=== PATIENT | female | born 1930 | race Caucasian/White ===

== ENCOUNTER 2016-11-04 17:10 | Emergency (ER) | payer MEDICARE, BC ==
[2016-11-04] MEDS ORDERED: Sodium Chloride 0.9% 10 ML Syringe FLUSH PRN ×2 (17:23→18:54)
[2016-11-04] MEDS ORDERED: Aspirin 81 MG Tab.Chew PO ONE (17:23)
[2016-11-04] MEDS ORDERED: Nitroglycerin/D5W 25 MG/250 ML BOTTLE IV SCH (17:30)
[2016-11-04] MEDS ORDERED: Sodium Chloride 0.9% 1,000 ML ONE (17:38)
[2016-11-04] MEDS ORDERED: HYDROmorphone 0.5 MG/0.5 ML Syringe IVPUSH ONE (18:17)
[2016-11-04] MEDS ORDERED: Ondansetron 4 MG/2 ML SDV IVPUSH ONE (18:26)
[2016-11-04] MEDS ORDERED: Iopamidol 755 Mg/ML 100 ML Bottle IVPUSH ONE (18:54)
[2016-11-04] MEDS ORDERED: Sodium Chloride 0.9% 100 ML IV SCH (19:00)
--- NOTE | 2016-11-04 19:29 | EDM.PDOC ---
ED HPI GENERAL MEDICAL PROBLEM - General Chief Complaint: Chest Pain Stated Complaint: CHEST PAIN Time Seen by Provider: 11/04/16 17:28 Source of Information: Reports: Patient History Limitations: Reports: No Limitations - History of Present Illness INITIAL COMMENTS - FREE TEXT/NARRATIVE: 86-year-old female presents for evaluation and treatment of epigastric chest pain. Patient reports that the pain is present in the epigastric area and radiates into her chest and back. She states that it started at noon today. Patient reports that she was eating prior to the pain starting. She reports that she had similar symptoms 1 week ago but they resolved on their own and did not last this long. Patient describes the pain as a pressure. She states that its worse it is a 10 out of 10. She reports associated nausea. She denies any shortness of breath, dizziness, lightheadedness, diaphoresis or vomiting. She also reports headaches. Patient is not a diabetic. She is not a cigarette smoker and never has been. Patient reports past cardiac history of a stent placed. No history of valvular disease or arrhythmias. Onset: Today, Sudden Location: Reports: Chest, Abdomen (epigastric), Back Severity: Severe Lower Chest Pain Score (Numeric/FACES): 5 - Related Data Allergies Allergy/AdvReac Type Severity Reaction Status Date / Time fluticasone Allergy Airway Verified 11/05/16 16:14 Tightness Home Meds: Home Meds Acetaminophen/Caffeine [Excedrin Tension Headache] 500 mg PO DAILY 11/11/14 [ History] Calcium Carbonate [Calcium] 600 mg PO DAILY 11/11/14 [History] Levothyroxine [Synthroid] 88 mcg PO DAILY 11/11/14 [History] Lutein/Minerals/Vit A,C & E [Ocuvite] 1 tab PO DAILY 11/11/14 [History] Metoprolol Succinate [Toprol XL 50mg] 50 mg PO DAILY 11/11/14 [History] Tetrahydrz/Dext 70/Peg 400/Pvp [Visine Advanced Eye Drop] 1 drop TOP ASDIRECTED 11/11/14 [History] Bimatoprost [Lumigan 0.03% Ophth Soln] 1 drop TOP BEDTIME 07/19/15 [History] Timolol Maleate [Timoptic 0.5% Ophth Soln] 1 drop TOP BID 07/19/15 [History] Losartan Potassium [Cozaar] 50 mg PO DAILY 07/21/15 [History] Furosemide [Lasix] 20 mg PO DAILY #30 tablet 09/15/15 [Rx] Acetaminophen [Tylenol Extra Strength] 500 mg PO Q6H PRN 11/04/16 [History] Past Medical History HEENT History: Reports: Glaucoma, Impaired Vision, Macular Degeneration Cardiovascular History: Reports: High Cholesterol, Hypertension Respiratory History: Reports: SOB Genitourinary History: Reports: None BOTTOM CAGER History: Reports: Musculoskeletal History: Reports: Osteoporosis, Other (See Below) Other Musculoskeletal History: finger fracture, fractured shoulder blade Neurological History: Reports: Headaches, Chronic Psychiatric History: Reports: None Endocrine/Metabolic History: Reports: Hypothyroidism Oncologic (Cancer) History: Reports: Lymphoma Other Oncologic History: had radiation on throat-2008 - Past Surgical History HEENT Surgical History: Reports: Cataract Surgery, Tonsillectomy Cardiovascular Surgical History: Reports: Coronary Artery Stent GI Surgical History: Reports: Appendectomy Female Surgical History: Reports: Hysterectomy Social & Family History - Family History Family Medical History: Noncontributory Cardiac: Reports: Pacemaker - Tobacco Use Smoking Status *Q: Never Smoker Second Hand Smoke Exposure: No - Caffeine Use Caffeine Use: Reports: Coffee - Recreational Drug Use Recreational Drug Use: No - Living Situation & Occupation Living situation: Reports: , Alone Occupation: Retired ED ROS GENERAL - Review of Systems Review Of Systems: See Below Constitutional: Denies: Diaphoresis Respiratory: Denies: Shortness of Breath Cardiovascular: Reports: Chest Pain, Blood Pressure Problem. Denies: Edema, Lightheadedness GI/Abdominal: Reports: Abdominal Pain (epigastric), Nausea. Denies: Vomiting Musculoskeletal: Reports: Back Pain (chest pain radiates to the back). Denies: Neck Pain Neurological: Reports: Headache. Denies: Dizziness ED EXAM, GENERAL - Physical Exam Exam: See Below Exam Limited By: No Limitations General Appearance: Alert, WD/WN, No Apparent Distress, Thin Throat/Mouth: Normal Inspection, Normal Voice, No Airway Compromise Respiratory/Chest: No Respiratory Distress, Lungs Clear, Normal Breath Sounds Cardiovascular: Normal Peripheral Pulses, Regular Rate, Rhythm, No Murmur Peripheral Pulses: 2+: Radial (L), Radial (R), Posterior Tibial (L), Posterior Tibial (R), Dorsalis Pedis (L), Dorsalis Pedis (R) GI/Abdominal: Normal Bowel Sounds, Tender (epigastric) Neurological: Alert, Oriented, Normal Cognition Psychiatric: Normal Affect, Normal Mood Skin Exam: Warm, Dry, Normal Color EKG INTERPRETATION EKG Date: 11/04/16 Time: 17:15 Rhythm: NSR Rate (Beats/Min): 68 [place]: Normal P-Wave: Present QRS: Normal ST-T: Normal QT: Normal Comparison: No Change EKG Interpretation Comments: NSR at 68 bpm. Early "R" wave transition - consider septal hypertrophy. LVH with strain pattern. ST depression V4-V6, II, III and AVF - consider inferior wall ischemia. Reviewed by myself and Dr. Sidhu. Course - Vital Signs Last Recorded V/S: Last Vital Signs Temp 36.7 C 11/04/16 17:17 Pulse 64 11/04/16 20:38 Resp 18 11/04/16 20:38 BP 146/86 H 11/04/16 20:38 Pulse Ox 98 11/04/16 20:38 - Orders/Labs/Meds Labs: Laboratory Tests 11/04/16 11/04/16 11/04/16 Range/Units 17:30 17:30 17:30 WBC 6.95 (3.98-10.04) K/mm3 RBC 3.99 (3.98-5.22) M/mm3 Hgb 11.7 (11.2-15.7) gm/L Hct 37.4 (34.1-44.9) % MCV 93.7 (79.4-94.8) fl MCH 29.3 (25.6-32.2) pg MCHC 31.3 L (32.2-35.5) g/dl RDW Std Deviation 44.4 (36.4-46.3) fL Plt Count 211 (182-369) K/mm3 MPV 9.1 L (9.4-12.3) fl Neut % (Auto) 81.4 H (34.0-71.1) % Lymph % (Auto) 7.9 L (19.3-51.7) % [place] % (Auto) 9.4 (4.7-12.5) % Eos % (Auto) 0.9 (0.7-5.8) Baso % (Auto) 0.3 (0.1-1.2) % Neut # (Auto) 5.66 (1.56-6.13) K/mm3 Lymph # (Auto) 0.55 L (1.18-3.74) K/mm3 [place] # (Auto) 0.65 H (0.24-0.36) K/mm3 Eos # (Auto) 0.06 (0.04-0.36) K/mm3 Baso # (Auto) 0.02 (0.01-0.08) K/mm3 Manual Slide Review Abnormal smear D-Dimer, Quantitative (0.19-0.59) mg/L Sodium 137 (136-145) mEq/L Potassium 4.0 (3.5-5.1) mEq/L Chloride 100 (98-107) mEq/L Carbon Dioxide 28 (21-32) mEq/L Anion Gap 13.0 (5-15) BUN 24 H (7-18) mg/dL Creatinine 1.0 (0.55-1.02) mg/dL Est Cr Clr Drug Dosing 32.53 mL/min Estimated GFR (MDRD) 53 (>60) mL/min BUN/Creatinine Ratio 24.0 H (14-18) Glucose 110 (83-115) mg/dL Calcium 9.0 (8.5-10.1) mg/dL Magnesium 1.6 L (1.8-2.4) mg/dl Total Bilirubin 0.3 (0.2-1.0) mg/dL AST 29 (15-37) U/L ALT 20 (14-59) U/L Alkaline Phosphatase 67 (46-116) U/L Troponin I < 0.017 (0.00-0.056) ng/mL B-Natriuretic Peptide 721 H (0-100) pg/mL Total Protein 7.3 (6.4-8.2) g/dl Albumin 3.7 (3.4-5.0) g/dl Globulin 3.6 gm/dL Albumin/Globulin Ratio 1.0 (1-2) Lipase 160 (73-393) U/L 11/04/ Range/Units 17:30 WBC (3.98-10.04) K/mm3 RBC (3.98-5.22) M/mm3 Hgb (11.2-15.7) gm/L Hct (34.1-44.9) % MCV (79.4-94.8) fl MCH (25.6-32.2) pg MCHC (32.2-35.5) g/dl RDW Std Deviation (36.4-46.3) fL Plt Count (182-369) K/mm3 MPV (9.4-12.3) fl Neut % (Auto) (34.0-71.1) % Lymph % (Auto) (19.3-51.7) % [place] % (Auto) (4.7-12.5) % Eos % (Auto) (0.7-5.8) Baso % (Auto) (0.1-1.2) % Neut # (Auto) (1.56-6.13) K/mm3 Lymph # (Auto) (1.18-3.74) K/mm3 [place] # (Auto) (0.24-0.36) K/mm3 Eos # (Auto) (0.04-0.36) K/mm3 Baso # (Auto) (0.01-0.08) K/mm3 Manual Slide Review D-Dimer, Quantitative 3.68 H (0.19-0.59) mg/L Sodium (136-145) mEq/L Potassium (3.5-5.1) mEq/L Chloride (98-107) mEq/L Carbon Dioxide (21-32) mEq/L Anion Gap (5-15) BUN (7-18) mg/dL Creatinine (0.55-1.02) mg/dL Est Cr Clr Drug Dosing mL/min Estimated GFR (MDRD) (>60) mL/min BUN/Creatinine Ratio (14-18) Glucose (83-115) mg/dL Calcium (8.5-10.1) mg/dL Magnesium (1.8-2.4) mg/dl Total Bilirubin (0.2-1.0) mg/dL AST (15-37) U/L ALT (14-59) U/L Alkaline Phosphatase (46-116) U/L Troponin I (0.00-0.056) ng/mL B-Natriuretic Peptide (0-100) pg/mL Total Protein (6.4-8.2) g/dl Albumin (3.4-5.0) g/dl Globulin gm/dL Albumin/Globulin Ratio (1-2) Lipase (73-393) U/L Meds: Medications Discontinued Medications Generic Name Dose Route Start Last Admin Trade Name Freq PRN Reason Stop Dose Admin Aspirin 324 mg 11/04/16 17:23 11/04/16 17:40 Aspirin PO 11/04/16 17:24 324 mg ONETIME ONE Administration Al Hydroxide/Mg Hydroxide 30 0 ml 11/04/16 21:03 11/04/16 21:12 ml/ Lidocaine HCl 15 ml PO 11/04/16 21:04 45 ml ONETIME ONE Administration Hydromorphone HCl 0.5 mg 11/04/16 18:17 11/04/16 18:30 Dilaudid IVPUSH 11/04/16 18:18 0.5 mg ONETIME ONE Administration Nitroglycerin/Dextrose 25 mg in 250 mls @ 6 mls/hr 11/04/16 17:30 11/04/16 17 :42 Nitroglycerin 25 Mg/D5w 250 Ml IV 10 mcg/min TITRATE SOLANGE 6 mls/hr Protocol Administration 10 MCG/MIN Sodium Chloride Confirm 11/04/16 17:38 Normal Saline Administered 11/04/16 17:39 Dose 1,000 mls @ as directed .ROUTE .STK-MED ONE Sodium Chloride 100 mls @ 65 mls/hr 11/04/16 19:00 11/04/16 19:26 Normal Saline IV 65 mls/hr ASDIRECTED SOLANGE Administration Iopamidol 100 ml 11/04/16 18:54 11/04/16 19:26 Isovue-370 (76%) IVPUSH 11/04/16 18:55 100 ml ONETIME ONE Administration Ondansetron HCl 4 mg 11/04/16 18:26 11/04/16 18:28 Zofran IVPUSH 11/04/16 18:27 4 mg ONETIME ONE Administration Sodium Chloride 10 ml 11/04/16 17:23 11/04/16 17:42 Saline Flush FLUSH 10 ml ASDIRECTED PRN Administration Keep Vein Open Sodium Chloride 10 ml 11/04/16 18:54 11/04/16 19:26 Saline Flush FLUSH 10 ml ONETIME PRN Administration IV FLUSH - Radiology Interpretation Free Text/Narrative:: CT of the chest with contrast impression per Dr. Robbnis: Impression: 1. 2 slightly irregular nodules within the right upper chest. These appear fairly similar to prior study and felt to represent focal areas of scarring. 2. Emphysematous changes are seen within the lungs. 3. No findings of aortic dissection. Other incidental findings as described above. CT of the abdomen and pelvis with contrast impression per Dr. Robbins: Impression: 1. Questionable gallbladder wall thickening with slight intrahepatic and extrahepatic biliary duct dilatation. This may be incidental but please correlate if patient has any gallbladder symptoms to indicate abdominal ultrasound. 2. Other incidental findings. Nothing acute is otherwise appreciated. Chest 1 view shows no acute intrathoracic process. - Re-Assessments/Exams Free Text/Narrative Re-Assessment/Exam: 11/04/16 17:[address] Sidhu. Recommended starting a nitro drip at 10mcg. Patient has received aspirin. EKG reviewed and shows no change from previous ekg. 11/04/16 18:50 Labs returned. WBC normal at 6.95, hgb is 11.7 and plts are 211 sodium is 137, potassium is 4.0 and chloride is 100. anion gap is 13.0 . BUN 24 and creatinine is 1.0 trop is within normal limits at <0.017 BNP elevated at 721. lipase is normal at 160 d-dimer elevated at 3.68 mag is 1.6 AST is 29, ALT is 20 and alk phos is 67. Total bili is 0.3 Pain worsening. With a normal trop and ekg I had nursing staff stop the nitro drip. Will give dilaudid 0.5 mg IV. Patient also reports increasing nausea. Zofran 4mg IV ordered. Ct of the chest ordered to rule out PE. CT of the abdomen and pelvis added to rule out dissection. 11/04/16 21:07 Reports pain has mostly resolved. Will try a GI cocktail to see if we can alleviate pain. 11/04/16 21:15 Patient is anxious to go at this point. I reviewed the CT results with them. I feel this is likely her gallbladder causing problems. It is also possible that it is reflux. I offered her an outpatient ultrasound to further evaluate her gallbladder. She states she would like to follow-up with her primary care provider and discuss further imaging. We will discharge home at this time. Discharge instructions as documented. Departure - Departure Time of Disposition: 21:15 Disposition: Home, Self-Care 01 Condition: Fair Clinical Impression: Gallbladder attack Instructions: Cholecystitis Referrals: Wilbert Bloom MD [Primary Care Provider] - Forms: ED Department Discharge Additional Instructions: Follow up with your primary care provider this week. I recommend you discuss further imaging to evaluate for gallstones. You may an ultrasound or further testing to evaluate the etiology of your pain. Avoid fatty foods and spicy foods. Please return to the ER if your symptoms change or worsen.
--- NOTE | 2016-11-04 20:09 | CT ---
CT chest Technique: Multiple axial sections through the chest were obtained. Intravenous contrast was utilized. Study was performed as an aortogram exam. Comparison: Previous CT right shoulder study showing the right upper lung parenchyma dated 09/20/[address] of 12/30/14. Findings: Thoracic aorta shows some ectasia. Mild diffuse plaque is seen within the thoracic aorta. No focal aneurysm or dissection is identified within the thoracic aorta. Mediastinum and hilar regions show no adenopathy or mass. There is fairly prominent coronary artery calcification is seen. Pulmonary arteries are enlarged suggesting some pulmonary arterial hypertension likely from emphysematous change. Small nodule is noted within the right upper lung which shows minimal spiculation measuring about 1.3 cm. Second nodule is seen within the right upper lung with slight spiculation measuring 1.2 cm. Mild emphysematous changes are present. Mild scarring is noted within the lingula. Heart is enlarged. Pulmonary arteries are fairly well-opacified which show no filling defects to indicate pulmonary embolism. Bone window settings were reviewed which show kyphosis within the spine. Several compression deformities are seen within the thoracic spine which are felt to be old. Deformity of the right scapula is seen compatible with old fracture. Impression: 1. 2 slightly irregular nodules within the right upper chest. These appear fairly similar to prior study and felt to represent focal areas of scarring. 2. Emphysematous changes are seen within the lungs. 3. No findings of aortic dissection. Other incidental findings as described above. Diagnostic code #3 CT abdomen and pelvis Technique: Multiple axial sections through the abdomen and pelvis were obtained. Intravenous contrast was utilized. No oral contrast has been given. Comparison: Previous CT abdomen and pelvis exam of 12/28/12. Findings: Liver shows no focal abnormality. Gallbladder shows no calcified gallstones with equivocal gallbladder wall thickening. Mild intrahepatic biliary duct dilatation is appreciated. Common bile duct measures slightly prominent 1 cm. Spleen appears within normal limits. Adrenal glands are not well seen but felt to be without definite nodule. Kidneys show symmetric contrast enhancement without hydronephrosis or mass. Aorta shows diffuse atherosclerotic calcification without dissection or aneurysm. No retroperitoneal adenopathy or mesenteric abnormalities are seen. No pelvic mass or adenopathy is seen. Numerous diverticuli are seen within sigmoid colon and descending colon with no inflammatory change. No free fluid is seen. No bowel dilatation is identified. Disc space narrowing noted at L4-L5. Vacuum phenomena is seen within the L5-S1. Impression: 1. Questionable gallbladder wall thickening with slight intrahepatic and extrahepatic biliary duct dilatation. This may be incidental but please correlate if patient has any gallbladder symptoms to indicate abdominal ultrasound. 2. Other incidental findings. Nothing acute is otherwise appreciated. Diagnostic code #3
[2016-11-04 20:40] VITALS: BP 146/86
[2016-11-04] MEDS ORDERED: Alum Hydrox/Mag Hydrox/Simeth 30 ML, Lidocaine 2% 15 ML PO ONE ×2 (21:03)
--- NOTE | 2016-11-05 09:10 | CR ---
Chest: Portable view of the chest was obtained. Comparison: Previous chest x-ray of 09/14/15. Heart is mildly enlarged. Tortuous thoracic aorta is seen. Apical pleural thickening is seen. Lungs are clear with no acute infiltrates. Deformity of the right scapula compatible with old fracture is seen. Mild scoliosis is noted within the spine. Bony structures are osteopenic. Vascular calcification is seen. Impression: 1. Findings as noted above. Nothing acute is appreciated. Diagnostic code #2
== END 2016-11-04 21:34 | disposition home or self-care (01) ==
LOC: JD.ED 17:10
DX: K82.9 Disease of gallbladder, unspecified (principal); E78.00 Pure hypercholesterolemia, unspecified; I10 Essential (primary) hypertension; E03.9 Hypothyroidism, unspecified; Z90.49 Acquired absence of other specified parts of digestive tract; Z88.8 Allergy status to other drugs, medicaments and biological substances; Z79.899 Other long term (current) drug therapy; Z90.710 Acquired absence of both cervix and uterus
CPT/HCPCS: 36415; 71010; 71260; 74177; 80053; 83690; 83735; 83880; 84484; 85025; 85379; 93005; 96365; 96375; 99285; A9270; J1170; J2405; J7030; J7050; Q9967; 99284

== ENCOUNTER 2016-11-05 16:00 | Emergency (ER) | payer MEDICARE, BC ==
[2016-11-05] MEDS ORDERED: Sodium Chloride 0.9% 10 ML Syringe FLUSH PRN (16:28)
[2016-11-05] MEDS ORDERED: Sodium Chloride 0.9% 500 ML IV ONE (16:41)
[2016-11-05] MEDS ORDERED: Ondansetron 4 MG/2 ML SDV IVPUSH ONE (16:41)
[2016-11-05] MEDS ORDERED: HYDROmorphone 0.5 MG/0.5 ML Syringe IVPUSH ONE ×3 (16:41→22:39)
--- NOTE | 2016-11-05 17:03 | EDM.PDOC ---
<Toño Velazco Ban - Last Filed: 11/05/16 19:54> ED HPI GENERAL MEDICAL PROBLEM - General Chief Complaint: Abdominal Pain Stated Complaint: RIGHT SIDE ABDOMINAL PAIN Time Seen by Provider: 11/05/16 16:11 Source of Information: Reports: Patient, RN Notes Reviewed - History of Present Illness INITIAL COMMENTS - FREE TEXT/NARRATIVE: 86-year-old lady has been brought in by family with abdominal pain. She had upper midepigastric chest discomfort yesterday afternoon and evening evaluated and treated here in the ED. Workup did include labs, chest abdominal and pelvic CT. See that record for details and see radiology report for details. The CT did show some questionable wall thickening of the gallbladder and possible mild hepatic duct dilatation during about 1 cm. She did get good complete relief of pain while here in the ED so allowed to go home with instructions for clinic follow-up. However she started having pain again this morning worse after eating breakfast and worse again after eating some milk and cereal for an early lunch. Today her pain is primarily right upper abdomen without radiation. He states yesterday the discomfort did radiate into her back. Some nausea but no vomiting. She denies diarrhea or constipation. She did have a BM yesterday but has not had one today. right lower abdomen Pain Score (Numeric/FACES): 10 - Related Data Allergies Allergy/AdvReac Type Severity Reaction Status Date / Time fluticasone Allergy Airway Verified 11/05/16 16:14 Tightness Home Meds: Home Meds Acetaminophen/Caffeine [Excedrin Tension Headache] 500 mg PO DAILY 11/11/14 [ History] Calcium Carbonate [Calcium] 600 mg PO DAILY 11/11/14 [History] Levothyroxine [Synthroid] 88 mcg PO DAILY 11/11/14 [History] Lutein/Minerals/Vit A,C & E [Ocuvite] 1 tab PO DAILY 11/11/14 [History] Metoprolol Succinate [Toprol XL 50mg] 50 mg PO DAILY 11/11/14 [History] Tetrahydrz/Dext 70/Peg 400/Pvp [Visine Advanced Eye Drop] 1 drop TOP ASDIRECTED 11/11/14 [History] Bimatoprost [Lumigan 0.03% Ophth Soln] 1 drop TOP BEDTIME 07/19/15 [History] Timolol Maleate [Timoptic 0.5% Ophth Soln] 1 drop TOP BID 07/19/15 [History] Losartan Potassium [Cozaar] 50 mg PO DAILY 07/21/15 [History] Furosemide [Lasix] 20 mg PO DAILY #30 tablet 09/15/15 [Rx] Acetaminophen [Tylenol Extra Strength] 500 mg PO Q6H PRN 11/04/16 [History] Past Medical History HEENT History: Reports: Glaucoma, Impaired Vision, Macular Degeneration Cardiovascular History: Reports: High Cholesterol, Hypertension Respiratory History: Reports: SOB Gastrointestinal History: Reports: Cholelithiasis Genitourinary History: Reports: None [employer] History: Reports: Musculoskeletal History: Reports: Osteoporosis, Other (See Below) Other Musculoskeletal History: finger fracture, fractured shoulder blade Neurological History: Reports: Headaches, Chronic Psychiatric History: Reports: None Endocrine/Metabolic History: Reports: Hypothyroidism Oncologic (Cancer) History: Reports: Lymphoma Other Oncologic History: had radiation on throat-2008 - Past Surgical History HEENT Surgical History: Reports: Cataract Surgery, Tonsillectomy Cardiovascular Surgical History: Reports: Coronary Artery Stent GI Surgical History: Reports: Appendectomy Female Surgical History: Reports: Hysterectomy Dermatological Surgical History: Reports: None Social & Family History - Family History Family Medical History: Noncontributory Cardiac: Reports: Pacemaker - Tobacco Use Smoking Status *Q: Never Smoker Second Hand Smoke Exposure: No - Caffeine Use Caffeine Use: Reports: Coffee, Soda - Recreational Drug Use Recreational Drug Use: No - Living Situation & Occupation Living situation: Reports: , Alone Occupation: Retired ED ROS GENERAL - Review of Systems Review Of Systems: See Below Constitutional: Denies: Fever, Chills HEENT: Reports: No Symptoms Respiratory: Denies: Shortness of Breath, Wheezing, Pleuritic Chest Pain Cardiovascular: Denies: Chest Pain GI/Abdominal: Reports: Abdominal Pain (Right upper quadrant), Nausea. Denies: Constipation, Diarrhea, Vomiting Musculoskeletal: Reports: Back Pain (Yesterday, gone). Denies: Leg Pain Skin: Reports: No Symptoms Neurological: Reports: No Symptoms ED EXAM, GI/ABD - Physical Exam Exam: See Below General Appearance: Alert, Moderate Distress Throat/Mouth: Normal Inspection, Normal Oropharynx Head: Atraumatic. No: Facial Swelling Neck: Normal Inspection, Supple, Full Range of Motion Respiratory/Chest: No Respiratory Distress, Lungs Clear, Normal Breath Sounds Cardiovascular: Regular Rate, Rhythm GI/Abdominal: Soft, Tenderness (Moderate tenderness right upper quadrant, remainder of abdomen is nontender). No: Guarding, Rebound Back Exam: CVA Tenderness (R) (Mild) Extremities: No: Pedal Edema, Leg Pain Neurological: Alert, Oriented, No Motor/Sensory Deficits Skin Exam: Warm, Dry, Normal Color Course - Vital Signs Last Recorded V/S: Last Vital Signs Temp 37.2 C 11/05/16 16:07 Pulse 71 11/05/16 16:07 Resp 18 11/05/16 16:07 BP 176/83 H 11/05/16 16:07 Pulse Ox 94 L 11/05/16 16:07 - Orders/Labs/Meds Orders: Active Orders 24 hr Category Date Time Status Peripheral IV Care [RC] . DIRECTED Care 11/05/16 16:29 Active Sodium Chloride 0.9% [Saline Flush] Med 11/05/16 16:28 Active 10 ml FLUSH ASDIRECTED PRN Peripheral IV Insertion Adult [OM.PC] Stat Oth 11/05/16 16:29 Ordered Medication Orders Sodium Chloride (Saline Flush) 10 ml FLUSH ASDIRECTED PRN PRN Reason: Keep Vein Open Last Admin: 11/05/16 20:29 Dose: 10 ml Labs: Laboratory Tests 11/05/16 11/05/16 11/05/16 Range/Units 16:54 16:54 16:54 WBC 9.40 (3.98-10.04) K/mm3 RBC 3.99 (3.98-5.22) M/mm3 Hgb 11.6 (11.2-15.7) gm/L Hct 37.0 (34.1-44.9) % MCV 92.7 (79.4-94.8) fl MCH 29.1 (25.6-32.2) pg MCHC 31.4 L (32.2-35.5) g/dl RDW Std Deviation 44.9 (36.4-46.3) fL Plt Count 195 (182-369) K/mm3 MPV 8.9 L (9.4-12.3) fl Neut % (Auto) 80.1 H (34.0-71.1) % Lymph % (Auto) 6.0 L (19.3-51.7) % [place] % (Auto) 13.3 H (4.7-12.5) % Eos % (Auto) 0.4 L (0.7-5.8) Baso % (Auto) 0.1 (0.1-1.2) % Neut # (Auto) 7.53 H (1.56-6.13) K/mm3 Lymph # (Auto) 0.56 L (1.18-3.74) K/mm3 [place] # (Auto) 1.25 H (0.24-0.36) K/mm3 Eos # (Auto) 0.04 (0.04-0.36) K/mm3 Baso # (Auto) 0.01 (0.01-0.08) K/mm3 Manual Slide Review Normal smear Sodium 133 L (136-145) mEq/L Potassium 3.9 (3.5-5.1) mEq/L Chloride 97 L (98-107) mEq/L Carbon Dioxide 29 (21-32) mEq/L Anion Gap 10.9 (5-15) BUN 17 (7-18) mg/dL Creatinine 0.9 (0.55-1.02) mg/dL Est Cr Clr Drug Dosing TNP Estimated GFR (MDRD) 60 (>60) mL/min BUN/Creatinine Ratio 18.9 H (14-18) Glucose 99 (83-115) mg/dL Calcium 9.3 (8.5-10.1) mg/dL Total Bilirubin 0.7 (0.2-1.0) mg/dL GGT (5-55) U/L AST 32 (15-37) U/L ALT 24 (14-59) U/L Alkaline Phosphatase 66 (46-116) U/L C-Reactive Protein 3.7 H* (<1.0) mg/dL B-Natriuretic Peptide (0-100) pg/mL Total Protein 7.3 (6.4-8.2) g/dl Albumin 3.5 (3.4-5.0) g/dl Globulin 3.8 gm/dL Albumin/Globulin Ratio 0.9 L (1-2) 11/05/16 11/05/16 Range/Units 16:54 16:54 WBC (3.98-10.04) K/mm3 RBC (3.98-5.22) M/mm3 Hgb (11.2-15.7) gm/L Hct (34.1-44.9) % MCV (79.4-94.8) fl MCH (25.6-32.2) pg MCHC (32.2-35.5) g/dl RDW Std Deviation (36.4-46.3) fL Plt Count (182-369) K/mm3 MPV (9.4-12.3) fl Neut % (Auto) (34.0-71.1) % Lymph % (Auto) (19.3-51.7) % [place] % (Auto) (4.7-12.5) % Eos % (Auto) (0.7-5.8) Baso % (Auto) (0.1-1.2) % Neut # (Auto) (1.56-6.13) K/mm3 Lymph # (Auto) (1.18-3.74) K/mm3 [place] # (Auto) (0.24-0.36) K/mm3 Eos # (Auto) (0.04-0.36) K/mm3 Baso # (Auto) (0.01-0.08) K/mm3 Manual Slide Review Sodium (136-145) mEq/L Potassium (3.5-5.1) mEq/L Chloride (98-107) mEq/L Carbon Dioxide (21-32) mEq/L Anion Gap (5-15) BUN (7-18) mg/dL Creatinine (0.55-1.02) mg/dL Est Cr Clr Drug Dosing Estimated GFR (MDRD) (>60) mL/min BUN/Creatinine Ratio (14-18) Glucose (83-115) mg/dL Calcium (8.5-10.1) mg/dL Total Bilirubin (0.2-1.0) mg/dL GGT 24 (5-55) U/L AST (15-37) U/L ALT (14-59) U/L Alkaline Phosphatase (46-116) U/L C-Reactive Protein (<1.0) mg/dL B-Natriuretic Peptide 802 H (0-100) pg/mL Total Protein (6.4-8.2) g/dl Albumin (3.4-5.0) g/dl Globulin gm/dL Albumin/Globulin Ratio (1-2) Meds: Medications Generic Name Dose Route Start Last Admin Trade Name Freq PRN Reason Stop Dose Admin Sodium Chloride 10 ml 11/05/16 16:28 11/05/16 20:29 Saline Flush FLUSH 10 ml ASDIRECTED PRN Administration Keep Vein Open Discontinued Medications Generic Name Dose Route Start Last Admin Trade Name Ceferinoq PRN Reason Stop Dose Admin Hydromorphone HCl 0.25 mg 11/05/16 16:41 11/05/16 17:05 Dilaudid IVPUSH 11/05/16 16:42 0.25 mg ONETIME ONE Administration Hydromorphone HCl 0.25 mg 11/05/16 20:17 11/05/16 20:27 Dilaudid IVPUSH 11/05/16 20:18 0.25 mg ONETIME ONE Administration Hydromorphone HCl 0.25 mg 11/05/16 22:39 Dilaudid IVPUSH 11/05/16 22:40 ONETIME ONE Sodium Chloride 500 mls @ 999 mls/hr 11/05/16 16:41 11/05/16 17:02 Normal Saline IV 11/05/16 17:11 999 mls/hr .BOLUS ONE Administration Ceftriaxone Sodium 1 gm/ 100 mls @ 200 mls/hr 11/05/16 20:58 11/05/16 21:18 Sodium Chloride IV 11/05/16 21:27 200 mls/hr ONETIME ONE Administration Ondansetron HCl 4 mg 11/05/16 16:41 11/05/16 17:03 Zofran IVPUSH 11/05/16 16:42 4 mg ONETIME ONE Administration - Re-Assessments/Exams Free Text/Narrative Re-Assessment/Exam: 11/05/16 19:40. Labs are relatively OK, US just completed a few minutes ago. awaiting Radiologist report. Well past change of shift, will transfer care to Dr Castillo at this time. Departure - Departure Disposition: DC/[facility]fer to Acute Hospital 02 Clinical Impression: Acute cholecystitis due to biliary calculus - Discharge Information <Sathish Castillo - Last Filed: 11/05/16 22:47> Course - Radiology Interpretation Free Text/Narrative:: Limited abdominal ultrasound is read by Dr. Robbins as: 1. Gallstones as well as sludge within the gallbladder. Gallbladder wall is thickened with mild gallbladder wall edema and mild pericholecystic fluid. Common bile duct slightly prominent at 7.4 mm. Findings highly suspicious for acute cholecystitis. 2. Small cyst within the right kidney. 3. No additional abnormality is identified on right upper quadrant abdominal ultrasound. - Re-Assessments/Exams Free Text/Narrative Re-Assessment/Exam: 11/05/16 20:[address] Mima Be at 20:20. She will review the patient's chart and call me back. 11/05/16 21:[address] Be at 20:53. She feels that the patient would benefit from cholecystectomy in the morning, however, she found from the patient 's office medical records that the patient has numerous comorbidities we were not aware of, including diastolic congestive heart failure. She is also concerned about the patient's known coronary artery disease, status post a single coronary stent. Additionally, no beds are available at this facility, therefore the patient will need to be transferred. She is recommending that I add a BNP to the patient's labs, and order IV Rocephin. The above was then discussed with the patient and her daughter, at the bedside. They are agreeable to transfer, and I do not object to transferring by private vehicle. Case then discussed with Dr. Faye, Hospitalist at [facility] at 21: 30. He accepts the patient for direct admission. 11/05/16 22:11 Notified that the patient and her daughter have changed their mind, and would now prefer transfer by ambulance. They are aware that it may be several hours before an ambulance is available. 11/05/16 22:45 The patient will be transported by [facility]. Departure - Departure Time of Disposition: 22:45 Condition: Fair
--- NOTE | 2016-11-05 19:59 | US ---
Limited abdominal ultrasound: Multiple real-time images of the upper right abdomen were obtained. Comparison: Previous CT abdomen and pelvis exam of 11/04/16 is available. Findings: Liver shows no focal parenchymal abnormality. Gallstones are identified. Gallbladder wall appears somewhat thickened. Pericholecystic fluid is seen as well as probable gallbladder wall edema. Common bile duct measures 7.4 mm which is slightly prominent in size. Sludge is also seen within the gallbladder. Small cyst is noted within the right kidney measuring about 1.1 cm. Right kidney shows no hydronephrosis. No abnormality is appreciated within the pancreas. Impression: 1. Gallstones as well as sludge within the gallbladder. Gallbladder wall is thickened with mild gallbladder wall edema and mild pericholecystic fluid. Common bile duct slightly prominent at 7.4 mm. Findings highly suspicious for acute cholecystitis. 2. Small cyst within the right kidney. 3. No additional abnormality is identified on right upper quadrant abdominal ultrasound. Diagnostic code #3
[2016-11-05] MEDS ORDERED: cefTRIAXone 1 GM in Sodium Chloride 0.9% 100 ML IV ONE (20:58)
[2016-11-05 23:37] VITALS: BP 178/71
== END 2016-11-05 23:25 ==
LOC: JD.ED 16:00
DX: K80.00 Calculus of gallbladder with acute cholecystitis without obstruction (principal); I10 Essential (primary) hypertension; E78.00 Pure hypercholesterolemia, unspecified; E03.9 Hypothyroidism, unspecified; Z88.8 Allergy status to other drugs, medicaments and biological substances; Z79.899 Other long term (current) drug therapy; Z98.890 Other specified postprocedural states; Z98.49 Cataract extraction status, unspecified eye; Z90.49 Acquired absence of other specified parts of digestive tract; Z90.710 Acquired absence of both cervix and uterus
CPT/HCPCS: 36415; 76705; 80053; 82977; 83880; 85025; 86140; 96361; 96365; 96375; 96376; 99285; J0696; J1170; J2405; J7030; J7040; J7050; 99284

== ENCOUNTER 2016-11-25 16:32 | Emergency (ER) | payer MEDICARE, BC ==
[2016-11-25] MEDS ORDERED: Sodium Chloride 0.9% 10 ML Syringe FLUSH PRN (16:48)
--- NOTE | 2016-11-25 16:48 | EDM.PDOC ---
ED HPI GENERAL MEDICAL PROBLEM - General Chief Complaint: Cardiovascular Problem Stated Complaint: HIGH BLOOD PRESSURE Time Seen by Provider: 11/25/16 16:43 Source of Information: Reports: Patient, Family (daughter) History Limitations: Reports: No Limitations - History of Present Illness INITIAL COMMENTS - FREE TEXT/NARRATIVE: 86-year-old female sent across to the hospital from Dr. Valdez's office where she was identified to have significant systolic hypertension. BP was over 220 on 3 different recordings. Current weight is 221/97 with a mean arterial pressure of 127. Her blood pressure has been going up since she had gallbladder surgery 2 weeks ago. Her losartan was increased from 50-100 mg daily last week. Blood pressure check today revealed it to be even higher than it was last week. Dr. Baez going to start her on Norvasc 5 mg a day but she has tried this in the past and developed severe headaches from this medication. Currently she is on metoprolol 100 mg once daily. She is also on furosemide 10 mg daily for blood pressure relief and edema. At present she has a dull frontal headache. She feels a little bit worse in terms of balance and being offkilter. She walks with aid of a quad cane. No recent falls or closed head injuries. Should will be worked up for renal vascular hypertension. She gives no history of past CVA or TIA. Onset: Unknown/Unsure (Blood pressure is been noted to be markedly elevated since having cholecystectomy 2 weeks ago.), Other Duration: Week(s): Location: Reports: Other (Elevated blood pressure.) Quality: Reports: Other (Mild frontal headache.) Severity: Severe Improves with: Reports: None Worsens with: Reports: None Context: Denies: Activity, Exercise, Lifting, Sick Contact, Trauma, Other Associated Symptoms: Reports: Headaches (Feels a little off balance. Diffuse frontal headache behind her eyes. Not unusual for her she gets a lot of tension headaches.), Malaise, Other. 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.) Headache Pain Score (Numeric/FACES): 3 - Related Data Allergies Allergy/AdvReac Type Severity Reaction Status Date / Time amlodipine Allergy Headache Verified 11/25/16 16:48 fluticasone Allergy Airway Verified 11/25/16 16:48 Tightness Home Meds: Home Meds Acetaminophen/Caffeine [Excedrin Tension Headache] 500 mg PO DAILY PRN 11/11/14 [History] Levothyroxine [Synthroid] 88 mcg PO DAILY 11/11/14 [History] Lutein/Minerals/Vit A,C & E [Ocuvite] 1 tab PO DAILY 11/11/14 [History] Metoprolol Succinate [Toprol XL 50mg] 100 mg PO DAILY 11/11/14 [History] Tetrahydrz/Dext 70/Peg 400/Pvp [Visine Advanced Eye Drop] 1 drop TOP ASDIRECTED 11/11/14 [History] Bimatoprost [Lumigan 0.03% Ophth Soln] 1 drop TOP BEDTIME 07/19/15 [History] Timolol Maleate [Timoptic 0.5% Ophth Soln] 1 drop TOP BID 07/19/15 [History] Losartan Potassium [Cozaar] 100 mg PO BEDTIME 07/21/15 [History] Acetaminophen [Tylenol Extra Strength] 500 mg PO Q6H PRN 11/04/16 [History] Ca Carbonate/Vitamin D3/Vit K [Calcium + D Soft Chewable Tab] 1 tab PO DAILY 03/04 [History] Furosemide [Lasix] 10 mg PO DAILY 11/25/16 [History] Furosemide [Lasix] 40 mg PO DAILY #30 tablet 11/25/16 [Rx] Prazosin [Minpress] 1 mg PO BID #60 cap 11/25/16 [Rx] Past Medical History HEENT History: Reports: Glaucoma, Impaired Vision, Macular Degeneration Cardiovascular History: Reports: High Cholesterol, Hypertension Respiratory History: Reports: SOB Gastrointestinal History: Reports: Cholelithiasis Genitourinary History: Reports: 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: Musculoskeletal History: Reports: Osteoporosis, Other (See Below) Other Musculoskeletal History: finger fracture, fractured shoulder blade Neurological History: Reports: Headaches, Chronic Psychiatric History: Reports: None Endocrine/Metabolic History: Reports: Hypothyroidism Oncologic (Cancer) History: Reports: Lymphoma Other Oncologic History: had radiation on throat-2008 - Past Surgical History HEENT Surgical History: Reports: Cataract Surgery, Tonsillectomy Cardiovascular Surgical History: Reports: Coronary Artery Stent GI Surgical History: Reports: Appendectomy Female Surgical History: Reports: Hysterectomy Dermatological Surgical History: Reports: None Social & Family History - Family History Family Medical History: Noncontributory Cardiac: Reports: Pacemaker - Tobacco Use Smoking Status *Q: Never Smoker Second Hand Smoke Exposure: No - Caffeine Use Caffeine Use: Reports: Coffee, Soda - Recreational Drug Use Recreational Drug Use: No - Living Situation & Occupation Living situation: Reports: , Alone Occupation: Retired ED ROS GENERAL - Review of Systems Review Of Systems: See Below Constitutional: Reports: Malaise, Weakness, Fatigue, Decreased Appetite, Weight Loss. Denies: Fever, Chills HEENT: Reports: Glasses, Vertigo Respiratory: Reports: Shortness of Breath (Off and on.). Denies: Wheezing, Pleuritic Chest Pain ( On exertion), Cough, Sputum, Hemoptysis, Other Cardiovascular: Reports: Blood Pressure Problem, Dyspnea on Exertion. Denies: Chest Pain, Claudication, Edema, Lightheadedness, Orthopnea (Very labile hypertension.), Palpitations (Chronically), PND, Syncope, Other Endocrine: Reports: Fatigue GI/Abdominal: Reports: Constipation (Occasional problems with constipation). Denies: Abdominal Pain, Stool Incontinence : Reports: Frequency, Incontinence Musculoskeletal: Reports: Neck Pain, Shoulder Pain ( Has marked kyphosis thoracic spine chronic low back pain and some shoulder pain and neck pain), Back Pain (Stress and urge component.), Other Skin: Reports: Bruising Neurological: Reports: Dizziness, Headache, Difficulty Walking, Gait Disturbance (Chronically.). Denies: Confusion, Syncope, Trouble Speaking, Weakness, Change in Speech Psychiatric: Reports: No Symptoms ( Feels off balance a good portion of the time ) Hematologic/Lymphatic: Reports: No Symptoms Immunologic: Reports: No Symptoms ED EXAM, GENERAL - Physical Exam Exam: See Below Exam Limited By: No Limitations General Appearance: Alert, WD/WN, No Apparent Distress Eye Exam: Bilateral Eye: Normal Inspection Throat/Mouth: Normal Inspection, Normal Oropharynx, Other Head: Atraumatic, Normocephalic (Tongue is mildly drive) Neck: Normal Inspection, Supple, Non-Tender, Full Range of Motion. No: Lymphadenopathy (L), Lymphadenopathy (R) Respiratory/Chest: No Respiratory Distress, No Accessory Muscle Use, Rales ( Identified in both lower lobes worse on the right as compared to the left.) Cardiovascular: Regular Rate, Rhythm (60/m sinus on the monitor.), No Edema, No Gallop, No Murmur, No Rub. No: Normal Peripheral Pulses (Few rales appreciated at the right lung base.) Peripheral Pulses: 1+: Posterior Tibial (L), Posterior Tibial (R), Dorsalis Pedis (L), Dorsalis Pedis (R) GI/Abdominal: Normal Bowel Sounds, Soft, Non-Tender, No Organomegaly, No Distention, Other (Bruising of the mid abdominal wall from recent cholecystectomy done laparoscopically. Tenderness right upper quadrant of the abdomen.) Back Exam: Other (Moderate kyphosis thoracic spine which would contribute to a restrictive lung component.) Extremities: Other (Atrophy of the muscles of her arms and legs appreciated.) Neurological: Alert, Oriented, CN II-XII Intact, Normal Cognition. No: Normal Gait, Normal Reflexes Psychiatric: Normal Affect, Normal Mood Skin Exam: Warm, Dry, Intact, Normal Color, No Rash, Other (Bruises on her forearms from IV sticks over the last few weeks.) Course - Vital Signs Last Recorded V/S: Last Vital Signs Temp 36.8 C 11/25/16 16:45 Pulse 62 11/25/16 18:32 Resp 16 11/25/16 16:45 BP 150/62 H 11/25/16 18:32 Pulse Ox 97 11/25/16 16:45 - Orders/Labs/Meds Orders: Active Orders 24 hr Category Date Time Status Peripheral IV Care [RC] . DIRECTED Care 11/25/16 16:48 Active Sodium Chloride 0.9% [Saline Flush] Med 11/25/16 16:48 Active 10 ml FLUSH ASDIRECTED PRN Peripheral IV Insertion Adult [OM.PC] Stat Oth 11/25/16 16:48 Ordered Medication Orders Sodium Chloride (Saline Flush) 10 ml FLUSH ASDIRECTED PRN PRN Reason: Keep Vein Open Last Admin: 11/25/16 17:10 Dose: 10 ml Labs: Laboratory Tests 11/25/16 11/25/16 11/25/16 Range/Units 16:50 16:50 16:50 WBC 5.10 (3.98-10.04) K/mm3 RBC 4.02 (3.98-5.22) M/mm3 Hgb 11.7 (11.2-15.7) gm/L Hct 38.3 (34.1-44.9) % MCV 95.3 H (79.4-94.8) fl MCH 29.1 (25.6-32.2) pg MCHC 30.5 L (32.2-35.5) g/dl RDW Std Deviation 47.2 H (36.4-46.3) fL Plt Count 319 (182-369) K/mm3 MPV 8.9 L (9.4-12.3) fl Neutrophils % (Manual) 63 H (40-60) % Band Neutrophils % 0 (0-10) % Lymphocytes % (Manual) 31 (20-40) % Atypical Lymphs % 0 % Monocytes % (Manual) 4 (2-10) % Eosinophils % (Manual) 1 (0.7-5.8) % Basophils % (Manual) 1 (0.1-1.2) Platelet Estimate Adequate Plt Morphology Comment Normal Poikilocytosis 1+ slight Anisocytosis 1+ slight RBC Morph Comment Not Reportable Sodium 135 L (136-145) mEq/L Potassium 4.7 (3.5-5.1) mEq/L Chloride 97 L (98-107) mEq/L Carbon Dioxide 31 (21-32) mEq/L Anion Gap 11.7 (5-15) BUN 20 H (7-18) mg/dL Creatinine 1.0 (0.55-1.02) mg/dL Est Cr Clr Drug Dosing TNP Estimated GFR (MDRD) 53 (>60) mL/min BUN/Creatinine Ratio 20.0 H (14-18) Glucose 97 (83-115) mg/dL Calcium 9.6 (8.5-10.1) mg/dL Total Bilirubin 0.3 (0.2-1.0) mg/dL AST 35 (15-37) U/L ALT 21 (14-59) U/L Alkaline Phosphatase 66 (46-116) U/L B-Natriuretic Peptide 868 H (0-100) pg/mL Total Protein 7.9 (6.4-8.2) g/dl Albumin 3.8 (3.4-5.0) g/dl Globulin 4.1 gm/dL Albumin/Globulin Ratio 0.9 L (1-2) Meds: Medications Generic Name Dose Route Start Last Admin Trade Name Freq PRN Reason Stop Dose Admin Sodium Chloride 10 ml 11/25/16 16:48 11/25/16 17:10 Saline Flush FLUSH 10 ml ASDIRECTED PRN Administration Keep Vein Open Discontinued Medications Generic Name Dose Route Start Last Admin Trade Name Denis PRN Reason Stop Dose Admin Furosemide 40 mg 11/25/16 18:14 11/25/16 18:20 Lasix IVPUSH 11/25/16 18:15 40 mg NOW ONE Administration Labetalol HCl 20 mg 11/25/16 16:57 Normodyne IVPUSH 11/25/16 16:58 ONETIME ONE Protocol Labetalol HCl 10 mg 11/25/16 18:16 11/25/16 18:21 Normodyne IVPUSH 11/25/16 18:17 10 mg ONETIME ONE Administration Protocol Prazosin HCl 1 mg 11/25/16 16:56 11/25/16 17:10 Minpress PO 11/25/16 16:57 1 mg ONETIME ONE Administration - Radiology Interpretation Free Text/Narrative:: 86-year-old female presents the clinic at the request of her personal physician Dr. morales. Blood pressure on clinic today was well over 220 on 3 different occasions. Daughter reports that this is what's been happening she's exhibited very labile blood pressures over the last 2 weeks since she had her gallbladder out. had increased her Losartan from 50-100 mg per day last week. She continues to have spikes in the systolic pressure primarily. Diastolics have ranged from 80-90. Heart rate is already 56 from metoprolol 100 mg a day. Plan I was about to give her labetalol 20 mg IV because blood pressure here was 224 systolic but her blood pressure dropped to 156/75 for a period of time therefore going to adopt a wait and see approach and only give her prazosin 1 mg per ora I did some lab work as well although apparently was done at the clinic this morning was not forwarded to us. She will be monitored closely for the next hour or so. - Re-Assessments/Exams Free Text/Narrative Re-Assessment/Exam: 11/25/16 18:10 labs are back revealing a total white count of 5.10 with 63% neutrophils and no bands hemoglobin is mildly low 11.7. MCV is 95.3. Hematocrit is 38.3. Platelets 319,000. Chemistry shows a sodium of 134 potassium 4.7 creatinine is 1.0. e GFR is 53. BNP is 868. This may be due to the workload placed on her hard from her elevated blood pressure. I will increase her Lasix from 10mg daily to 40 mg daily. I will give her an initial dose of 40 mg IV now. Her heart rate stays 54-56 on average and therefore she would not tolerate any further beta blockade. Will stick with alpha susan Prazosin 1 mg twice daily to bring her blood pressure under better control. It appears to be very labile but its lower than it was at the clinic with average of about 176 systolic. 11/25/16 18:16 patient is up to the bathroom and off the blood pressure cuff for a period of time. On recheck now it's 189/72. I'm therefore going to go ahead and give her Labetalol 10 mg IV and see what it does to her heart rate. Departure - Departure Time of Disposition: 19:19 Disposition: Home, Self-Care 01 Condition: Fair Clinical Impression: Uncontrolled hypertension Congestive heart failure (CHF) Qualifiers: Congestive heart failure type: unspecified congestive heart failure type Congestive heart failure chronicity: acute on chronic Qualified Code(s): I50.9 - Heart failure, unspecified - Discharge Information Prescriptions: Furosemide [Lasix] 40 mg PO DAILY #30 tablet Prazosin [Minpress] 1 mg PO BID #60 cap Referrals: Wilbert Bloom MD [Primary Care Provider] - Forms: ED Department Discharge Additional Instructions: Evaluation in the emergency department today in regards to uncontrolled blood pressure primarily the top number or systolic blood pressure area it appears that the blood pressures become very labile which means he goes up and down quite frequently and often it was as high as 224 and the lowest was 145. You were given medication labetalol 10 mg in the ED to help lower the blood pressure and prazosin 1 mg orally and Lasix 40 mg intravenously due to lab work identifying extra fluid within your lungs. Spencer fluid air lungs may be due to the very high systolic blood pressure causing the heart to be overloaded with work. Therefore the Lasix dosage may well need to be cut back over the next week or so. Please arrange a follow-up appoint with Dr. Tanner in one week's time for repeat pressure check up and review of labs. Stop the Lasix 10 mg once daily and replace it with the Lasix 40 mg once daily tablet. Continue all other medications as before. - My Orders Last 24 Hours: My Active Orders 11/25/16 16:48 Peripheral IV Care [RC] . DIRECTED Sodium Chloride 0.9% [Saline Flush] 10 ml FLUSH ASDIRECTED PRN Peripheral IV Insertion Adult [OM.PC] Stat - Assessment/Plan Last 24 Hours: My Active Orders 11/25/16 16:48 Peripheral IV Care [RC] . DIRECTED Sodium Chloride 0.9% [Saline Flush] 10 ml FLUSH ASDIRECTED PRN Peripheral IV Insertion Adult [OM.PC] Stat
[2016-11-25] MEDS ORDERED: Prazosin 1 MG Cap PO ONE (16:56)
[2016-11-25] MEDS ORDERED: Labetalol 100 MG/20 ML MDV IVPUSH ONE ×2 (16:57→18:16)
[2016-11-25] MEDS ORDERED: Furosemide 40 MG/4 ML VIAL IVPUSH ONE (18:14)
[2016-11-25 20:07] VITALS: BP 151/74
== END 2016-11-25 19:40 | disposition home or self-care (01) ==
LOC: JD.ED 16:32
DX: I11.0 Hypertensive heart disease with heart failure (principal); I50.9 Heart failure, unspecified; E78.00 Pure hypercholesterolemia, unspecified; E03.9 Hypothyroidism, unspecified; Z98.49 Cataract extraction status, unspecified eye; Z98.890 Other specified postprocedural states; Z79.899 Other long term (current) drug therapy; Z88.8 Allergy status to other drugs, medicaments and biological substances; Z90.49 Acquired absence of other specified parts of digestive tract
CPT/HCPCS: 36415; 80053; 83880; 85025; 96374; 96375; 99284; A9270; J1940; J7050

== ENCOUNTER 2016-11-25 22:07 | Emergency (ER) | payer MEDICARE, BC ==
[2016-11-25 22:21] VITALS: BP 111/47
[2016-11-25] MEDS ORDERED: Ondansetron 4 MG/2 ML SDV IVPUSH ONE (23:01)
[2016-11-25] MEDS ORDERED: Sodium Chloride 0.9% 500 ML IV ONE (23:01)
--- NOTE | 2016-11-25 23:25 | EDM.PDOC ---
ED HPI GENERAL MEDICAL PROBLEM - General Chief Complaint: Gastrointestinal Problem Stated Complaint: VOMITING HEADACHE Time Seen by Provider: 11/25/16 22:24 Source of Information: Reports: Patient, Family (Daughter), Old Records, RN Notes Reviewed History Limitations: Reports: No Limitations - History of Present Illness INITIAL COMMENTS - FREE TEXT/NARRATIVE: The patient underwent a laparoscopic cholecystectomy at [facility] on 11/06/2016, and, according to the patient, her blood pressure has been labile since. Her PCP, Dr. Bloom, increased her losartan last week from 50 mg daily to 100 mg daily, in addition to metoprolol 100 mg daily and furosemide 10 mg daily. The patient was seen in this ED earlier this afternoon after being sent over by Dr. Bloom. Apparently her blood pressure was in the 220s at his office, and she had a dull headache. Here in the ED, her initial blood pressure was found to be 150/62. She was given prazosin 1 mg po, furosemide 40 mg IV, and labetalol 10 mg IV. A CBC and CMP were unremarkable. A BNP was modestly elevated at 868. The patient was discharged home with a prescription to increase her Lasix from 10 mg daily to 40 mg daily, and prazosin 1 mg po BID. The patient states that she developed nausea while here in the ED, then dry heaves and emesis at home. She states that she also developed dizziness at home , that she describes as a lightheadedness that is worse if she is upright. She reports that she has been urinating frequently since she was given the IV Lasix here in the ED. The headache that she had been feeling in Dr. Bloom's office has continued. She now presents because of the emesis and lightheadedness. Her blood pressure here in the ED is 106/46 with a heart rate of 60. Headache Pain Score (Numeric/FACES): 10 - Related Data Allergies Allergy/AdvReac Type Severity Reaction Status Date / Time amlodipine Allergy Headache Verified 11/25/16 22:21 fluticasone Allergy Airway Verified 11/25/16 22:21 Tightness Home Meds: Home Meds Acetaminophen/Caffeine [Excedrin Tension Headache] 500 mg PO DAILY PRN 11/11/14 [History] Levothyroxine [Synthroid] 88 mcg PO DAILY 11/11/14 [History] Lutein/Minerals/Vit A,C & E [Ocuvite] 1 tab PO DAILY 11/11/14 [History] Metoprolol Succinate [Toprol XL 50mg] 100 mg PO DAILY 11/11/14 [History] Tetrahydrz/Dext 70/Peg 400/Pvp [Visine Advanced Eye Drop] 1 drop TOP ASDIRECTED 11/11/14 [History] Bimatoprost [Lumigan 0.03% Ophth Soln] 1 drop TOP BEDTIME 07/19/15 [History] Timolol Maleate [Timoptic 0.5% Ophth Soln] 1 drop TOP BID 07/19/15 [History] Losartan Potassium [Cozaar] 100 mg PO BEDTIME 07/21/15 [History] Acetaminophen [Tylenol Extra Strength] 500 mg PO Q6H PRN 11/04/16 [History] Ca Carbonate/Vitamin D3/Vit K [Calcium + D Soft Chewable Tab] 1 tab PO DAILY 03/04 [History] Furosemide [Lasix] 40 mg PO DAILY #30 tablet 11/25/16 [Rx] Prazosin [Minpress] 1 mg PO BID #60 cap 11/25/16 [Rx] Past Medical History HEENT History: Reports: Glaucoma, Macular Degeneration Cardiovascular History: Reports: CAD, High Cholesterol, Hypertension Gastrointestinal History: Reports: GERD 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: Musculoskeletal History: Reports: Arthritis, Fracture (finger fracture, fractured shoulder blade), Osteoporosis Neurological History: Reports: Headaches, Chronic Endocrine/Metabolic History: Reports: Hypothyroidism Oncologic (Cancer) History: Reports: Lymphoma - Past Surgical History HEENT Surgical History: Reports: Cataract Surgery, Eye Surgery (Left eye shunt) , Tonsillectomy Cardiovascular Surgical History: Reports: Coronary Artery Stent (x 1) GI Surgical History: Reports: Appendectomy, Cholecystectomy (11/06/16) Female Surgical History: Reports: Hysterectomy, Salpingo-Oophorectomy Musculoskeletal Surgical History: Reports: ORIF (bilateral femurs) Social & Family History - Family History Family Medical History: Noncontributory Cardiac: Reports: Pacemaker - Tobacco Use Smoking Status *Q: Never Smoker Second Hand Smoke Exposure: No - Caffeine Use Caffeine Use: Reports: Coffee, Soda - Alcohol Use Alcohol Use History: No - Recreational Drug Use Recreational Drug Use: No - Living Situation & Occupation Living situation: Reports: , Alone Occupation: Retired ED ROS GENERAL - Review of Systems Review Of Systems: See Below Constitutional: Reports: No Symptoms HEENT: Reports: No Symptoms Respiratory: Reports: No Symptoms Cardiovascular: Reports: No Symptoms Endocrine: Reports: No Symptoms GI/Abdominal: Reports: No Symptoms : Reports: No Symptoms Musculoskeletal: Reports: No Symptoms Skin: Reports: No Symptoms Neurological: Reports: No Symptoms Psychiatric: Reports: No Symptoms Hematologic/Lymphatic: Reports: No Symptoms Immunologic: Reports: No Symptoms ED EXAM, GENERAL - Physical Exam Exam: See Below Exam Limited By: No Limitations General Appearance: Alert, WD/WN, No Apparent Distress Eye Exam: Bilateral Eye: EOMI Ears: Normal External Exam, Hearing Grossly Normal Nose: Normal Inspection, No Blood Throat/Mouth: Normal Inspection, Normal Lips, Normal Voice, No Airway Compromise Head: Atraumatic, Normocephalic Neck: Normal Inspection, Full Range of Motion Respiratory/Chest: No Respiratory Distress, Lungs Clear, Normal Breath Sounds, No Accessory Muscle Use Cardiovascular: Normal Peripheral Pulses, Regular Rate, Rhythm, No Edema, No Gallop, No JVD, No Murmur, No Rub Peripheral Pulses: 4+: Radial (L), Radial (R) GI/Abdominal: Normal Bowel Sounds, Soft, No Organomegaly, No Distention, No Abnormal Bruit, No Mass, Other (Appropriate aurora-incisional tenderness to the 4 laparoscopic surgical wounds, which appear to be healing well.) (Female) Exam: Deferred Rectal (Female) Exam: Deferred Back Exam: Normal Inspection, Full Range of Motion, NT Extremities: Normal Inspection, Normal Range of Motion, No Pedal Edema, Normal Capillary Refill Neurological: Alert, Oriented, CN II-XII Intact, Normal Cognition, No Motor/ Sensory Deficits, Other (Generalized, non-focal weakness) Psychiatric: Normal Affect Skin Exam: Warm, Dry, Intact, Normal Color, No Rash Lymphatic: No Adenopathy Course - Vital Signs Last Recorded V/S: Last Vital Signs Temp 36.4 C 11/25/16 22:17 Pulse 62 11/25/16 22:17 Resp 16 11/25/16 22:17 BP 111/47 L 11/25/16 22:17 Pulse Ox 96 11/25/16 22:17 - Orders/Labs/Meds Meds: Medications Discontinued Medications Generic Name Dose Route Start Last Admin Trade Name Freq PRN Reason Stop Dose Admin Sodium Chloride 500 mls @ 1,000 mls/hr 11/25/16 23:01 11/25/16 23:08 Normal Saline IV 11/25/16 23:30 1,000 mls/hr .BOLUS ONE Administration Ondansetron HCl 4 mg 11/25/16 23:01 11/25/16 23:09 Zofran IVPUSH 11/25/16 23:02 4 mg ONETIME ONE Administration - Re-Assessments/Exams Free Text/Narrative Re-Assessment/Exam: 11/25/16 23:30 The patient has a documented history of chronic headaches. While the patient's blood pressure was elevated at Dr. Bloom's office, it did not meet the criterion of hypertensive urgency (>220/>120), and dropped to being only mildly elevated ( 150/62) by the time the patient was seen in this ED earlier today, yet the patient's headache persisted. Her headache, therefore, does not appear to be due to hypertensive urgency. Her nausea and lightheadedness, which developed after treatment in the ED, are most likely related to an excessive blood pressure drop (106/46). I have ordered a 500 mL bolus of normal saline and 4 mg of IV Zofran in an attempt to improve the patient's symptoms. 11/26/16 00:54 Following IV fluid and Zofran, the patient states that she is feeling much better and believes that she go home. Her current blood pressure is 119/43. I am recommending that she resume her usual blood pressure regimen, and that, if she is feeling well, that her daughter check her blood pressure 2-3 times a week , for 2-3 weeks, liang the numbers down, and present those to Dr. Bloom in follow-up. Departure - Departure Time of Disposition: 00:55 Disposition: Home, Self-Care 01 Condition: Good Clinical Impression: Hypotension due to medication, Nausea and vomiting, Lightheadedness Headache Qualifiers: Headache type: unspecified Headache chronicity pattern: acute headache Intractability: not intractable Qualified Code(s): R51 - Headache - Discharge Information Referrals: Wilbert Bloom MD [Primary Care Provider] - Forms: ED Department Discharge Additional Instructions: You were seen in the emergency room for a headache, nausea, and lightheadedness. On examination, your blood pressure was found to be low at 106/46. You were given IV fluid and anti-nausea medicine in the ER. Going forward, we recommend that you resume your usual blood pressure medication regimen. To check your blood pressure, you need to be resting quietly for at least 5, and preferably 15 minutes. You need to be feeling well, without any pain, anxiety, or illness. Under these conditions, check your blood pressure 2-3 times a week, at different times of the day, for 2-3 weeks. Write the numbers down, and present those to Dr. Bloom when you follow-up. He will then determine if any modification to your blood pressure medicines is needed. If any other problems, please do not hesitate to return to the ER.
== END 2016-11-26 01:05 | disposition home or self-care (01) ==
LOC: JD.ED 22:07
DX: I95.2 Hypotension due to drugs (principal); R51 Headache; R11.2 Nausea with vomiting, unspecified; R42 Dizziness and giddiness; I25.10 Atherosclerotic heart disease of native coronary artery without angina pectoris; I10 Essential (primary) hypertension; I11.0 Hypertensive heart disease with heart failure; I50.9 Heart failure, unspecified; E78.00 Pure hypercholesterolemia, unspecified; E03.9 Hypothyroidism, unspecified; Z98.49 Cataract extraction status, unspecified eye; Z98.890 Other specified postprocedural states; Z79.899 Other long term (current) drug therapy; Z88.8 Allergy status to other drugs, medicaments and biological substances; Z90.49 Acquired absence of other specified parts of digestive tract; Z87.19 Personal history of other diseases of the digestive system; Z85.72 Personal history of non-Hodgkin lymphomas
CPT/HCPCS: 36415; 80053; 83880; 85025; 96374; 96375; 99284; A9270; J1940; J2405; J7040; J7050

== ENCOUNTER 2017-02-25 16:50 | Emergency (ER) | payer MEDICARE, BC ==
[2017-02-25 17:09] VITALS: BP 163/71
[2017-02-25] MEDS ORDERED: Sodium Chloride 0.9% 10 ML Syringe FLUSH PRN (17:32)
[2017-02-25] MEDS ORDERED: Sodium Chloride 0.9% 500 ML IV ONE ×2 (17:33→19:18)
--- NOTE | 2017-02-25 18:26 | EDM.PDOC ---
ED HPI GENERAL MEDICAL PROBLEM - General Chief Complaint: Abdominal Pain Stated Complaint: LAB WORK WAY OFF Time Seen by Provider: 02/25/17 17:19 Source of Information: Reports: Patient, Family History Limitations: Reports: No Limitations - History of Present Illness INITIAL COMMENTS - FREE TEXT/NARRATIVE: The patient has lymphoma. She is seeing Dr Flannery oncologist at [facility] in [place]. Dr Flannery did some labs today. She called the patient and told her to come to the ER for evaluation and possible admission. She was concerned she was in renal failure. The patient has left sided abdominal pain. That is where one of the lymph nodes are. She has no fever, chills, cough, congestion, runny nose, chest pain, or shortness of breath. She had some nausea and she vomited a couple days ago. She feels better now. She has not had much of an appetite. She has no dysuria or hematuria. Onset: Gradual Duration: Day(s): Location: Reports: Abdomen Quality: Reports: Sharp Severity: Mild Improves with: Reports: None Worsens with: Reports: None Associated Symptoms: Reports: Nausea/Vomiting. Denies: Chest Pain, Cough, Fever /Chills, Headaches, Shortness of Breath Left Lower Abdomen Pain Score (Numeric/FACES): 0 Headache Pain Score (Numeric/FACES): 3 - Related Data Allergies Allergy/AdvReac Type Severity Reaction Status Date / Time fluticasone Allergy Airway Verified 02/25/17 17:04 Tightness amlodipine AdvReac Headache Verified 02/25/17 17:04 Home Meds: Home Meds Acetaminophen/Caffeine [Excedrin Tension Headache] 250 mg PO DAILY PRN 11/11/14 [History] Levothyroxine [Synthroid] 88 mcg PO DAILY 11/11/14 [History] Lutein/Minerals/Vit A,C & E [Ocuvite] 1 tab PO DAILY 11/11/14 [History] Metoprolol Succinate [Toprol XL 50mg] 50 mg PO DAILY 11/11/14 [History] Bimatoprost [Lumigan 0.03% Ophth Soln] 1 drop TOP BEDTIME 07/19/15 [History] Timolol Maleate [Timoptic 0.5% Ophth Soln] 1 drop TOP DAILY 07/19/15 [History] Losartan Potassium [Cozaar] 100 mg PO BEDTIME 07/21/15 [History] Ca Carbonate/Vitamin D3/Vit K [Calcium + D Soft Chewable Tab] 1 tab PO DAILY 03/04 [History] Bimatoprost [LUMIGAN 0.01% Ophth Soln] 1 drop EYEBOTH DAILY 02/25/17 [History] Furosemide [Lasix] 10 mg PO DAILY 02/25/17 [History] Reclast. 5 mg IV ASDIRECTED 02/25/17 [History] Past Medical History HEENT History: Reports: Glaucoma, Macular Degeneration Cardiovascular History: Reports: CAD, High Cholesterol, Hypertension Respiratory History: Reports: SOB Gastrointestinal History: Reports: GERD Genitourinary History: Reports: None [employer] INTERN History: Reports: Musculoskeletal History: Reports: Arthritis, Fracture, Osteoporosis Other Musculoskeletal History: finger fracture, fractured shoulder blade Neurological History: Reports: Headaches, Chronic Psychiatric History: Reports: None Endocrine/Metabolic History: Reports: Hypothyroidism Oncologic (Cancer) History: Reports: Lymphoma Other Oncologic History: had radiation on throat-2008 - Past Surgical History HEENT Surgical History: Reports: Cataract Surgery, Eye Surgery, Tonsillectomy Cardiovascular Surgical History: Reports: Coronary Artery Stent GI Surgical History: Reports: Appendectomy, Cholecystectomy Female Surgical History: Reports: Hysterectomy, Salpingo-Oophorectomy Musculoskeletal Surgical History: Reports: ORIF Dermatological Surgical History: Reports: None Social & Family History - Family History Family Medical History: Noncontributory Cardiac: Reports: Pacemaker - Tobacco Use Smoking Status *Q: Never Smoker Second Hand Smoke Exposure: No - Caffeine Use Caffeine Use: Reports: Coffee, Soda - Recreational Drug Use Recreational Drug Use: No - Living Situation & Occupation Living situation: Reports: , Alone Occupation: Retired ED ROS GENERAL - Review of Systems Review Of Systems: See Below Constitutional: Reports: No Symptoms HEENT: Reports: No Symptoms Respiratory: Reports: No Symptoms Cardiovascular: Reports: No Symptoms Endocrine: Reports: No Symptoms GI/Abdominal: Reports: Abdominal Pain, Anorexia, Nausea, Vomiting : Reports: No Symptoms Musculoskeletal: Reports: No Symptoms Skin: Reports: No Symptoms ED EXAM, GI/ABD - Physical Exam Exam: See Below Exam Limited By: No Limitations General Appearance: Alert, No Apparent Distress Ears: Normal External Exam Nose: Normal Inspection Head: Atraumatic, Normocephalic Neck: Normal Inspection Respiratory/Chest: No Respiratory Distress, Lungs Clear, Normal Breath Sounds Cardiovascular: Regular Rate, Rhythm, No Edema, No Murmur GI/Abdominal Exam: Soft, No Organomegaly, No Mass, Tender (Mild to moderate to the left lower abdomen) Course - Vital Signs Last Recorded V/S: Last Vital Signs Temp 98.0 F 02/25/17 17:04 Pulse 65 02/25/17 17:04 Resp 17 02/25/17 17:04 BP 163/71 H 02/25/17 17:04 Pulse Ox 97 02/25/17 17:04 - Orders/Labs/Meds Orders: Active Orders 24 hr Category Date Time Status Peripheral IV Care [RC] . DIRECTED Care 02/25/17 17:33 Active Sodium Chloride 0.9% [Saline Flush] Med 02/25/17 17:32 Active 10 ml FLUSH ASDIRECTED PRN Peripheral IV Insertion Adult [OM.PC] Routine Oth 02/25/17 17:32 Ordered Medication Orders Sodium Chloride (Saline Flush) 10 ml FLUSH ASDIRECTED PRN PRN Reason: Keep Vein Open Last Admin: 02/25/17 18:24 Dose: 10 ml Labs: Laboratory Tests 02/25/17 02/25/17 Range/Units 18:12 18:12 WBC 6.26 (3.98-10.04) K/mm3 RBC 4.38 (3.98-5.22) M/mm3 Hgb 13.0 (11.2-15.7) gm/L Hct 39.5 (34.1-44.9) % MCV 90.2 (79.4-94.8) fl MCH 29.7 (25.6-32.2) pg MCHC 32.9 (32.2-35.5) g/dl RDW Std Deviation 42.0 (36.4-46.3) fL Plt Count 313 (182-369) K/mm3 MPV 8.9 L (9.4-12.3) fl Neut % (Auto) 75.1 H (34.0-71.1) % Lymph % (Auto) 8.0 L (19.3-51.7) % Boundary % (Auto) 14.9 H (4.7-12.5) % Eos % (Auto) 1.4 (0.7-5.8) Baso % (Auto) 0.3 (0.1-1.2) % Neut # (Auto) 4.70 (1.56-6.13) K/mm3 Lymph # (Auto) 0.50 L (1.18-3.74) K/mm3 Boundary # (Auto) 0.93 H (0.24-0.36) K/mm3 Eos # (Auto) 0.09 (0.04-0.36) K/mm3 Baso # (Auto) 0.02 (0.01-0.08) K/mm3 Manual Slide Review Normal smear Sodium 132 L (136-145) mEq/L Potassium 4.3 (3.5-5.1) mEq/L Chloride 90 L (98-107) mEq/L Carbon Dioxide 30 (21-32) mEq/L Anion Gap 16.3 H (5-15) BUN 36 H (7-18) mg/dL Creatinine 1.5 H (0.55-1.02) mg/dL Est Cr Clr Drug Dosing 20.62 mL/min Estimated GFR (MDRD) 33 (>60) mL/min BUN/Creatinine Ratio 24.0 H (14-18) Glucose 87 (83-115) mg/dL Calcium 9.6 (8.5-10.1) mg/dL Total Bilirubin 0.2 (0.2-1.0) mg/dL AST 29 (15-37) U/L ALT 17 (14-59) U/L Alkaline Phosphatase 81 (46-116) U/L Total Protein 7.8 (6.4-8.2) g/dl Albumin 3.8 (3.4-5.0) g/dl Globulin 4.0 gm/dL Albumin/Globulin Ratio 1.0 (1-2) Meds: Medications Generic Name Dose Route Start Last Admin Trade Name Freq PRN Reason Stop Dose Admin Sodium Chloride 10 ml 02/25/17 17:32 02/25/17 18:24 Saline Flush FLUSH 10 ml ASDIRECTED PRN Administration Keep Vein Open Discontinued Medications Generic Name Dose Route Start Last Admin Trade Name Freq PRN Reason Stop Dose Admin Sodium Chloride 500 mls @ 1,000 mls/hr 02/25/17 17:33 02/25/17 18:20 Normal Saline IV 02/25/17 18:02 1,000 mls/hr .BOLUS ONE Administration - Re-Assessments/Exams Free Text/Narrative Re-Assessment/Exam: 02/25/17 18:28 I ordered an IV NS 500mL bolus and labs. Her labs from [facility] showed a normal CBC. Her Na was low at 129. Her K was normal at 4.7. Her BUN was elevated at 36. Her creatinine was elevated at 1.5. Her baseline creatinine appears to be 1. Her GFR was 33. I am waiting for labs we did here. 02/25/17 18:36 02/25/17 19:15 Her CBC is negative. Her Na was better at 132. Her chloride is better at 90. Her BUN was still 36 and creatinine was 1.5. She feels better after the fluid. She would like to go home if she could. I will give her the other 500ml bolus and discharge her home. Departure - Departure Time of Disposition: 19:20 Disposition: Home, Self-Care 01 Condition: Good Clinical Impression: Renal insufficiency Abdominal pain Qualifiers: Abdominal location: left lower quadrant Qualified Code(s): R10.32 - Left lower quadrant pain Lymphoma Qualifiers: Lymphoma type: unspecified type Lymphoma site: intra-abdominal nodes Qualified Code(s): C85.93 - Non-Hodgkin lymphoma, unspecified, intra-abdominal lymph nodes - Discharge Information Referrals: Wilbert Bloom MD [Primary Care Provider] - 2 Days Forms: ED Department Discharge Additional Instructions: Drink plenty of fluids. Have your blood drawn on . Please return if you are worse. - My Orders Last 24 Hours: My Active Orders 02/25/17 17:32 Sodium Chloride 0.9% [Saline Flush] 10 ml FLUSH ASDIRECTED PRN Peripheral IV Insertion Adult [OM.PC] Routine 02/25/17 17:33 Peripheral IV Care [RC] . DIRECTED - Assessment/Plan Last 24 Hours: My Active Orders 02/25/17 17:32 Sodium Chloride 0.9% [Saline Flush] 10 ml FLUSH ASDIRECTED PRN Peripheral IV Insertion Adult [OM.PC] Routine 02/25/17 17:33 Peripheral IV Care [RC] . DIRECTED
== END 2017-02-25 20:00 | disposition home or self-care (01) ==
LOC: JD.ED 16:50
DX: N28.9 Disorder of kidney and ureter, unspecified (principal); C85.93 Non-Hodgkin lymphoma, unspecified, intra-abdominal lymph nodes; I10 Essential (primary) hypertension; E78.00 Pure hypercholesterolemia, unspecified; K21.9 Gastro-esophageal reflux disease without esophagitis; M81.0 Age-related osteoporosis without current pathological fracture; E03.9 Hypothyroidism, unspecified; Z98.49 Cataract extraction status, unspecified eye; Z95.5 Presence of coronary angioplasty implant and graft; Z90.49 Acquired absence of other specified parts of digestive tract; Z90.710 Acquired absence of both cervix and uterus; Z98.890 Other specified postprocedural states; Z79.899 Other long term (current) drug therapy; Z88.8 Allergy status to other drugs, medicaments and biological substances
CPT/HCPCS: 36415; 80053; 85025; 96360; 99283; J7040; J7050; 99284

== ENCOUNTER 2017-09-29 04:28 | Inpatient (IN) | payer MEDICARE, BC ==
[2017-09-29] MEDS: fentaNYL 100 MCG/2 ML SDV IVPUSH PRN ×2 (05:37→06:49)
[2017-09-29] MEDS ORDERED: Sodium Chloride 0.9% 500 ML IV ONE (06:23)
--- NOTE | 2017-09-29 06:24 | EDM.PDOC ---
<Sanjana Velazco Miguelina - Last Filed: 09/29/17 06:19> ED HPI GENERAL MEDICAL PROBLEM - General Chief Complaint: Lower Extremity Injury/Pain Stated Complaint: [facility] Time Seen by Provider: 09/29/17 04:38 Source of Information: Reports: Patient History Limitations: Reports: No Limitations - History of Present Illness INITIAL COMMENTS - FREE TEXT/NARRATIVE: 86 y/o F presents with R hip and R foot pain s/p fall. States she felt fine yesterday. Last evening she fell asleep in a recliner. When she got up to go to bed, she fell. She's not sure why she fell. She doesn't know if she slipped. She doesn't think she passed out. She was able to get up, felt uninjured, and went to bed. Around 2AM she got up to go to the bathroom. She was using her walker. She fell backward and was unable to get up. She's not sure why she fell. Denies LOC. Denies head injury. States she had pain in her R hip and was unable to get up so called her daughter who called EMS. EMS noted her to by hypoxic with room air SpO2 of 86% so put her on O2. She is complaining primarily of R hip and R foot/ankle pain. Pain is moderate, sharp. Worse with movement, better with rest. Denies additional injury. She has chronic headaches and does have a headache. States it's currently mild. No vision changes. No focal weakness. Denies recent illness. No cough/CP/SOB/abd pain/vomiting/ diarrhea/urinary symptoms. States she feels mildly weak and dizzy all over. Right Hip Pain Score (Numeric/FACES): 6 - Related Data Allergies Allergy/AdvReac Type Severity Reaction Status Date / Time fluticasone Allergy Airway Verified 02/25/17 17:04 Tightness amlodipine AdvReac Headache Verified 02/25/17 17:04 Home Meds: Home Meds Acetaminophen/Caffeine [Excedrin Tension Headache] 250 mg PO DAILY PRN 11/11/14 [History] Levothyroxine [Synthroid] 88 mcg PO DAILY 11/11/14 [History] Lutein/Minerals/Vit A,C & E [Ocuvite] 1 tab PO DAILY 11/11/14 [History] Metoprolol Succinate [Toprol XL 50mg] 50 mg PO DAILY 11/11/14 [History] Timolol Maleate [Timoptic 0.5% Ophth Soln] 1 drop TOP DAILY 07/19/15 [History] Losartan Potassium [Cozaar] 100 mg PO BEDTIME 07/21/15 [History] Ca Carbonate/Vitamin D3/Vit K [Calcium + D Soft Chewable Tab] 1 tab PO DAILY 03/04 [History] Bimatoprost [LUMIGAN 0.01% Ophth Soln] 1 drop EYEBOTH DAILY 02/25/17 [History] Furosemide [Lasix] 10 mg PO DAILY 02/25/17 [History] Aspirin/Acetaminophen/Caffeine [Migraine Formula Caplet] 1 each PO ONETIME PRN 09/29/17 [History] Furosemide [Lasix] 20 mg PO DAILY 09/29/17 [History] Past Medical History HEENT History: Reports: Glaucoma, Macular Degeneration Cardiovascular History: Reports: CAD, High Cholesterol, Hypertension Respiratory History: Reports: SOB Gastrointestinal History: Reports: GERD Genitourinary History: Reports: None [employer] History: Reports: Musculoskeletal History: Reports: Arthritis, Fracture, Osteoporosis Other Musculoskeletal History: finger fracture, fractured shoulder blade Neurological History: Reports: Headaches, Chronic Psychiatric History: Reports: None Endocrine/Metabolic History: Reports: Hypothyroidism Oncologic (Cancer) History: Reports: Lymphoma Other Oncologic History: had radiation on throat-2008 - Past Surgical History HEENT Surgical History: Reports: Cataract Surgery, Eye Surgery, Tonsillectomy Cardiovascular Surgical History: Reports: Coronary Artery Stent GI Surgical History: Reports: Appendectomy, Cholecystectomy Female Surgical History: Reports: Hysterectomy, Salpingo-Oophorectomy Musculoskeletal Surgical History: Reports: ORIF Dermatological Surgical History: Reports: None Social & Family History - Family History Family Medical History: Noncontributory Cardiac: Reports: Pacemaker - Tobacco Use Smoking Status *Q: Never Smoker - Caffeine Use Caffeine Use: Reports: Coffee, Soda - Recreational Drug Use Recreational Drug Use: No - Living Situation & Occupation Living situation: Reports: , Alone Occupation: Retired Review of Systems - Review of Systems Review Of Systems: See Below Constitutional: Reports: Weakness. Denies: Fever Eyes: Denies: Vision Change Ears: Reports: No Symptoms Nose: Reports: No Symptoms Mouth/Throat: Reports: No Symptoms Respiratory: Denies: Shortness of Breath, Cough Cardiovascular: Denies: Chest Pain GI/Abdominal: Denies: Abdominal Pain, Diarrhea Genitourinary: Denies: Dysuria Musculoskeletal: Reports: Leg Pain, Foot Pain. Denies: Neck Pain, Arm Pain, Back Pain Skin: Reports: No Symptoms. Denies: Wound Neurological: Reports: Dizziness, Headache Psychiatric: Reports: No Symptoms ED EXAM, GENERAL - Physical Exam Exam: See Below Exam Limited By: No Limitations General Appearance: Alert, WD/WN, No Apparent Distress Eye Exam: Bilateral Eye: EOMI, Normal Inspection, PERRL Ears: Normal External Exam Nose: Normal Inspection, No Blood Throat/Mouth: Normal Inspection, Normal Oropharynx, Normal Voice, No Airway Compromise Head: Atraumatic, Normocephalic Neck: Normal Inspection, Supple, Non-Tender, Full Range of Motion Respiratory/Chest: No Respiratory Distress, Lungs Clear, Normal Breath Sounds, No Accessory Muscle Use, Chest Non-Tender Cardiovascular: Normal Peripheral Pulses, Regular Rate, Rhythm, No Edema, No Murmur GI/Abdominal: Soft, Non-Tender, No Distention. No: Rebound Back Exam: Normal Inspection, Vertebral Tenderness (mid thoracic, and diffuse L spine, no step-offs or deformities, skin intact throughout ). No: CVA Tenderness (L), CVA Tenderness (R) Extremities: Other (RLE: mild R hip TTP, full ROM, no deformity. No femur TTP. No knee effusion or TTP. No tib/fib deformtiy or TTP. +R lateral midfoot TTP/ swelling/ecchymosis. Mild R lateral ankle TTP. Full ROM at the ankle. Distal motor/sensation/perfusion intact. Remaining extremities uninjured. ) Neurological: Alert, Oriented, CN II-XII Intact, Normal Cognition, No Motor/ Sensory Deficits Psychiatric: Normal Affect, Normal Mood Skin Exam: Warm, Dry, Intact, Normal Color, No Rash Course - Vital Signs Last Recorded V/S: Last Vital Signs Temp 98.9 F 09/29/17 04:32 Pulse 75 09/29/17 07:29 Resp 19 09/29/17 07:29 BP 137/53 L 09/29/17 07:29 Pulse Ox 96 09/29/17 07:29 - Orders/Labs/Meds Orders: Active Orders 24 hr Category Date Time Status EKG 12 Lead [EKG Documentation Completion] [RC] STAT Care 09/29/17 04:39 Active CULTURE URINE [RM] Stat Lab 09/29/17 04:54 Received UA W/MICROSCOPIC [URIN] Stat Lab 09/29/17 06:48 Ordered Sodium Chloride 0.9% [Normal Saline] 250 ml Med 09/29/17 07:00 Active IV ASDIRECTED Sodium Chloride 0.9% [Saline Flush] Med 09/29/17 06:48 Active 10 ml FLUSH ONETIME PRN cefTRIAXone [Rocephin] 2 gm Med 09/29/17 08:30 Active Sodium Chloride 0.9% [Normal Saline] 100 ml IV ONETIME fentaNYL [Sublimaze] Med 09/29/17 05:02 Active 25 mcg IVPUSH Q2H PRN DME for Discharge [COMM] Stat Oth 09/29/17 06:15 Ordered Medication Orders Fentanyl (Sublimaze) 25 mcg IVPUSH Q2H PRN PRN Reason: Pain Last Admin: 09/29/17 06:49 Dose: 25 mcg Admin: 09/29/17 05:37 Dose: 25 mcg Sodium Chloride (Normal Saline) 250 mls @ 80 mls/hr IV ASDIRECTED SOLNAGE Last Admin: 09/29/17 07:11 Dose: 80 mls/hr Ceftriaxone Sodium 2 gm/ (Sodium Chloride) 100 mls @ 100 mls/hr IV ONETIME ONE Stop: 09/29/17 09:29 Sodium Chloride (Saline Flush) 10 ml FLUSH ONETIME PRN PRN Reason: IV FLUSH Last Admin: 09/29/17 07:11 Dose: 10 ml Admin: 09/29/17 06:50 Dose: 10 ml Labs: Laboratory Tests 09/29/17 09/29/17 09/29/17 Range/Units 05:50 05:50 05:50 WBC 13.86 H (3.98-10.04) K/mm3 RBC 3.68 L (3.98-5.22) M/mm3 Hgb 11.1 L (11.2-15.7) gm/L Hct 34.6 (34.1-44.9) % MCV 94.0 (79.4-94.8) fl MCH 30.2 (25.6-32.2) pg MCHC 32.1 L (32.2-35.5) g/dl RDW Std Deviation 43.3 (36.4-46.3) fL Plt Count 158 L (182-369) K/mm3 MPV 9.3 L (9.4-12.3) fl Neut % (Auto) 88.9 H (34.0-71.1) % Lymph % (Auto) 2.6 L (19.3-51.7) % Peach % (Auto) 8.0 (4.7-12.5) % Eos % (Auto) 0.2 L (0.7-5.8) Baso % (Auto) 0.1 (0.1-1.2) % Neut # (Auto) 12.32 H (1.56-6.13) K/mm3 Lymph # (Auto) 0.36 L (1.18-3.74) K/mm3 Peach # (Auto) 1.11 H (0.24-0.36) K/mm3 Eos # (Auto) 0.03 L (0.04-0.36) K/mm3 Baso # (Auto) 0.01 (0.01-0.08) K/mm3 Manual Slide Review Abnormal smear PT 11.9 (9.5-12.1) SECONDS INR 1.09 Sodium 137 (136-145) mEq/L Potassium 4.0 (3.5-5.1) mEq/L Chloride 102 (98-107) mEq/L Carbon Dioxide 29 (21-32) mEq/L Anion Gap 10.0 (5-15) BUN 39 H (7-18) mg/dL Creatinine 1.3 H (0.55-1.02) mg/dL Est Cr Clr Drug Dosing 24.92 mL/min Estimated GFR (MDRD) 39 (>60) mL/min BUN/Creatinine Ratio 30.0 H (14-18) Glucose 118 H (83-115) mg/dL Calcium 9.4 (8.5-10.1) mg/dL Magnesium 1.7 L (1.8-2.4) mg/dl Total Bilirubin 0.6 (0.2-1.0) mg/dL AST 39 H (15-37) U/L ALT 29 (14-59) U/L Alkaline Phosphatase 62 (46-116) U/L Troponin I < 0.017 (0.00-0.056) ng/mL NT-Pro-B Natriuret Pep (0-450) pg/mL Total Protein 6.4 (6.4-8.2) g/dl Albumin 3.4 (3.4-5.0) g/dl Globulin 3.0 gm/dL Albumin/Globulin Ratio 1.1 (1-2) Urine Color (Yellow) Urine Appearance (Clear) Urine pH (5.0-8.0) Ur Specific [place] (1.005-1.030) Urine Protein (Negative) Urine Glucose (UA) (Negative) Urine Ketones (Negative) Urine Occult Blood (Negative) Urine Nitrite (Negative) Urine Bilirubin (Negative) Urine Urobilinogen (0.2-1.0) Ur Leukocyte Esterase (Negative) Urine RBC (0-5) /hpf Urine WBC (0-5) /hpf Ur Epithelial Cells (0-5) /hpf Urine Bacteria (FEW) /hpf Urine Mucus (FEW) /hpf Blood Type Gel Antibody Screen 09/29/17 09/29/17 09/29/17 Range/Units 05:50 05:50 06:48 WBC (3.98-10.04) K/mm3 RBC (3.98-5.22) M/mm3 Hgb (11.2-15.7) gm/L Hct (34.1-44.9) % MCV (79.4-94.8) fl MCH (25.6-32.2) pg MCHC (32.2-35.5) g/dl RDW Std Deviation (36.4-46.3) fL Plt Count (182-369) K/mm3 MPV (9.4-12.3) fl Neut % (Auto) (34.0-71.1) % Lymph % (Auto) (19.3-51.7) % Peach % (Auto) (4.7-12.5) % Eos % (Auto) (0.7-5.8) Baso % (Auto) (0.1-1.2) % Neut # (Auto) (1.56-6.13) K/mm3 Lymph # (Auto) (1.18-3.74) K/mm3 Peach # (Auto) (0.24-0.36) K/mm3 Eos # (Auto) (0.04-0.36) K/mm3 Baso # (Auto) (0.01-0.08) K/mm3 Manual Slide Review PT (9.5-12.1) SECONDS INR Sodium (136-145) mEq/L Potassium (3.5-5.1) mEq/L Chloride (98-107) mEq/L Carbon Dioxide (21-32) mEq/L Anion Gap (5-15) BUN (7-18) mg/dL Creatinine (0.55-1.02) mg/dL Est Cr Clr Drug Dosing mL/min Estimated GFR (MDRD) (>60) mL/min BUN/Creatinine Ratio (14-18) Glucose (83-115) mg/dL Calcium (8.5-10.1) mg/dL Magnesium (1.8-2.4) mg/dl Total Bilirubin (0.2-1.0) mg/dL AST (15-37) U/L ALT (14-59) U/L Alkaline Phosphatase (46-116) U/L Troponin I (0.00-0.056) ng/mL NT-Pro-B Natriuret Pep 696 H (0-450) pg/mL Total Protein (6.4-8.2) g/dl Albumin (3.4-5.0) g/dl Globulin gm/dL Albumin/Globulin Ratio (1-2) Urine Color Yellow (Yellow) Urine Appearance Clear (Clear) Urine pH 6.0 (5.0-8.0) Ur Specific [place] 1.025 (1.005-1.030) Urine Protein 1+ H (Negative) Urine Glucose (UA) Negative (Negative) Urine Ketones Negative (Negative) Urine Occult Blood Trace-lysed H (Negative) Urine Nitrite Positive H (Negative) Urine Bilirubin Negative (Negative) Urine Urobilinogen 0.2 (0.2-1.0) Ur Leukocyte Esterase Negative (Negative) Urine RBC 0-5 (0-5) /hpf Urine WBC 0-5 (0-5) /hpf Ur Epithelial Cells 0-5 (0-5) /hpf Urine Bacteria Moderate H (FEW) /hpf Urine Mucus Few (FEW) /hpf Blood Type O NEGATIVE Gel Antibody Screen Negative Meds: Medications Generic Name Dose Route Start Last Admin Trade Name Freq PRN Reason Stop Dose Admin Fentanyl 25 mcg 09/29/17 05:02 09/29/17 06:49 Sublimaze IVPUSH 25 mcg Q2H PRN Administration Pain Sodium Chloride 250 mls @ 80 mls/hr 09/29/17 07:00 09/29/17 07:11 Normal Saline IV 80 mls/hr ASDIRECTED SOLANGE Administration Ceftriaxone Sodium 2 gm/ 100 mls @ 100 mls/hr 09/29/17 08:30 Sodium Chloride IV 09/29/17 09:29 ONETIME ONE Sodium Chloride 10 ml 09/29/17 06:48 09/29/17 07:11 Saline Flush FLUSH 10 ml ONETIME PRN Administration IV FLUSH Discontinued Medications Generic Name Dose Route Start Last Admin Trade Name Freq PRN Reason Stop Dose Admin Sodium Chloride 500 mls @ 1,000 mls/hr 09/29/17 06:23 09/29/17 06:43 Normal Saline IV 09/29/17 06:52 1,000 mls/hr ONETIME ONE Administration Iopamidol 100 ml 09/29/17 06:48 09/29/17 07:09 [id number] (76%) IVPUSH 09/29/17 06:49 100 ml ONETIME ONE Administration - Re-Assessments/Exams Free Text/Narrative Re-Assessment/Exam: 09/29/17 06:25 CXR shows mild cardiac silhouette, normal mediastinum, no ptx, bilat nodularity particularly in the upper lobes which appears increased compared to prior. Thoracic and L spine XR's show degenerative disk disease but no acute fracture. R foot XR shows non-displaced R base of the 5th metatarsal fracture. No additional fracture of the foot or ankle. Pelvis XR shows R obturator ring fracture, displaced. Given pelvic fracture and hypoxia, I ordered a CT scan of her chest/abdomen/pelvis. Labs are pending. Departure - Departure Disposition: Admitted As Inpatient 67 Clinical Impression: Hypoxia Fall Qualifiers: Encounter type: initial encounter Qualified Code(s): W19.XXXA - Unspecified fall, initial encounter Pelvic fracture Qualifiers: Encounter type: initial encounter Pelvic bone location: pubis Sublocation of pubis: unspecified portion of pubis Fracture type: closed Laterality: right Qualified Code(s): S32.501A - Unspecified fracture of right pubis, initial encounter for closed fracture Foot fracture, right Qualifiers: Encounter type: initial encounter Fracture type: closed Qualified Code(s): S92.901A - Unspecified fracture of right foot, initial encounter for closed fracture UTI (urinary tract infection) Qualifiers: Urinary tract infection type: site unspecified Hematuria presence: without hematuria Qualified Code(s): N39.0 - Urinary tract infection, site not specified - Discharge Information Referrals: Wilbert Bloom MD [Primary Care Provider] - Forms: ED Department Discharge - My Orders Last 24 Hours: My Active Orders 09/29/17 04:54 CULTURE URINE [RM] Stat 09/29/17 08:30 cefTRIAXone [Rocephin] 2 gm Sodium Chloride 0.9% [Normal Saline] 100 ml IV ONETIME - Assessment/Plan Last 24 Hours: My Active Orders 09/29/17 04:54 CULTURE URINE [RM] Stat 09/29/17 08:30 cefTRIAXone [Rocephin] 2 gm Sodium Chloride 0.9% [Normal Saline] 100 ml IV ONETIME <Donnell Chua - Last Filed: 09/29/17 09:24> Course - Re-Assessments/Exams Free Text/Narrative Re-Assessment/Exam: 09/29/17 08:[address] Velazco. The patient's WBC was elevated at 13.86. Her Hgb was 11.1. Her platelets were 158. Her creatinine was elevated at 1.3. Her glucose was 118. Her BNP was elevated at 696. Her troponin was negative. Her UA was positive for nitrites and had moderate bacteria. There were no WBCs. I will culture her urine and give her a dose of rocephin 2 grams IV. Her foot and ankle x-ray as read by Dr Robbins shows nondisplaced fracture within the proximal 5th metatarsal. Small cortical avulsion fracture off the dorsal navicular bone which may be acute. Her thoracic spine x-ray shows stable compression deformities of T8 and T11 when compared to prior chest CT. The x- ray of her pelvis and right hip shows fractures within the inferior and superior pubic ramus to the right of the pubic symphysis. No callus is seen and this may possibly be acute. The CT of her head shows senescent change, small opacity within the anterior left globe and difficult to exclude foreign body. Please correlate as this should be evident by physical exam if a real thing. (I talked to the patient and this is a shunt.) Nothing acute intracranial abnormality is seen. No acute skull abnormality is seen. The CT of her chest shows nodules within the chest which appear fairly stable from previous exam. Cardiomegaly and other incidental findings. The CT of the abdomen and pelvis shows right sided pubic rami fractures which appear to be acute. Small amount of free fluid which has simple Hounsfield unit measurement and is likely incidental. Other findings which are felt to be incidental as described above. I called Dr Barr and he says these injuries are nonsurgical. He recommended a walking boot when she is up. She needs pain control and PT for the pelvis fracture. I am not sure at this time why she was hypoxic. I will keep her on the oxygen. I feel she needs to be admitted. 09/29/17 09:[address] Vargas and he will come see the patient. Departure - Departure Time of Disposition: 09:25 Condition: Fair
[2017-09-29] MEDS ORDERED: Iopamidol 755 Mg/ML 100 ML Bottle IVPUSH ONE (06:48)
[2017-09-29] MEDS: Sodium Chloride 0.9% 10 ML Syringe FLUSH PRN ×2 (06:50→07:11)
[2017-09-29] MEDS ORDERED: Sodium Chloride 0.9% 250 ML IV SCH (07:00)
--- NOTE | 2017-09-29 07:08 | CR ---
Pelvis and right hip: AP view of the pelvis was obtained as well as frog leg lateral view of the right hip. Intramedullary emmanuel identified within both femurs. Fractures are noted within the inferior and superior pubic ramus to the right of the pubic symphysis. Sacroiliac joints are unremarkable. Vascular calcification is noted. Nothing acute is appreciated. Impression: 1. Fractures within the inferior and superior pubic ramus to the right of the pubic symphysis. No callus is seen and this may possibly be acute. Please correlate with the patient's symptoms. 2. Other incidental findings. Diagnostic code #3
--- NOTE | 2017-09-29 07:52 | CT ---
CT chest Technique: Multiple axial sections through the chest were obtained. Intravenous contrast was utilized. Comparison: Prior chest CT study of 11/04/16. Findings: 2 slightly spiculated nodules noted within the right upper lung as well as additional nodule within the left upper lung. Smaller nodules are also seen in a subpleural location within the left upper lung. These appear stable from prior CT exam. Lungs show no acute parenchymal change. No pleural effusions or pneumothorax is seen. Opacified great vessels are within normal limits. Coronary artery calcification is seen. Heart is enlarged. No pericardial effusion is seen. Bone window settings were reviewed which shows degenerative change scattered within the spine. No acute rib fracture is identified. Compression deformities are seen within the thoracic spine which appear stable. Impression: 1. Nodules within the chest which appear fairly stable from previous exam. 2. Cardiomegaly and other incidental findings. 3. Nothing acute is seen on CT study of the chest. Diagnostic code #2 CT abdomen and pelvis Technique: Multiple axial sections were obtained from above the dome of the diaphragm inferiorly through the pubic symphysis. Intravenous contrast was utilized. No oral contrast has been given. Delayed images were obtained through the bladder. Comparison: Prior CT abdomen and pelvis exam of 11/04/16. Findings: Intrahepatic and extrahepatic biliary duct dilatation is seen which is stable from prior exam. This is likely residual from prior cholecystectomy. Liver is otherwise unremarkable. Spleen appears within normal limits. Small nodule is noted within the left adrenal gland measuring 1.1 cm which appears to be stable. Right adrenal gland is unremarkable. Pancreas shows no discrete abnormality. Kidneys show symmetric contrast enhancement. Several small cortical cysts are seen within the right kidney. Aorta shows diffuse atherosclerotic change without aneurysm. 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 Diffuse diverticulosis seen within the sigmoid colon as well as within the descending colon. Small amount of free fluid is seen within the pelvis which does not have Hounsfield unit measurements of blood. Rene catheter seen within the bladder. Fractures are seen within the inferior and superior pubic ramus on the right side. Inferior pubic ramus fracture is seen in 2 locations. Fracture shows some comminution. Fractures are felt to be acute. Degenerative change is noted within the spine. No other acute osseous abnormality is appreciated on bone window settings. Impression: 1. Right-sided pubic rami fractures which appear to be acute. 2. Small amount of free fluid which has simple Hounsfield unit measurement and is likely incidental. 3. Other findings which are felt to be incidental as described above. Diagnostic code #3
--- NOTE | 2017-09-29 07:52 | CT ---
Head CT Technique: Multiple axial sections through the brain were obtained. Comparison: Previous head CT study of 07/19/15. Findings: Ventricles along with basal cisterns and sulci over the convexities are mildly prominent. Diminished density is noted within portions of the basal ganglia, periventricular and subcortical white matter compatible with small vessel ischemic demyelination change. 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 No evidence of intracranial hemorrhage. No midline shift or mass effect is seen. Atherosclerotic calcification is noted within the vertebral vessels and within the carotid siphon. Bone window settings shows no acute calvarial abnormality. Small opacity is seen within the anterior left globe and difficult to exclude foreign body. Impression: 1. Senescent change. 2. Small opacity within the anterior left globe and difficult to exclude foreign body. Please correlate as this should be evident by physical exam if a real finding. 3. Nothing acute intracranial abnormality is seen. No acute skull abnormality is seen. Diagnostic code #3
--- NOTE | 2017-09-29 07:57 | CR ---
Lumbar spine: AP and lateral views of the lumbar spine were obtained. Comparison: No prior lumbar spine imaging. Diffuse posterior disc space narrowing is noted from L2-L3 through L5-S1. Minimal spondylolisthesis is noted L4-L5 compatible with degenerative apophyseal change. Vertebral body heights are maintained. Bony structures are osteopenic. Pedicles as well as visualized transverse and spinous processes are intact. No acute fracture or subluxation is seen. Surgical clips are seen from prior cholecystectomy. Mild vascular calcification is seen. Impression: 1. Degenerative change as noted above. 2. Other incidental findings. Nothing acute is definitely seen. Diagnostic code #2
--- NOTE | 2017-09-29 07:57 | CR ---
Right ankle: Four views of the right ankle were obtained. Comparison: No prior ankle exam. Soft tissue swelling is noted. Vascular calcification is seen. Fracture is identified within the base of the fifth metatarsal. Ankle mortise is symmetric. Minimal cortical fracture is identified off the dorsal navicular bone which may be acute. Impression: 1. Nondisplaced fracture within the proximal fifth metatarsal. 2. Small cortical avulsion fracture off the dorsal navicular bone which may be acute. 3. Other incidental findings. Diagnostic code #3
--- NOTE | 2017-09-29 07:57 | CR ---
Chest: Frontal view of the chest was obtained. Comparison: Prior chest x-ray of 11/04/16. Heart is enlarged. Tortuous thoracic aorta is seen. Stable apical pleural thickening is seen. No acute parenchymal change is seen within either lung. Scoliosis is noted within the spine. Bony structures are osteopenic. Impression: 1. Stable findings as noted above. Nothing acute is appreciated. Diagnostic code #2
--- NOTE | 2017-09-29 07:57 | CR ---
Thoracic spine: AP and lateral views of the thoracic spine were obtained. Comparison: No prior thoracic spine exam. Compression deformity is seen within T8 which appears stable from prior CT chest of 11/04/16. Mild compression deformity is also noted within T11 which appears stable. Scattered disc space narrowing is noted within the thoracic spine. Kyphoscoliosis is noted. Bony structures are osteopenic. Nothing acute is appreciated. Impression: 1. Stable compression deformities of T8 and T11 when compared to prior chest CT. 2. Degenerative change and other incidental findings. 3. Nothing acute is appreciated. Diagnostic code #3
--- NOTE | 2017-09-29 07:58 | CR ---
Right foot: Three views of the right foot were obtained. Comparison: No prior foot exam. Nondisplaced fracture is identified within the base of the fifth metatarsal. Mild bunion deformity is noted. Vascular calcification is seen. Small avulsion fracture is again noted off the dorsal navicular bone. Impression: 1. Nondisplaced fracture within the base of the fifth metatarsal. Small navicular avulsion fracture. 2. Other incidental findings. Diagnostic code #3
[2017-09-29] MEDS ORDERED: cefTRIAXone 2 GM in Sodium Chloride 0.9% 100 ML IV ONE (08:30)
[2017-09-29] MEDS ORDERED: fentaNYL 100 MCG/2 ML SDV IVPUSH ONE (10:08)
[2017-09-29] MEDS ORDERED: ACETAMINOPHEN PO PRN ×2 (10:49)
[2017-09-29] MEDS ORDERED: [UNRECOGNIZED DRUG - OTHER] PO PRN (10:49)
[2017-09-29] MEDS ORDERED: ASPIRIN PO PRN (10:49)
[2017-09-29] MEDS ORDERED: CAFFEINE PO PRN ×2 (10:49)
--- NOTE | 2017-09-29 11:40 | PCM.HP ---
H&P History of Present Illness - General Date of Service: 09/29/17 Admit Problem/Dx: Admission Diagnosis/Problem Admission Diagnosis/Problem Hypoxia Source of Information: Patient, Family, Old Records, Provider, RN Notes Reviewed History Limitations: Reports: Physical Impairment - History of Present Illness Initial Comments - Free Text/Narative: This is an 86 yo elderly white female with past medical hx/o Glaucoma/Macular Degeneration, CAD, HTN, HLD, SOB-Intermittent, Hypothyroidism, GERD, OA, Osteoporosis, Hx/o Finger Fx, Hx/o Shoulder Blade Fx, Headache, and Lymphoma not longer on chemo therapy who comes in for evaluation of right hip and foot pain. Patient reports 2 episode of falls; 1 last evening and the other was about early this morning on her way to the bathroom. She denies any prodromal syndromes but she fell and landed on her side. She denies losing consciousness, no bladder or bowel incontinence. After she fell, she reports pain in her hip and was unable to get up so she called her daughter and subsequently EMS was called for help.When EMS arrived to her home, she was found hypoxemic with an O2 sat of 86%. Her initial workup in emergency department shows a CBC remarkable for WBC of 13.6, RBC of 3.68, hemoglobin of 11.1, MCHC of 32.1, platelet of 158, MPV of 9.3 , neutrophils of 88.9%, lymphocytes of 2.6%, and eosinophils of 0.2%. Her chemistry is remarkable for BUN of 39, creatinine of 1.3, glucose of 118, magnesium of 1.7, AST of 39, proBNP of 6.6, and TSH of 4.469. Her initial troponin is less than 0.017. Her UA is not quite impressive for UTI but positive for nitrite and moderate amount of urine bacteria. Her CXR shows no acute abnormal findings. Thoracic spine x-ray report reads stable compression deformities of T8 and 11. Nothing acute is appreciated. Lumbar spine x-ray report reads nothing acute is appreciated. Hip x-ray report reads fractures within the inferior and superior pubic ramus to the right of the pubic symphysis. Non-displaced fracture within the base of the fifth metatarsal. Small navicular avulsion fracture. Ankle x-ray report reads non- displaced fracture within the proximal 5th metatarsal. Small cortical fracture off the dorsal navicular bone which may be acute. Chest and abdomen CT scan report reads nodules within the chest which appear fairly stable from previous scan. Cardiomegaly. Nothing acute is appreciated. Head CT scan report reads senescent change. Small opacity within the anterior left lobe and difficult to exclude foreign body. Nothing acute intra-cranial abnormalities seen. No acute skull abnormalities seen. Patient is being admitted for acute pelvic fracture and right proximal 5th metatarsal fracture. She is DNR/DNI. Right Hip Pain Score (Numeric/FACES): 6 - Related Data Allergies/Adverse Reactions: Allergies Allergy/AdvReac Type Severity Reaction Status Date / Time fluticasone Allergy Airway Verified 09/29/17 12:32 Tightness amlodipine AdvReac Headache Verified 09/29/17 12:32 Home Medications: Home Meds Levothyroxine [Synthroid] 88 mcg PO DAILY 11/11/14 [History] Lutein/Minerals/Vit A,C & E [Ocuvite] 1 tab PO DAILY 11/11/14 [History] Metoprolol Succinate [Toprol XL 50mg] 50 mg PO DAILY 11/11/14 [History] Timolol Maleate [Timoptic 0.5% Ophth Soln] 1 drop EYERT DAILY 07/19/15 [History] Losartan Potassium [Cozaar] 100 mg PO BEDTIME 07/21/15 [History] Ca Carbonate/Vitamin D3/Vit K [Calcium + D Soft Chewable Tab] 1 tab PO DAILY 03/04 [History] Bimatoprost [LUMIGAN 0.01% Ophth Soln] 1 drop EYEBOTH DAILY 02/25/17 [History] Aspirin/Acetaminophen/Caffeine [Migraine Formula Caplet] 1 tab PO Q6H PRN [History] Furosemide [Lasix] 20 mg PO DAILY 09/29/17 [History] Tetrahydrozoline HCl [Visine] 1 drop EYEBOTH ASDIRECTED PRN 09/29/17 [History] Past Medical History HEENT History: Reports: Glaucoma, Macular Degeneration Cardiovascular History: Reports: CAD, High Cholesterol, Hypertension Respiratory History: Reports: SOB Gastrointestinal History: Reports: GERD Genitourinary History: Reports: None SHIPPING AND RECEIVING History: Reports: Musculoskeletal History: Reports: Arthritis, Fracture, Osteoporosis Other Musculoskeletal History: finger fracture, fractured shoulder blade Neurological History: Reports: Headaches, Chronic Psychiatric History: Reports: None Endocrine/Metabolic History: Reports: Hypothyroidism Oncologic (Cancer) History: Reports: Lymphoma Other Oncologic History: had radiation on throat-2009 - Past Surgical History HEENT Surgical History: Reports: Cataract Surgery, Eye Surgery, Tonsillectomy Cardiovascular Surgical History: Reports: Coronary Artery Stent GI Surgical History: Reports: Appendectomy, Cholecystectomy Female Surgical History: Reports: Hysterectomy, Salpingo-Oophorectomy Musculoskeletal Surgical History: Reports: ORIF Dermatological Surgical History: Reports: None Social & Family History - Family History Family Medical History: Noncontributory Cardiac: Reports: Pacemaker - Tobacco Use Smoking Status *Q: Never Smoker - Caffeine Use Caffeine Use: Reports: Coffee, Soda - Recreational Drug Use Recreational Drug Use: No - Living Situation & Occupation Living situation: Reports: , Alone Occupation: Retired H&P Review of Systems - Review of Systems: Review Of Systems: See Below General: Reports: Weakness. Denies: Fever, Chills, Malaise, Fatigue, Decreased Appetite HEENT: Reports: No Symptoms Pulmonary: Reports: Shortness of Breath (on and off) Cardiovascular: Denies: Chest Pain, Palpitations, Dyspnea on Exertion, Edema, Lightheadedness, Syncope, Claudication Gastrointestinal: Denies: Abdominal Pain, Nausea, Vomiting Genitourinary: Reports: No Symptoms Musculoskeletal: Reports: Leg Pain, Foot Pain Skin: Denies: Cyanosis, Jaundice, Mottled, Pallor, Diaphoresis, Pruritis, Erythema, Lesions Psychiatric: Denies: Confusion, Depression, Mood Lability Neurological: Reports: Difficulty Walking, Weakness, Gait Disturbance. Denies: Confusion Hematologic/Lymphatic: Reports: No Symptoms Immunologic: Reports: No Symptoms Exam - Exam Exam: See Below - Vital Signs Vital Signs: Last Vital Signs Temp 37.2 C 09/29/17 04:32 Pulse 75 09/29/17 07:29 Resp 19 09/29/17 07:29 BP 137/53 L 09/29/17 07:29 Pulse Ox 96 09/29/17 07:29 Weight: 49.895 kg - Exam General: Alert, Oriented, Cooperative HEENT: Conjunctiva Clear, EACs Clear, EOMI, Hearing Intact, Mucosa Moist & [place] , Nares Patent, Normal Nasal Septum, Posterior Pharynx Clear, Pupils Equal, Pupils Reactive Neck: Supple, Trachea Midline, +2 Carotid Pulse wo Bruit Lungs: Clear to Auscultation, Normal Respiratory Effort Cardiovascular: Regular Rate, Regular Rhythm GI/Abdominal Exam: Normal Bowel Sounds, Soft, Non-Tender, No Organomegaly, No Distention, No Abnormal Bruit, No Mass. No: Pelvis Stable (Female) Exam: Deferred Rectal (Female) Exam: Deferred Back Exam: Normal Inspection, Decreased Range of Motion Extremities: Normal Inspection, Normal Range of Motion, Non-Tender, No Pedal Edema, Normal Capillary Refill Peripheral Pulses: 2+: Posterior Tibial (L), Posterior Tibial (R), Dorsalis Pedis (L), Dorsalis Pedis (R) - Patient Data Lab Results Last 24 hrs: Laboratory Results - last 24 hr 09/29/17 09/29/17 09/29/17 Range/Units 05:50 05:50 05:50 WBC 13.86 H (3.98-10.04) K/mm3 RBC 3.68 L (3.98-5.22) M/mm3 Hgb 11.1 L (11.2-15.7) gm/L Hct 34.6 (34.1-44.9) % MCV 94.0 (79.4-94.8) fl MCH 30.2 (25.6-32.2) pg MCHC 32.1 L (32.2-35.5) g/dl RDW Std Deviation 43.3 (36.4-46.3) fL Plt Count 158 L (182-369) K/mm3 MPV 9.3 L (9.4-12.3) fl Neut % (Auto) 88.9 H (34.0-71.1) % Lymph % (Auto) 2.6 L (19.3-51.7) % [place] % (Auto) 8.0 (4.7-12.5) % Eos % (Auto) 0.2 L (0.7-5.8) Baso % (Auto) 0.1 (0.1-1.2) % Neut # (Auto) 12.32 H (1.56-6.13) K/mm3 Lymph # (Auto) 0.36 L (1.18-3.74) K/mm3 [place] # (Auto) 1.11 H (0.24-0.36) K/mm3 Eos # (Auto) 0.03 L (0.04-0.36) K/mm3 Baso # (Auto) 0.01 (0.01-0.08) K/mm3 Manual Slide Review Abnormal smear PT 11.9 (9.5-12.1) SECONDS INR 1.09 Sodium 137 (136-145) mEq/L Potassium 4.0 (3.5-5.1) mEq/L Chloride 102 (98-107) mEq/L Carbon Dioxide 29 (21-32) mEq/L Anion Gap 10.0 (5-15) BUN 39 H (7-18) mg/dL Creatinine 1.3 H (0.55-1.02) mg/dL Est Cr Clr Drug Dosing 24.92 mL/min Estimated GFR (MDRD) 39 (>60) mL/min BUN/Creatinine Ratio 30.0 H (14-18) Glucose 118 H (83-115) mg/dL Calcium 9.4 (8.5-10.1) mg/dL Magnesium 1.7 L (1.8-2.4) mg/dl Total Bilirubin 0.6 (0.2-1.0) mg/dL AST 39 H (15-37) U/L ALT 29 (14-59) U/L Alkaline Phosphatase 62 (46-116) U/L Troponin I < 0.017 (0.00-0.056) ng/mL NT-Pro-B Natriuret Pep (0-450) pg/mL Total Protein 6.4 (6.4-8.2) g/dl Albumin 3.4 (3.4-5.0) g/dl Globulin 3.0 gm/dL Albumin/Globulin Ratio 1.1 (1-2) Urine Color (Yellow) Urine Appearance (Clear) Urine pH (5.0-8.0) Ur Specific [place] (1.005-1.030) Urine Protein (Negative) Urine Glucose (UA) (Negative) Urine Ketones (Negative) Urine Occult Blood (Negative) Urine Nitrite (Negative) Urine Bilirubin (Negative) Urine Urobilinogen (0.2-1.0) Ur Leukocyte Esterase (Negative) Urine RBC (0-5) /hpf Urine WBC (0-5) /hpf Ur Epithelial Cells (0-5) /hpf Urine Bacteria (FEW) /hpf Urine Mucus (FEW) /hpf Blood Type Gel Antibody Screen 05/09/29/17 09/29/17 Range/Units 05:50 05:50 06:48 WBC (3.98-10.04) K/mm3 RBC (3.98-5.22) M/mm3 Hgb (11.2-15.7) gm/L Hct (34.1-44.9) % MCV (79.4-94.8) fl MCH (25.6-32.2) pg MCHC (32.2-35.5) g/dl RDW Std Deviation (36.4-46.3) fL Plt Count (182-369) K/mm3 MPV (9.4-12.3) fl Neut % (Auto) (34.0-71.1) % Lymph % (Auto) (19.3-51.7) % [place] % (Auto) (4.7-12.5) % Eos % (Auto) (0.7-5.8) Baso % (Auto) (0.1-1.2) % Neut # (Auto) (1.56-6.13) K/mm3 Lymph # (Auto) (1.18-3.74) K/mm3 [place] # (Auto) (0.24-0.36) K/mm3 Eos # (Auto) (0.04-0.36) K/mm3 Baso # (Auto) (0.01-0.08) K/mm3 Manual Slide Review PT (9.5-12.1) SECONDS INR Sodium (136-145) mEq/L Potassium (3.5-5.1) mEq/L Chloride (98-107) mEq/L Carbon Dioxide (21-32) mEq/L Anion Gap (5-15) BUN (7-18) mg/dL Creatinine (0.55-1.02) mg/dL Est Cr Clr Drug Dosing mL/min Estimated GFR (MDRD) (>60) mL/min BUN/Creatinine Ratio (14-18) Glucose (83-115) mg/dL Calcium (8.5-10.1) mg/dL Magnesium (1.8-2.4) mg/dl Total Bilirubin (0.2-1.0) mg/dL AST (15-37) U/L ALT (14-59) U/L Alkaline Phosphatase (46-116) U/L Troponin I (0.00-0.056) ng/mL NT-Pro-B Natriuret Pep 696 H (0-450) pg/mL Total Protein (6.4-8.2) g/dl Albumin (3.4-5.0) g/dl Globulin gm/dL Albumin/Globulin Ratio (1-2) Urine Color Yellow (Yellow) Urine Appearance Clear (Clear) Urine pH 6.0 (5.0-8.0) Ur Specific [place] 1.025 (1.005-1.030) Urine Protein 1+ H (Negative) Urine Glucose (UA) Negative (Negative) Urine Ketones Negative (Negative) Urine Occult Blood Trace-lysed H (Negative) Urine Nitrite Positive H (Negative) Urine Bilirubin Negative (Negative) Urine Urobilinogen 0.2 (0.2-1.0) Ur Leukocyte Esterase Negative (Negative) Urine RBC 0-5 (0-5) /hpf Urine WBC 0-5 (0-5) /hpf Ur Epithelial Cells 0-5 (0-5) /hpf Urine Bacteria Moderate H (FEW) /hpf Urine Mucus Few (FEW) /hpf Blood Type O NEGATIVE Gel Antibody Screen Negative Result Diagrams: 09/30/17 14:00 09/30/17 05:49 Problem List Initiated/Reviewed/Updated: Yes Orders Last 24hrs: Active Orders 24 hr Category Date Time Status Patient Status [ADT] Routine ADT 09/29/17 10:28 Active EKG 12 Lead [EKG Documentation Completion] [RC] STAT Care 09/29/17 04:39 Active Regular Diet [DIET] Diet 09/29/17 Lunch Active CULTURE URINE [RM] Stat Lab 09/29/17 04:54 Received T4 FREE [CHEM] Routine Lab 09/29/17 05:50 Received TSH [CHEM] Routine Lab 09/29/17 05:50 Received UA W/MICROSCOPIC [URIN] Stat Lab 09/29/17 06:48 Ordered Acetaminophen/Caffeine [Excedrin Tension Headache] Med 09/29/17 10:49 Ordered 250 mg PO DAILY PRN Aspirin/Acetaminophen/Caffeine Med 09/29/17 10:49 Ordered 1 each PO ONETIME PRN Calcium Carbonate/Vitamin D3 [Calcium Carbonate/Vitamin Med 09/30/17 09:00 Active D 600 MG-200 Unit] 1 tab PO DAILY Furosemide [Lasix] Med 09/30/17 09:00 Active 20 mg PO DAILY Latanoprost [Xalatan 0.005% Ophth Soln] Med 09/30/17 09:00 Active 0 ml EYEBOTH DAILY Levothyroxine [Synthroid] Med 09/30/17 06:00 Active 88 mcg PO ACBREAKFAST Losartan [Cozaar] Med 09/29/17 21:00 Active 100 mg PO BEDTIME Metoprolol Succinate [Toprol XL] Med 09/30/17 09:00 Active 50 mg PO DAILY Multivitamins/Min/FA/Lut/Zeax [ICaps MV] Med 09/30/17 09:00 Active 1 tab PO DAILY Timolol Maleate Med 09/30/17 09:00 Pending 1 drop TOP DAILY DME for Discharge [COMM] Stat Ot 09/29/17 06:15 Ordered Medication Orders Calcium Carbonate (Calcium Carbonate/Vitamin D 600 Mg-200 Unit) 1 tab PO DAILY SOLANGE Furosemide (Lasix) 20 mg PO DAILY SOLANGE Latanoprost (Xalatan 0.005% Ophth Soln) 0 ml EYEBOTH DAILY SOLANGE Levothyroxine Sodium (Synthroid) 88 mcg PO ACBREAKFAST SOLANGE Losartan Potassium (Cozaar) 100 mg PO BEDTIME SOLANGE Metoprolol Succinate (Toprol Xl) 50 mg PO DAILY SOLANGE Non-Formulary Medication (Acetaminophen/Caffeine [Excedrin Tension Headache]) 250 mg PO DAILY PRN PRN Reason: Pain Non-Formulary Medication (Aspirin/Acetaminophen/Caffeine) 1 each PO ONETIME PRN PRN Reason: Headache Non-Formulary Medication (Timolol Maleate) 1 drop TOP DAILY SOL[facility] Vit A/Vit C/Vit E/Selen/Cu/Zn/[facility] 1 tab PO DAILY SOL[facility] Assessment/Plan Comment:: Assessment/Plan: Acute: Stable Right Pelvic Ramus Fx (Inferior and Superior) - S/p Fall - Risk Factors: Osteoporosis, OA and Poor Vision - Conservative Management per Ortho - Dr. Barr following - PT/OT consult Non-displaced Fx 5th Proximal Metatarsal - S/p Fall - Risk Factors: Osteoporosis, OA and Poor Vision - Conservative Management per Ortho - PT/OT Hypomagnesemia - Mg 1.7 - 2/2 Inadequate intake - Replete and monitor S/p Fall - 2/2 Dizziness - BP stable, Not hypoglycemic - Did not trip over carpet or stuff - No complaints with vision S/p Dizziness - No hx/o abnormal rhythm - No hx/o autonomic dysfunction - EKG is normal rhythm - Telemetry and review BP medications Chronic: Glaucoma/Macular Degeneration CAD HTN HLD SOB-Intermittent Hypothyroidism GERD OA Osteoporosis Hx/o Finger Fx Hx/o Shoulder Blade Fx Headache Lymphoma Plan: Admit to [facility] with Tele Routine AM Labs Resume Home Meds High Fall Risks Ortho Consult PT/OT consult SW/CM for d/c planning Code status: DNR/DNI
[2017-09-29] MEDS ORDERED: Promethazine 6.25 MG in Sodium Chloride 0.9% 50 ML IV PRN (11:54)
[2017-09-29] MEDS ORDERED: HYDROmorphone 0.5 MG/0.5 ML SYRINGE IVPUSH PRN (11:54)
[2017-09-29] MEDS ORDERED: LORazepam 2 MG/ML SDV IV PRN (11:54)
[2017-09-29] MEDS ORDERED: Acetaminophen 325 MG Tab PO PRN (11:54)
[2017-09-29] MEDS ORDERED: Docusate Sodium 100 MG Cap PO PRN (11:55)
[2017-09-29] MEDS ORDERED: Albuterol/Ipratropium 3.0-0.5 MG/3 ML Neb Soln NEB PRN (11:55)
[2017-09-29] MEDS ORDERED: Polyethylene Glycol 3350 Powder 17 GM Packet PO PRN (11:55)
[2017-09-29] MEDS ORDERED: Bisacodyl 5 MG Tab PO PRN (11:55)
--- NOTE | 2017-09-29 12:06 | PCM.SN ---
- Free Text/Narrative Note: Called Dr. Cortez in [facility] but w/o any success. Left a message for him to call me back to discuss management/care related to osteoporosis after discharge.
[2017-09-29] MEDS: Sodium Chloride 0.9% 1,000 ML IV SCH (12:52)
[2017-09-29] MEDS: ACETAMINOPHEN PO PRN ×2 (14:55→18:57)
[2017-09-29] MEDS: ASPIRIN PO PRN ×2 (14:55→18:57)
[2017-09-29] MEDS: CAFFEINE PO PRN ×2 (14:55→18:57)
[2017-09-29] MEDS ORDERED: Naphazoline 0.12%/Zinc Sulfate/Glycerin Ophth Soln 15 ML Bottle EYEBOTH PRN (14:58)
[2017-09-29] MEDS: Losartan 100 MG Tab PO SCH (20:27)
[2017-09-29] MEDS: Timolol Maleate 0.5% Ophth Soln 5 ML Bottle EYERT SCH (20:27)
[2017-09-29] MEDS: Latanoprost 0.005% Ophth Soln 2.5 ML Bottle EYEBOTH SCH (20:27)
[2017-09-29] MEDS ORDERED: Temazepam 7.5 MG Cap PO PRN (21:00)
[2017-09-29] MEDS: Acetaminophen/HYDROcodone 325-5 MG Tab PO PRN (22:32)
[2017-09-30] MEDS: Levothyroxine 88 MCG Tab PO SCH (05:08)
[2017-09-30] MEDS: Acetaminophen/HYDROcodone 325-5 MG Tab PO PRN ×2 (08:05→21:01)
--- NOTE | 2017-09-30 08:07 | PCM.PN ---
- General Info Date of Service: 09/30/17 Admission Dx/Problem (Free Text): Admission Diagnosis/Problem Admission Diagnosis/Problem Hypoxia Subjective Update: Follow Up Functional Status: Reports: Pain Controlled, Tolerating Diet, Urinating. Denies : New Symptoms - Review of Systems General: Reports: Weakness. Denies: Fever, Fatigue, Malaise, Chills HEENT: Reports: No Symptoms Pulmonary: Denies: Shortness of Breath, Pleuritic Chest Pain, Cough Cardiovascular: Denies: Chest Pain, Palpitations, Dyspnea on Exertion, Edema, Lightheadedness Gastrointestinal: Denies: Abdominal Pain, Nausea, Vomiting Genitourinary: Reports: No Symptoms Musculoskeletal: Denies: Neck Pain, Hand Pain, Foot Pain Skin: Denies: Cyanosis, Jaundice, Mottled, Pallor, Diaphoresis, Bruising, Pruritis Neurological: Reports: Difficulty Walking, Weakness, Gait Disturbance. Denies: Confusion Psychiatric: Denies: Depression, Anxiety, Agitation, Hallucinations Systems Review Comment:: No overnight or acute issues. She slept well last night. Her pain is controlled. Her Mg is slightly low at 1.7 and Hgb level is at 9.0. She has no complaints this morning. - Patient Data Vitals - Most Recent: Last Vital Signs Temp 36.7 C 09/30/17 04:22 Pulse 69 09/30/17 04:22 Resp 16 09/30/17 04:22 BP 122/60 09/30/17 04:22 Pulse Ox 95 09/30/17 04:22 Weight - Most Recent: 49.442 kg I&O - Last 24 Hours: Intake & Output 09/29/17 09/30/17 09/30/17 22:59 06:59 14:59 Intake Total 1192 702 Output Total 550 200 Balance 642 502 Lab Results Last 24 Hours: Laboratory Results - last 24 hr 09/29/17 09/30/17 09/30/17 Range/Units 05:50 05:49 05:49 WBC 7.56 (3.98-10.04) K/mm3 RBC 2.97 L (3.98-5.22) M/mm3 Hgb 9.0 L (11.2-15.7) gm/L Hct 28.7 L (34.1-44.9) % MCV 96.6 H (79.4-94.8) fl MCH 30.3 (25.6-32.2) pg MCHC 31.4 L (32.2-35.5) g/dl RDW Std Deviation 44.3 (36.4-46.3) fL Plt Count 121 L (182-369) K/mm3 MPV 9.8 (9.4-12.3) fl Neut % (Auto) 81.7 H (34.0-71.1) % Lymph % (Auto) 3.8 L (19.3-51.7) % [place] % (Auto) 9.8 (4.7-12.5) % Eos % (Auto) 4.0 (0.7-5.8) Baso % (Auto) 0.4 (0.1-1.2) % Neut # (Auto) 6.18 H (1.56-6.13) K/mm3 Lymph # (Auto) 0.29 L (1.18-3.74) K/mm3 [place] # (Auto) 0.74 H (0.24-0.36) K/mm3 Eos # (Auto) 0.30 (0.04-0.36) K/mm3 Baso # (Auto) 0.03 (0.01-0.08) K/mm3 Manual Slide Review Abnormal smear Sodium 139 (136-145) mEq/L Potassium 3.9 (3.5-5.1) mEq/L Chloride 106 (98-107) mEq/L Carbon Dioxide 29 (21-32) mEq/L Anion Gap 7.9 (5-15) BUN 22 H (7-18) mg/dL Creatinine 0.9 (0.55-1.02) mg/dL Est Cr Clr Drug Dosing 35.67 mL/min Estimated GFR (MDRD) 60 (>60) mL/min BUN/Creatinine Ratio 24.4 H (14-18) Glucose 94 (83-115) mg/dL Calcium 8.2 L (8.5-10.1) mg/dL Magnesium 1.7 L (1.8-2.4) mg/dl Free T4 1.38 (0.76-1.46) ng/dL TSH 3rd Generation 4.469 H (0.358-3.74) uIU/mL Med Orders - Current: Current Medications Acetaminophen (Tylenol) 650 mg PO Q4H PRN PRN Reason: Pain (Mild 1-3)/fever Hydrocodone Bitart/Acetaminophen (Walnut 325-5 Mg) 1 tab PO Q4H PRN PRN Reason: Pain (moderate 4-6) Last Admin: 09/29/17 22:32 Dose: 1 tab Albuterol/Ipratropium (Duoneb 3.0-0.5 Mg/3 Ml) 3 ml NEB Q4H PRN PRN Reason: Shortness Of Breath/wheezing Bisacodyl (Dulcolax) 5 mg PO DAILY PRN PRN Reason: Constipation Calcium Carbonate (Calcium Carbonate/Vitamin D 600 Mg-200 Unit) 1 tab PO DAILY [facility] Docusate Sodium (Colace) 100 mg PO BID PRN PRN Reason: Constipation Enoxaparin Sodium (Lovenox) 30 mg SUBCUT Q24H SOLANGE Furosemide (Lasix) 20 mg PO DAILY [facility] Hydromorphone HCl (Dilaudid) 0.25 mg IVPUSH Q2H PRN PRN Reason: Pain (severe 7-10) Promethazine HCl 6.25 mg/ (Sodium Chloride) 50.25 mls @ 100 mls/hr IV Q6H PRN PRN Reason: Nausea/Vomiting Sodium Chloride (Normal Saline) 1,000 mls @ 50 mls/hr IV ASDIRECTED [facility] Last Admin: 09/29/17 12:52 Dose: 50 mls/hr Ceftriaxone Sodium 1 gm/ (Dextrose/Water) 100 mls @ 200 mls/hr IV Q24H [facility] Latanoprost (Xalatan 0.005% Ophth Soln) 0 ml EYEBOTH BID [facility] Last Admin: 09/29/17 20:27 Dose: 1 drop Levothyroxine Sodium (Synthroid) 88 mcg PO ACBREAKFAST [facility] Last Admin: 09/30/17 05:08 Dose: 88 mcg Lorazepam (Ativan) 0.25 mg IV Q6H PRN PRN Reason: Anxiety Losartan Potassium (Cozaar) 100 mg PO BEDTIME [facility] Last Admin: 09/29/17 20:27 Dose: 100 mg Metoprolol Succinate (Toprol Xl) 50 mg PO DAILY [facility] Naphazoline HCl/Zinc Sulfate (Clear Eyes Itchy Eye Rlf Drops) 0 ml EYEBOTH ASDIRECTED PRN PRN Reason: Dry Eyes Ondansetron HCl (Zofran) 4 mg IV Q6H PRN PRN Reason: Nausea/Vomiting Aspirin/Acetaminophen/Caffeine (Excedrin Extra Strength) 0 each PO Q6H PRN PRN Reason: Headache Last Admin: 09/29/17 18:57 Dose: 1 each Polyethylene Glycol (Miralax) 17 gm PO DAILY PRN PRN Reason: Constipation Senna/Docusate Sodium (Senna Plus) 1 tab PO BID PRN PRN Reason: Constipation Temazepam (Restoril) 7.5 mg PO BEDTIME PRN PRN Reason: Sleep Timolol Maleate (Timoptic 0.5% Ophth Soln) 0 ml EYERT BID [facility] Last Admin: 09/29/17 20:27 Dose: 1 drop Vit A/Vit C/Vit E/Selen/Cu/Zn/Lutei (Icaps Mv) 1 tab PO DAILY [facility] Discontinued Medications Fentanyl (Sublimaze) 25 mcg IVPUSH Q2H PRN PRN Reason: Pain Last Admin: 09/29/17 06:49 Dose: 25 mcg Fentanyl (Sublimaze) 50 mcg IVPUSH ONETIME ONE Stop: 09/29/17 10:09 Last Admin: 09/29/17 10:13 Dose: 50 mcg Sodium Chloride (Normal Saline) 500 mls @ 1,000 mls/hr IV ONETIME ONE Stop: 09/29/17 06:52 Last Admin: 09/29/17 06:43 Dose: 1,000 mls/hr Sodium Chloride (Normal Saline) 250 mls @ 80 mls/hr IV ASDIRECTED [facility] Last Admin: 09/29/17 07:11 Dose: 80 mls/hr Ceftriaxone Sodium 2 gm/ (Sodium Chloride) 100 mls @ 100 mls/hr IV ONETIME ONE Stop: 09/29/17 09:29 Last Admin: 09/29/17 10:12 Dose: 100 mls/hr Iopamidol (Isovue-370 (76%)) 100 ml IVPUSH ONETIME ONE Stop: 09/29/17 06:49 Last Admin: 09/29/17 07:09 Dose: 100 ml Non-Formulary Medication (Acetaminophen/Caffeine [Excedrin Tension Headache]) 250 mg PO DAILY PRN PRN Reason: Pain Aspirin/Acetaminophen/Caffeine (Excedrin Extra Strength) 0 each PO ONETIME PRN PRN Reason: Headache Sodium Chloride (Saline Flush) 10 ml FLUSH ONETIME PRN PRN Reason: IV FLUSH Last Admin: 09/29/17 07:11 Dose: 10 ml - Exam General: Alert, Oriented, Cooperative, No Acute Distress HEENT: Pupils Equal, Pupils Reactive, EOMI, Mucous Membr. Moist/[place] Neck: Supple, Trachea Midline, No JVD, No Thyromegaly Lungs: Normal Respiratory Effort, Decreased Breath Sounds Cardiovascular: Regular Rate, Regular Rhythm GI/Abdominal Exam: Normal Bowel Sounds, Soft, Non-Tender, No Organomegaly, No Distention, No Abnormal Bruit (Female) Exam: Deferred Back Exam: Normal Inspection, Decreased Range of Motion Extremities: Normal Inspection, Normal Range of Motion, Non-Tender, No Pedal Edema, Normal Capillary Refill Peripheral Pulses: 2+: Dorsalis Pedis (L), Dorsalis Pedis (R) Skin: Warm, Dry, Intact Neurological: No New Focal Deficit Psy/Mental Status: Alert, Normal Affect, Normal Mood - Problem List Review Problem List Initiated/Reviewed/Updated: Yes - My Orders Last 24 Hours: My Active Orders 09/29/17 11:54 Cardiac Monitoring [RC] CONTINUOUS Height and Weight [RC] 04 Intake and Output [RC] 04,16 Oxygen Therapy [RC] PRN Pulse Oximetry [RC] PRN Up With Assistance [RC] QSHIFT Up ad Sylvia [RC] QSHIFT VTE/DVT Education [RC] QSHIFT Vital Signs [RC] Q4HR Acetaminophen [Tylenol] 650 mg PO Q4H PRN Acetaminophen/HYDROcodone [Walnut 325-5 MG] 1 tab PO Q4H PRN HYDROmorphone [Dilaudid] 0.25 mg IVPUSH Q2H PRN LORazepam [Ativan] 0.25 mg IV Q6H PRN Ondansetron [Zofran] 4 mg IV Q6H PRN Promethazine [Phenergan] 6.25 mg Sodium Chloride 0.9% [Normal Saline] 50 ml IV Q6H Resuscitation Status Routine 09/29/17 11:55 Albuterol/Ipratropium [DuoNeb 3.0-0.5 MG/3 ML] 3 ml NEB Q4H PRN Bisacodyl [Dulcolax] 5 mg PO DAILY PRN Docusate Sodium [Colace] 100 mg PO BID PRN Docusate Sodium/Sennosides [Senna Plus] 1 tab PO BID PRN Polyethylene Glycol 3350 [MiraLAX] 17 gm PO DAILY PRN 09/29/17 11:56 RT Aerosol Therapy [RC] ASDIRECTED Consult to Case Management [CONS] Routine Consult to Applications System Analyst [CONS] Routine Consult to Assembler Camper [CONS] Routine Consult to Spiritual Care [CONS] Routine OT Evaluation and Treatment [CONS] Routine PT Evaluation and Treatment [CONS] Routine Respiratory Care Assess and Treatment [CONS] Routine 09/29/17 12:00 Sodium Chloride 0.9% [Normal Saline] 1,000 ml IV ASDIRECTED 09/29/17 14:58 Naphazoline/Zinc Sulf/Glycerin [Clear Eyes Itchy Eye Rlf Drops] 0 ml EYEBOTH ASDIRECTED PRN 09/29/17 15:00 Patient's Own Medication [Ptom] 0 each PO Q6H PRN 09/29/17 21:00 Latanoprost [Xalatan 0.005% Ophth Soln] 0 ml EYEBOTH BID Losartan [Cozaar] 100 mg PO BEDTIME Temazepam [Restoril] 7.5 mg PO BEDTIME PRN Timolol Maleate [Timoptic 0.5% Ophth Soln] 0 ml EYERT BID 09/29/17 22:44 Consult to Physician [CONS] Routine 09/29/17 22:46 Notify Provider Consults [RC] ASDIRECTED 09/29/17 Lunch Regular Diet [DIET] 09/30/17 06:00 Levothyroxine [Synthroid] 88 mcg PO ACBREAKFAST 09/30/17 09:00 Calcium Carbonate/Vitamin D3 [Calcium Carbonate/Vitamin D 600 MG-200 Unit] 1 tab PO DAILY Enoxaparin [Lovenox] 30 mg SUBCUT Q24H Furosemide [Lasix] 20 mg PO DAILY Metoprolol Succinate [Toprol XL] 50 mg PO DAILY Multivitamins/Min/FA/Lut/Zeax [ICaps MV] 1 tab PO DAILY 09/30/17 10:00 cefTRIAXone [Rocephin] 1 gm Dextrose 5% in Water 100 ml IV Q24H 10/01/17 05:11 BASIC METABOLIC PANEL,BMP [CHEM] AM MAGNESIUM [CHEM] AM 10/02/17 05:11 BASIC METABOLIC PANEL,BMP [CHEM] AM MAGNESIUM [CHEM] AM - Plan Plan:: Assessment/Plan: Acute: Right Sided Pubic Rami Fx, Stable - S/p Fall - Risk Factors: Osteoporosis, OA and Poor Vision - Conservative Management per Ortho - Dr. Barr following - Continue PT/OT Non-displaced Fx 5th Proximal Metatarsal, Stable - S/p Fall - Risk Factors: Osteoporosis, OA and Poor Vision - Conservative Management per Ortho; on cam/walker scott - Continue PT/OT Hypomagnesemia, Unchanged - Mg 1.7--> 1.7 - 2/2 Inadequate intake - Replete and monitor Anemia - Hgb 11--> 9.0 - No active bleeding but has pelvic fx - On IVF; possible hemodilution - Re-check H/H at 1400 Resolved: S/p Fall - 2/2 Dizziness - BP stable, Not hypoglycemic - Did not trip over carpet or stuff - No complaints with vision S/p Dizziness - No hx/o abnormal rhythm - No hx/o autonomic dysfunction - EKG is normal rhythm - Telemetry and review BP medications Chronic: Glaucoma/Macular Degeneration CAD HTN HLD SOB-Intermittent Hypothyroidism GERD OA Osteoporosis Hx/o Finger Fx Hx/o Shoulder Blade Fx Headache Lymphoma Plan: She is clinically much better Continue current treatment Routine AM Labs High Fall Risks Ortho following Continue PT/OT SW/CM for d/c planning Code status: DNR/DNI LOS anticipate > 96 hrs due to SNF/Rehab placement
--- NOTE | 2017-09-30 08:34 | CONS ---
CONSULTING PHYSICIAN: Aneudy Barr MD DATE OF CONSULTATION: 09/29/2017 HISTORY: This is the one of multiple admissions to [facility] for evaluation of fractures to her pelvis and also her right lower extremity. The patient was at her home when she suffered the injury secondary to a fall. She notes that she was using a walker for stabilization, but somehow she states she lost her balance and resulting in the injury. The patient had suffered the severe pain and fall and was brought in the emergency room. X-rays were taken and found to have the problems involving the pelvis and right lower extremity. She was directly admitted to the hospital for evaluation and stabilization purposes and orthopedic consultation was called for. PAST MEDICAL HISTORY: The patient has a positive surgical history of cataracts, coronary artery stents, appendectomy, cholecystectomy. MEDICATIONS: Current medications include Excedrin, also she is on Synthroid, Ocuvite, Toprol, Timoptic, Cozaar. She is on calcium with vitamin D, Lasix, and Lumigan. ALLERGY HISTORY: The patient notes allergies to fluticasone and amlodipine. PAST MEDICAL HISTORY: Medically, the patient has had a history of problems involving her cataracts and also a history of coronary artery disease and decreased thyroid problems. The patient has a negative bleeding history, negative blood clot history. PHYSICAL EXAMINATION: GENERAL: In the hospital, this is an 86-year-old female in moderate distress. HEAD, EYES, EARS, NOSE, THROAT: Normocephalic. NECK: Supple. CHEST: Clear. COR: Regular rate. ABDOMEN: Soft. : Intact. MUSCULOSKELETAL: Examination of the pelvis reveals severe pain to direct pressure to palpation over the pubic symphysis, especially on the right side. The right hip evaluation; this was found to be intact. It did produce increased pain in the pubic symphysis. Examination of the right knee was intact with no pain elicited on direct pressure. Right foot and ankle found positive pain in the base area of the 5th metatarsal of the right foot along with positive pain over the navicular bone. Circulation intact distally. DATA: 1. The x-ray evaluation: The patient was found to have a pubic symphysis fracture to the right side with minimal displacement. Significant osteopenia was noted. 2. X-rays of the patient's right foot shows a nondisplaced fracture of the basal area of the 5th metatarsal and also avulsion-type fracture to the dorsal aspect of the navicular bone, probably due to a capsular injury. OVERALL IMPRESSION: 1. The is an acute pelvic fracture involving the pubic symphysis. 2. Fracture of the 5th metatarsal, right foot. 3. Avulsion fracture, navicular bone, right foot. PLAN: 1. Will be for the patient to be stabilized medically. 2. The patient can start a walker out of bed with the CAM boot on the right lower extremity. I suggest the patient wear a pelvic/sacral belt to help support the pelvis and begin the ambulation period with just 50% weightbearing on the right side and/or as tolerated. 3. Continue stabilization and pain control. MMKATHLEEN /[id number]
[2017-09-30] MEDS ORDERED: Magnesium Oxide 400 MG Tab PO ONE (09:00)
[2017-09-30] MEDS: Sodium Chloride 0.9% 1,000 ML IV SCH (09:11)
[2017-09-30] MEDS: cefTRIAXone 1 GM in Dextrose 5% in Water 100 ML IV SCH ×2 (09:13)
[2017-09-30] MEDS: Multivitamins with Minerals/Folic Acid/Lutein/Zeaxanth Tab PO SCH (09:23)
[2017-09-30] MEDS: Calcium Carbonate/Vitamin D3 600 MG-200 Units Tab PO SCH (09:23)
[2017-09-30] MEDS: Metoprolol Succinate 50 MG Tab.ER PO SCH (09:23)
[2017-09-30] MEDS: Furosemide 20 MG Tab PO SCH (09:23)
[2017-09-30] MEDS: Enoxaparin 30 MG/0.3 ML Syringe SUBCUT SCH (09:26)
[2017-09-30] MEDS: Latanoprost 0.005% Ophth Soln 2.5 ML Bottle EYEBOTH SCH ×2 (09:27→21:01)
[2017-09-30] MEDS: Timolol Maleate 0.5% Ophth Soln 5 ML Bottle EYERT SCH ×2 (09:27→21:00)
[2017-09-30] MEDS: CAFFEINE PO PRN ×2 (13:08→22:36)
[2017-09-30] MEDS: ACETAMINOPHEN PO PRN ×2 (13:08→22:36)
[2017-09-30] MEDS: ASPIRIN PO PRN ×2 (13:08→22:36)
[2017-09-30] MEDS: Losartan 100 MG Tab PO SCH (20:59)
[2017-10-01] MEDS: Acetaminophen/HYDROcodone 325-5 MG Tab PO PRN ×2 (05:17→16:44)
[2017-10-01] MEDS: Levothyroxine 88 MCG Tab PO SCH (05:17)
[2017-10-01] MEDS: Sodium Chloride 0.9% 1,000 ML IV SCH (05:19)
--- NOTE | 2017-10-01 06:26 | PCM.PN ---
- General Info Date of Service: 10/01/17 Admission Dx/Problem (Free Text): Admission Diagnosis/Problem Admission Diagnosis/Problem Hypoxia Subjective Update: In to see Sharlene. She is lying in bed. Her Hgb has dropped over the course of her stay and she will receive one unit today. CT scan of abdomen and pelvis show no bleed or hematoma. Occult stool ordered. Will order iron studies in the AM. She reports some weakness but no other concerns. Nursing has no concerns. She will need placement. Functional Status: Reports: Pain Controlled, Tolerating Diet, Urinating. Denies : New Symptoms - Review of Systems General: Reports: Weakness, Fatigue, Malaise. Denies: Fever, Chills, Appetite HEENT: Reports: No Symptoms Pulmonary: Reports: No Symptoms. Denies: Shortness of Breath, Cough, Sputum, Wheezing Cardiovascular: Reports: No Symptoms. Denies: Chest Pain, Palpitations, Dyspnea on Exertion, Edema Gastrointestinal: Reports: Decreased Appetite. Denies: Abdominal Pain, Constipation, Diarrhea, Nausea, Vomiting Genitourinary: Reports: No Symptoms Musculoskeletal: Reports: Other (groin pain with movement ) Skin: Reports: No Symptoms Neurological: Reports: No Symptoms Psychiatric: Reports: No Symptoms - Patient Data Vitals - Most Recent: Last Vital Signs Temp 97.3 F 10/01/17 04:31 Pulse 61 10/01/17 04:31 Resp 16 10/01/17 04:31 BP 112/51 L 10/01/17 04:31 Pulse Ox 96 10/01/17 04:31 Weight - Most Recent: 113 lb 6.4 oz I&O - Last 24 Hours: Intake & Output 09/30/17 09/30/17 10/01/17 14:59 22:59 06:59 Intake Total 180 1588 1188 Output Total 550 175 Balance 180 1038 1013 Lab Results Last 24 Hours: Laboratory Results - last 24 hr 09/30/17 09/30/17 09/30/17 Range/Units 05:49 05:49 14:00 WBC 7.56 (3.98-10.04) K/mm3 RBC 2.97 L (3.98-5.22) M/mm3 Hgb 9.0 L 9.0 L (11.2-15.7) gm/L Hct 28.7 L 29.0 L (34.1-44.9) % MCV 96.6 H (79.4-94.8) fl MCH 30.3 (25.6-32.2) pg MCHC 31.4 L (32.2-35.5) g/dl RDW Std Deviation 44.3 (36.4-46.3) fL Plt Count 121 L (182-369) K/mm3 MPV 9.8 (9.4-12.3) fl Neut % (Auto) 81.7 H (34.0-71.1) % Lymph % (Auto) 3.8 L (19.3-51.7) % Terry % (Auto) 9.8 (4.7-12.5) % Eos % (Auto) 4.0 (0.7-5.8) Baso % (Auto) 0.4 (0.1-1.2) % Neut # (Auto) 6.18 H (1.56-6.13) K/mm3 Lymph # (Auto) 0.29 L (1.18-3.74) K/mm3 Terry # (Auto) 0.74 H (0.24-0.36) K/mm3 Eos # (Auto) 0.30 (0.04-0.36) K/mm3 Baso # (Auto) 0.03 (0.01-0.08) K/mm3 Manual Slide Review Abnormal smear Sodium 139 (136-145) mEq/L Potassium 3.9 (3.5-5.1) mEq/L Chloride 106 (98-107) mEq/L Carbon Dioxide 29 (21-32) mEq/L Anion Gap 7.9 (5-15) BUN 22 H (7-18) mg/dL Creatinine 0.9 (0.55-1.02) mg/dL Est Cr Clr Drug Dosing 35.67 mL/min Estimated GFR (MDRD) 60 (>60) mL/min BUN/Creatinine Ratio 24.4 H (14-18) Glucose 94 (83-115) mg/dL Calcium 8.2 L (8.5-10.1) mg/dL Magnesium 1.7 L (1.8-2.4) mg/dl [place] Results Last 24 Hours: Microbiology 09/29/17 04:54 Urine Culture - Final Urine, Catheterized Escherichia Coli Med Orders - Current: Current Medications Acetaminophen (Tylenol) 650 mg PO Q4H PRN PRN Reason: Pain (Mild 1-3)/fever Hydrocodone Bitart/Acetaminophen ([place] 325-5 Mg) 1 tab PO Q4H PRN PRN Reason: Pain (moderate 4-6) Last Admin: 10/01/17 05:17 Dose: 1 tab Albuterol/Ipratropium (Duoneb 3.0-0.5 Mg/3 Ml) 3 ml NEB Q4H PRN PRN Reason: Shortness Of Breath/wheezing Bisacodyl (Dulcolax) 5 mg PO DAILY PRN PRN Reason: Constipation Calcium Carbonate (Calcium Carbonate/Vitamin D 600 Mg-200 Unit) 1 tab PO DAILY [facility] Last Admin: 09/30/17 09:23 Dose: 1 tab Docusate Sodium (Colace) 100 mg PO BID PRN PRN Reason: Constipation Enoxaparin Sodium (Lovenox) 30 mg SUBCUT Q24H [facility] Last Admin: 09/30/17 09:26 Dose: 30 mg Furosemide (Lasix) 20 mg PO DAILY [facility] Last Admin: 09/30/17 09:23 Dose: 20 mg Hydromorphone HCl (Dilaudid) 0.25 mg IVPUSH Q2H PRN PRN Reason: Pain (severe 7-10) Promethazine HCl 6.25 mg/ (Sodium Chloride) 50.25 mls @ 100 mls/hr IV Q6H PRN PRN Reason: Nausea/Vomiting Sodium Chloride (Normal Saline) 1,000 mls @ 50 mls/hr IV ASDIRECTED [facility] Last Admin: 10/01/17 05:19 Dose: 50 mls/hr Ceftriaxone Sodium 1 gm/ (Dextrose/Water) 100 mls @ 200 mls/hr IV Q24H [facility] Last Admin: 09/30/17 09:13 Dose: 200 mls/hr Sodium Ferric Gluconat/Sucrose (250 mg/ Sodium Chloride) 120 mls @ 60 mls/hr IV ONETIME ONE Stop: 10/01/17 09:59 Latanoprost (Xalatan 0.005% Ophth Soln) 0 ml EYEBOTH BID [facility] Last Admin: 09/30/17 21:01 Dose: 1 drop Levothyroxine Sodium (Synthroid) 88 mcg PO ACBREAKFAST [facility] Last Admin: 10/01/17 05:17 Dose: 88 mcg Lorazepam (Ativan) 0.25 mg IV Q6H PRN PRN Reason: Anxiety Losartan Potassium (Cozaar) 100 mg PO BEDTIME [facility] Last Admin: 09/30/17 20:59 Dose: 100 mg Metoprolol Succinate (Toprol Xl) 50 mg PO DAILY [facility] Last Admin: 09/30/17 09:23 Dose: 50 mg Naphazoline HCl/Zinc Sulfate (Clear Eyes Itchy Eye Rlf Drops) 0 ml EYEBOTH ASDIRECTED PRN PRN Reason: Dry Eyes Ondansetron HCl (Zofran) 4 mg IV Q6H PRN PRN Reason: Nausea/Vomiting Aspirin/Acetaminophen/Caffeine (Excedrin Extra Strength) 0 each PO Q6H PRN PRN Reason: Headache Last Admin: 09/30/17 22:36 Dose: 1 each Polyethylene Glycol (Miralax) 17 gm PO DAILY PRN PRN Reason: Constipation Senna/Docusate Sodium (Senna Plus) 1 tab PO BID PRN PRN Reason: Constipation Temazepam (Restoril) 7.5 mg PO BEDTIME PRN PRN Reason: Sleep Timolol Maleate (Timoptic 0.5% Ophth Soln) 0 ml EYERT BID [facility] Last Admin: 09/30/17 21:00 Dose: 1 drop Vit A/Vit C/Vit E/Selen/Cu/Zn/Lutei (Icaps Mv) 1 tab PO DAILY [facility] Last Admin: 09/30/17 09:23 Dose: 1 tab Discontinued Medications Fentanyl (Sublimaze) 25 mcg IVPUSH Q2H PRN PRN Reason: Pain Last Admin: 09/29/17 06:49 Dose: 25 mcg Fentanyl (Sublimaze) 50 mcg IVPUSH ONETIME ONE Stop: 09/29/17 10:09 Last Admin: 09/29/17 10:13 Dose: 50 mcg Sodium Chloride (Normal Saline) 500 mls @ 1,000 mls/hr IV ONETIME ONE Stop: 09/29/17 06:52 Last Admin: 09/29/17 06:43 Dose: 1,000 mls/hr Sodium Chloride (Normal Saline) 250 mls @ 80 mls/hr IV ASDIRECTED [facility] Last Admin: 09/29/17 07:11 Dose: 80 mls/hr Ceftriaxone Sodium 2 gm/ (Sodium Chloride) 100 mls @ 100 mls/hr IV ONETIME ONE Stop: 09/29/17 09:29 Last Admin: 09/29/17 10:12 Dose: 100 mls/hr Sodium Ferric Gluconat/Sucrose (250 mg/ Sodium Chloride) 120 mls @ 60 mls/hr IV ONETIME ONE Stop: 09/30/17 21:59 Last Admin: 09/30/17 23:23 Dose: Not Given Iopamidol (Isovue-370 (76%)) 100 ml IVPUSH ONETIME ONE Stop: 09/29/17 06:49 Last Admin: 09/29/17 07:09 Dose: 100 ml Magnesium Oxide (Magnesium Oxide) 800 mg PO ONETIME ONE Stop: 09/30/17 09:01 Last Admin: 09/30/17 09:23 Dose: 800 mg Non-Formulary Medication (Acetaminophen/Caffeine [Excedrin Tension Headache]) 250 mg PO DAILY PRN PRN Reason: Pain Aspirin/Acetaminophen/Caffeine (Excedrin Extra Strength) 0 each PO ONETIME PRN PRN Reason: Headache Sodium Chloride (Saline Flush) 10 ml FLUSH ONETIME PRN PRN Reason: IV FLUSH Last Admin: 09/29/17 07:11 Dose: 10 ml - Exam Quality Assessment: DVT Prophylaxis General: Alert, Oriented, Cooperative, No Acute Distress HEENT: Pupils Equal, Pupils Reactive, EOMI, Mucous Membr. Moist/[place] Neck: Supple, Trachea Midline, No JVD Lungs: Normal Respiratory Effort, Decreased Breath Sounds Cardiovascular: Regular Rate, Regular Rhythm GI/Abdominal Exam: Normal Bowel Sounds, Soft, Non-Tender, No Organomegaly, No Distention, No Abnormal Bruit, No Mass, Pelvis Stable (Female) Exam: Deferred Extremities: Normal Inspection, Normal Range of Motion, Non-Tender, No Pedal Edema, Normal Capillary Refill Peripheral Pulses: 2+: Radial (L), Radial (R), Posterior Tibial (L), Posterior Tibial (R), Dorsalis Pedis (L), Dorsalis Pedis (R) Skin: Warm, Dry, Intact Neurological: No New Focal Deficit Psy/Mental Status: Alert, Normal Affect, Normal Mood - Problem List & Annotations (1) Anemia SNOMED Code(s): 384751292 Code(s): D64.9 - ANEMIA, UNSPECIFIED Status: Acute Priority: High Current Visit: Yes Qualifiers: Anemia type: unspecified type Qualified Code(s): D64.9 - Anemia, unspecified (2) Fall SNOMED Code(s): 5476595, 373316878 Code(s): W19.XXXA - UNSPECIFIED FALL, INITIAL ENCOUNTER Status: Acute Priority: High Current Visit: Yes Qualifiers: Encounter type: initial encounter Qualified Code(s): W19.XXXA - Unspecified fall, initial encounter (3) Foot fracture, right SNOMED Code(s): 35232057 Code(s): S92.901A - UNSP FRACTURE OF RIGHT FOOT, INIT ENCNTR FOR CLOSED FRACTURE Status: Acute Priority: High Current Visit: Yes Qualifiers: Encounter type: initial encounter Fracture type: closed Qualified Code(s) : S92.901A - Unspecified fracture of right foot, initial encounter for closed fracture (4) Hypoxia SNOMED Code(s): 257973402 Code(s): R09.02 - HYPOXEMIA Status: Acute Priority: High Current Visit : Yes (5) Pelvic fracture SNOMED Code(s): 43749967 Code(s): S32.9XXA - FRACTURE OF UNSP PARTS OF LUMBOSACRAL SPINE AND PELVIS, INIT Status: Acute Priority: High Current Visit: Yes Qualifiers: Encounter type: initial encounter Pelvic bone location: pubis Sublocation of pubis: unspecified portion of pubis Fracture type: closed Laterality: right Qualified Code(s): S32.501A - Unspecified fracture of right pubis, initial encounter for closed fracture (6) UTI (urinary tract infection) SNOMED Code(s): 52153754 Code(s): N39.0 - URINARY TRACT INFECTION, SITE NOT SPECIFIED Status: Acute Priority: High Current Visit: Yes Qualifiers: Urinary tract infection type: site unspecified Hematuria presence: without hematuria Qualified Code(s): N39.0 - Urinary tract infection, site not specified (7) Hypomagnesemia SNOMED Code(s): 319078195 Code(s): E83.42 - HYPOMAGNESEMIA Status: Acute Current Visit: Yes - Problem List Review Problem List Initiated/Reviewed/Updated: Yes - My Orders Last 24 Hours: My Active Orders 10/01/17 06:22 CBC WITH AUTO DIFF [HEME] Routine 10/02/17 05:11 CBC WITH AUTO DIFF [HEME] AM 10/03/17 05:11 CBC WITH AUTO DIFF [HEME] AM 10/04/17 05:11 CBC WITH AUTO DIFF [HEME] AM 10/05/17 05:11 CBC WITH AUTO DIFF [HEME] AM - Plan Plan:: Assessment/Plan: Acute: Stable Right Pelvic Ramus Fx (Inferior and Superior) - S/p Fall - Risk Factors: Osteoporosis, OA and Poor Vision - Conservative Management per Ortho - Dr. Barr following - PT/OT consult Non-displaced Fx 5th Proximal Metatarsal - S/p Fall - Risk Factors: Osteoporosis, OA and Poor Vision - Conservative Management per Ortho - can ambulate with stiff shoe - PT/OT Hypomagnesemia - Mg 1.7 - 2/2 Inadequate intake - Replete and monitor Anemia -Hgb trending down since admission 11.1-->9.0-->8.3 -Stat CT scan of abdomen and pelvis shows nothing acute, no bleeding or hematoma -Has been receiving fluids -> stop for now -Type and screen -Will order 2 units PRBC - transfuse one and hold one now -Occult stool -No obvious external bleeding/melena/hematochezia -Iron studies in AM UTI, uncomplicated -UA positive for nitrite, moderate bacteria -Culture positive for E. Coli with multiple sensitivities -Asymptomatic -2gm rocephin given in ed --> decrease to 1gm -> stop after todays dose. S/p Fall - 2/2 Dizziness - BP stable, Not hypoglycemic - Did not trip over carpet or stuff - No complaints with vision S/p Dizziness - No hx/o abnormal rhythm - No hx/o autonomic dysfunction - EKG is normal rhythm - Telemetry and review BP medications Chronic: Glaucoma/Macular Degeneration CAD HTN HLD SOB-Intermittent Hypothyroidism GERD OA Osteoporosis Hx/o Finger Fx Hx/o Shoulder Blade Fx Headache Lymphoma Lung nodules - stable from prior exam Plan: Admit to [facility] with Tele Routine AM Labs Resume Home Meds High Fall Risks Ortho Consult PT/OT consult SW/CM for d/c planning--> will need rehab placement Code status: DNR/DNI; PCP: Dr. Bloom
[2017-10-01] MEDS ORDERED: Magnesium Oxide 400 MG Tab PO ONE (09:00)
[2017-10-01] MEDS: Ondansetron 4 MG/2 ML SDV IV PRN (09:10)
[2017-10-01] MEDS: cefTRIAXone 1 GM in Dextrose 5% in Water 100 ML IV SCH ×2 (09:54)
[2017-10-01] MEDS: Multivitamins with Minerals/Folic Acid/Lutein/Zeaxanth Tab PO SCH (09:58)
[2017-10-01] MEDS: Furosemide 20 MG Tab PO SCH (09:59)
[2017-10-01] MEDS: Metoprolol Succinate 50 MG Tab.ER PO SCH (09:59)
[2017-10-01] MEDS: Calcium Carbonate/Vitamin D3 600 MG-200 Units Tab PO SCH (09:59)
[2017-10-01] MEDS: Enoxaparin 30 MG/0.3 ML Syringe SUBCUT SCH (10:00)
[2017-10-01] MEDS: Timolol Maleate 0.5% Ophth Soln 5 ML Bottle EYERT SCH ×2 (10:01→21:39)
[2017-10-01] MEDS: Latanoprost 0.005% Ophth Soln 2.5 ML Bottle EYEBOTH SCH ×2 (10:01→21:39)
--- NOTE | 2017-10-01 10:40 | CT ---
CT abdomen and pelvis Technique: Multiple axial sections were obtained from above the dome of the diaphragm inferiorly through the pubic symphysis. Intravenous and oral contrast not utilized. This diminishes interpretation details. Comparison: Prior CT abdomen and pelvis exam of 09/29/17. Findings: Small bilateral pleural effusions are seen which are an interval change from previous exam. Minimal atelectasis seen within both lung bases. Small cyst noted within the left lobe of the liver. Intrahepatic and mild extrahepatic biliary duct dilatation are again seen which is stable. Heart is slightly enlarged. Left adrenal gland contains a small nodule which is stable. Right adrenal gland is unremarkable. Kidneys appear within normal limits. Aorta shows atherosclerotic calcification which continues into the iliac vessels without aneurysm. No retroperitoneal adenopathy or mesenteric abnormalities are seen. No pelvic mass or adenopathy is seen. Comminuted fracture is again seen within the superior pubic ramus near the pubic symphysis. Fractures are seen in 2 places within the inferior pubic ramus. Intramedullary rods are noted within both hips. Degenerative change noted within the spine. No free fluid or findings of hematoma are seen within the pelvis or abdomen. Mild increased density compatible with slight soft tissue swelling and minimal contusion is seen around the pelvic fracture. Numerous sigmoid diverticula is seen. Impression: 1. Small bilateral pleural effusions which are an interval change from previous exam. 2. No pelvic or abdominal hematoma or free fluid is seen. Minimal increased density around the pelvic fracture is noted which is compatible with soft tissue swelling and minimal contusion. 3. Other incidental findings as noted above which are stable from previous CT exam. Diagnostic code #3
[2017-10-01] MEDS: Losartan 100 MG Tab PO SCH (21:40)
[2017-10-02] MEDS: Acetaminophen/HYDROcodone 325-5 MG Tab PO PRN ×2 (00:53→14:01)
[2017-10-02] MEDS: Levothyroxine 88 MCG Tab PO SCH (06:21)
[2017-10-02] MEDS: Metoprolol Succinate 50 MG Tab.ER PO SCH (08:44)
[2017-10-02] MEDS: Multivitamins with Minerals/Folic Acid/Lutein/Zeaxanth Tab PO SCH (08:44)
[2017-10-02] MEDS: Calcium Carbonate/Vitamin D3 600 MG-200 Units Tab PO SCH (08:45)
[2017-10-02] MEDS: Enoxaparin 30 MG/0.3 ML Syringe SUBCUT SCH (08:45)
[2017-10-02] MEDS: Latanoprost 0.005% Ophth Soln 2.5 ML Bottle EYEBOTH SCH ×2 (08:45→21:15)
[2017-10-02] MEDS: Timolol Maleate 0.5% Ophth Soln 5 ML Bottle EYERT SCH ×2 (08:45→21:15)
[2017-10-02] MEDS: Furosemide 20 MG Tab PO SCH (08:45)
--- NOTE | 2017-10-02 09:12 | PCM.PN ---
- General Info Date of Service: 10/02/17 Admission Dx/Problem (Free Text): Admission Diagnosis/Problem Admission Diagnosis/Problem Hypoxia Subjective Update: In to see Sharlene. She is sitting in the chair napping. She has been working with PT/OT today and has been walking more and more. She has been accepted at a SNF and we are hoping to discharge tomorrow. Dr. Fraga consulted and has no recommendations for her lowering Hgb. Repeat H&H this afternoon. She did have an episode of nausea after working with PT which has since resolved. No other concerns. No nursing concerns. Functional Status: Reports: Pain Controlled, Tolerating Diet, Ambulating, Urinating - Review of Systems General: Reports: Weakness (improving ), Fatigue (improving ), Malaise ( improving ). Denies: Fever HEENT: Reports: No Symptoms Pulmonary: Reports: No Symptoms. Denies: Shortness of Breath, Cough, Sputum, Wheezing Cardiovascular: Reports: No Symptoms. Denies: Chest Pain, Dyspnea on Exertion, Edema, Lightheadedness Gastrointestinal: Reports: Decreased Appetite. Denies: Abdominal Pain, Constipation, Diarrhea, Hematochezia, Melena, Nausea Genitourinary: Reports: No Symptoms Musculoskeletal: Reports: Foot Pain Skin: Reports: No Symptoms Neurological: Reports: No Symptoms Psychiatric: Reports: No Symptoms - Patient Data Vitals - Most Recent: Last Vital Signs Temp 97.7 F 10/02/17 03:36 Pulse 63 10/02/17 08:44 Resp 16 10/02/17 03:36 BP 137/54 L 10/02/17 08:44 Pulse Ox 95 10/02/17 03:36 Weight - Most Recent: 112 lb 14.4 oz I&O - Last 24 Hours: Intake & Output 10/01/17 10/02/17 10/02/17 22:59 06:59 14:59 Intake Total 1090 250 Output Total 1850 500 Balance -760 -250 Lab Results Last 24 Hours: Laboratory Results - last 24 hr 09/29/17 10/01/17 10/02/17 Range/Units 05:50 15:45 05:45 WBC (3.98-10.04) K/mm3 RBC (3.98-5.22) M/mm3 Hgb 10.2 L (11.2-15.7) gm/L Hct 32.2 L (34.1-44.9) % MCV (79.4-94.8) fl MCH (25.6-32.2) pg MCHC (32.2-35.5) g/dl RDW Std Deviation (36.4-46.3) fL Plt Count (182-369) K/mm3 MPV (9.4-12.3) fl Neut % (Auto) (34.0-71.1) % Lymph % (Auto) (19.3-51.7) % [place] % (Auto) (4.7-12.5) % Eos % (Auto) (0.7-5.8) Baso % (Auto) (0.1-1.2) % Neut # (Auto) (1.56-6.13) K/mm3 Lymph # (Auto) (1.18-3.74) K/mm3 [place] # (Auto) (0.24-0.36) K/mm3 Eos # (Auto) (0.04-0.36) K/mm3 Baso # (Auto) (0.01-0.08) K/mm3 Manual Slide Review Sodium 134 L (136-145) mEq/L Potassium 4.1 (3.5-5.1) mEq/L Chloride 100 (98-107) mEq/L Carbon Dioxide 31 (21-32) mEq/L Anion Gap 7.1 (5-15) BUN 12 (7-18) mg/dL Creatinine 0.7 (0.55-1.02) mg/dL Est Cr Clr Drug Dosing 46.47 mL/min Estimated GFR (MDRD) > 60 (>60) mL/min BUN/Creatinine Ratio 17.1 (14-18) Glucose 88 (83-115) mg/dL Calcium 8.2 L (8.5-10.1) mg/dL Magnesium 1.8 (1.8-2.4) mg/dl Iron (50-170) ug/dL TIBC (100-400) ug/dL % Saturation (20-55) % Transferrin (202-364) mg/dL Vitamin B12 (193-986) pg/ml Folate (8.6-58.9) ng/mL Blood Type O NEGATIVE Gel Antibody Screen Negative Crossmatch See Detail 10/02/17 10/02/17 Range/Units 05:45 05:45 WBC 6.65 (3.98-10.04) K/mm3 RBC 3.13 L (3.98-5.22) M/mm3 Hgb 9.4 L (11.2-15.7) gm/L Hct 29.8 L (34.1-44.9) % MCV 95.2 H (79.4-94.8) fl MCH 30.0 (25.6-32.2) pg MCHC 31.5 L (32.2-35.5) g/dl RDW Std Deviation 46.6 H (36.4-46.3) fL Plt Count 121 L (182-369) K/mm3 MPV 9.8 (9.4-12.3) fl Neut % (Auto) 74.3 H (34.0-71.1) % Lymph % (Auto) 6.3 L (19.3-51.7) % [place] % (Auto) 13.2 H (4.7-12.5) % Eos % (Auto) 5.4 (0.7-5.8) Baso % (Auto) 0.5 (0.1-1.2) % Neut # (Auto) 4.94 (1.56-6.13) K/mm3 Lymph # (Auto) 0.42 L (1.18-3.74) K/mm3 [place] # (Auto) 0.88 H (0.24-0.36) K/mm3 Eos # (Auto) 0.36 (0.04-0.36) K/mm3 Baso # (Auto) 0.03 (0.01-0.08) K/mm3 Manual Slide Review Abnormal smear Sodium (136-145) mEq/L Potassium (3.5-5.1) mEq/L Chloride (98-107) mEq/L Carbon Dioxide (21-32) mEq/L Anion Gap (5-15) BUN (7-18) mg/dL Creatinine (0.55-1.02) mg/dL Est Cr Clr Drug Dosing mL/min Estimated GFR (MDRD) (>60) mL/min BUN/Creatinine Ratio (14-18) Glucose (83-115) mg/dL Calcium (8.5-10.1) mg/dL Magnesium (1.8-2.4) mg/dl Iron 82 (50-170) ug/dL TIBC 220 (100-400) ug/dL % Saturation 37 (20-55) % Transferrin 176 L (202-364) mg/dL Vitamin B12 388 (193-986) pg/ml Folate 29.5 (8.6-58.9) ng/mL Blood Type Gel Antibody Screen Crossmatch [place] Results Last 24 Hours: Microbiology 09/29/17 04:54 Urine Culture - Final Urine, Catheterized Escherichia Coli Med Orders - Current: Current Medications Acetaminophen (Tylenol) 650 mg PO Q4H PRN PRN Reason: Pain (Mild 1-3)/fever Hydrocodone Bitart/Acetaminophen ([place] 325-5 Mg) 1 tab PO Q4H PRN PRN Reason: Pain (moderate 4-6) Last Admin: 10/02/17 00:53 Dose: 1 tab Albuterol/Ipratropium (Duoneb 3.0-0.5 Mg/3 Ml) 3 ml NEB Q4H PRN PRN Reason: Shortness Of Breath/wheezing Bisacodyl (Dulcolax) 5 mg PO DAILY PRN PRN Reason: Constipation Calcium Carbonate (Calcium Carbonate/Vitamin D 600 Mg-200 Unit) 1 tab PO DAILY [facility] Last Admin: 10/02/17 08:45 Dose: 1 tab Docusate Sodium (Colace) 100 mg PO BID PRN PRN Reason: Constipation Enoxaparin Sodium (Lovenox) 30 mg SUBCUT Q24H [facility] Last Admin: 10/02/17 08:45 Dose: 30 mg Furosemide (Lasix) 20 mg PO DAILY [facility] Last Admin: 10/02/17 08:45 Dose: 20 mg Hydromorphone HCl (Dilaudid) 0.25 mg IVPUSH Q2H PRN PRN Reason: Pain (severe 7-10) Promethazine HCl 6.25 mg/ (Sodium Chloride) 50.25 mls @ 100 mls/hr IV Q6H PRN PRN Reason: Nausea/Vomiting Latanoprost (Xalatan 0.005% Ophth Soln) 0 ml EYEBOTH BID [facility] Last Admin: 10/02/17 08:45 Dose: 1 drop Levothyroxine Sodium (Synthroid) 88 mcg PO ACBREAKFAST [facility] Last Admin: 10/02/17 06:21 Dose: 88 mcg Lorazepam (Ativan) 0.25 mg IV Q6H PRN PRN Reason: Anxiety Losartan Potassium (Cozaar) 100 mg PO BEDTIME [facility] Last Admin: 10/01/17 21:40 Dose: 100 mg Magnesium Sulfate (Pharmacy To Dose - Magnesium Replacement) 1 dose .XX ASDIRECTED [facility] Metoprolol Succinate (Toprol Xl) 50 mg PO DAILY [facility] Last Admin: 10/02/17 08:44 Dose: 50 mg Naphazoline HCl/Zinc Sulfate (Clear Eyes Itchy Eye Rlf Drops) 0 ml EYEBOTH ASDIRECTED PRN PRN Reason: Dry Eyes Ondansetron HCl (Zofran) 4 mg IV Q6H PRN PRN Reason: Nausea/Vomiting Last Admin: 10/01/17 09:10 Dose: 4 mg Aspirin/Acetaminophen/Caffeine (Excedrin Extra Strength) 0 each PO Q6H PRN PRN Reason: Headache Last Admin: 09/30/17 22:36 Dose: 1 each Polyethylene Glycol (Miralax) 17 gm PO DAILY PRN PRN Reason: Constipation Last Admin: 10/02/17 06:21 Dose: 17 gm Potassium Chloride (Pharmacy To Dose - Potassium Replacement) 1 dose .XX ASDIRECTED [facility] Senna/Docusate Sodium (Senna Plus) 1 tab PO BID PRN PRN Reason: Constipation Temazepam (Restoril) 7.5 mg PO BEDTIME PRN PRN Reason: Sleep Timolol Maleate (Timoptic 0.5% [facility] Sol) 0 ml EYERT BID [facility] Last Admin: 10/02/17 08:45 Dose: 1 drop Vit A/Vit C/Vit E/Selen/Cu/Zn/Lutei (Icaps Mv) 1 tab PO DAILY [facility] Last Admin: 10/02/17 08:44 Dose: 1 tab Discontinued Medications Fentanyl (Sublimaze) 25 mcg IVPUSH Q2H PRN PRN Reason: Pain Last Admin: 09/29/17 06:49 Dose: 25 mcg Fentanyl (Sublimaze) 50 mcg IVPUSH ONETIME ONE Stop: 09/29/17 10:09 Last Admin: 09/29/17 10:13 Dose: 50 mcg Sodium Chloride (Normal Saline) 500 mls @ 1,000 mls/hr IV ONETIME ONE Stop: 09/29/17 06:52 Last Admin: 09/29/17 06:43 Dose: 1,000 mls/hr Sodium Chloride (Normal Saline) 250 mls @ 80 mls/hr IV ASDIRECTED [facility] Last Admin: 09/29/17 07:11 Dose: 80 mls/hr Ceftriaxone Sodium 2 gm/ (Sodium Chloride) 100 mls @ 100 mls/hr IV ONETIME ONE Stop: 09/29/17 09:29 Last Admin: 09/29/17 10:12 Dose: 100 mls/hr Sodium Chloride (Normal Saline) 1,000 mls @ [facility] Admin: 10/01/17 05:19 Dose: 50 mls/hr Ceftriaxone Sodium 1 gm/ (Dextrose/Water) 100 mls @ 200 mls/hr IV Q24H [facility] Stop: 10/01/17 12:00 Last Admin: 10/01/17 09:54 Dose: 200 mls/hr Sodium Ferric Gluconat/Sucrose (250 mg/ Sodium Chloride) 120 mls @ 60 mls/hr IV ONETIME ONE Stop: 09/30/17 21:59 Last Admin: 09/30/17 23:23 Dose: Not Given Sodium Ferric Gluconat/Sucrose (250 mg/ Sodium Chloride) 120 mls @ 60 mls/hr IV ONETIME ONE Stop: 10/01/17 09:59 Last Admin: 10/01/17 12:27 Dose: Not Given Sodium Ferric Gluconat/Sucrose (250 mg/ Sodium Chloride) 120 mls @ 60 mls/hr IV ONETIME ONE Stop: 10/01/17 11:59 Iopamidol (Isovue-370 (76%)) 100 ml IVPUSH ONETIME ONE Stop: 09/29/17 06:49 Last Admin: 09/29/17 07:09 Dose: 100 ml Magnesium Oxide (Magnesium Oxide) 800 mg PO ONETIME ONE Stop: 09/30/17 09:01 Last Admin: 09/30/17 09:23 Dose: 800 mg Magnesium Oxide (Magnesium Oxide) 800 mg PO ONETIME ONE Stop: 10/01/17 09:01 Last Admin: 10/01/17 09:59 Dose: 800 mg Non-Formulary Medication (Acetaminophen/Caffeine [Excedrin Tension Headache]) 250 mg PO DAILY PRN PRN Reason: Pain Aspirin/Acetaminophen/Caffeine (Excedrin Extra Strength) 0 each PO ONETIME PRN PRN Reason: Headache Sodium Chloride (Saline Flush) 10 ml FLUSH ONETIME PRN PRN Reason: IV FLUSH Last Admin: 09/29/17 07:11 Dose: 10 ml - Exam Quality Assessment: DVT Prophylaxis General: Alert, Oriented, Cooperative, No Acute Distress HEENT: Pupils Equal, Pupils Reactive, EOMI, Mucous Membr. Moist/[place] Neck: Supple, Trachea Midline Lungs: Clear to Auscultation, Normal Respiratory Effort Cardiovascular: Regular Rate, Regular Rhythm GI/Abdominal Exam: Normal Bowel Sounds, Soft, Non-Tender, No Organomegaly, No Distention, No Abnormal Bruit, No Mass, Pelvis Stable (Female) Exam: Deferred Back Exam: Normal Inspection, Decreased Range of Motion Extremities: Normal Inspection, Normal Range of Motion, Non-Tender, No Pedal Edema, Normal Capillary Refill Peripheral Pulses: 1+: Radial (L), Radial (R), Posterior Tibial (L), Posterior Tibial (R), Dorsalis Pedis (L), Dorsalis Pedis (R) Skin: Warm, Dry, Intact Neurological: No New Focal Deficit Psy/Mental Status: Alert, Normal Affect, Normal Mood - Problem List & Annotations (1) Anemia SNOMED Code(s): 996192833 Code(s): D64.9 - ANEMIA, UNSPECIFIED Status: Acute Priority: High Current Visit: Yes Qualifiers: Anemia type: unspecified type Qualified Code(s): D64.9 - Anemia, unspecified (2) Fall SNOMED Code(s): 7913493, 077487864 Code(s): W19.XXXA - UNSPECIFIED FALL, INITIAL ENCOUNTER Status: Acute Priority: High Current Visit: Yes Qualifiers: Encounter type: initial encounter Qualified Code(s): W19.XXXA - Unspecified fall, initial encounter (3) Foot fracture, right SNOMED Code(s): 73775726 Code(s): S92.901A - UNSP FRACTURE OF RIGHT FOOT, INIT ENCNTR FOR CLOSED FRACTURE Status: Acute Priority: High Current Visit: Yes Qualifiers: Encounter type: initial encounter Fracture type: closed Qualified Code(s) : S92.901A - Unspecified fracture of right foot, initial encounter for closed fracture (4) Hypoxia SNOMED Code(s): 228992299 Code(s): R09.02 - HYPOXEMIA Status: Acute Priority: High Current Visit : Yes (5) Pelvic fracture SNOMED Code(s): 82998928 Code(s): S32.9XXA - FRACTURE OF UNSP PARTS OF LUMBOSACRAL SPINE AND PELVIS, INIT Status: Acute Priority: High Current Visit: Yes Qualifiers: Encounter type: initial encounter Pelvic bone location: pubis Sublocation of pubis: unspecified portion of pubis Fracture type: closed Laterality: right Qualified Code(s): S32.501A - Unspecified fracture of right pubis, initial encounter for closed fracture (6) UTI (urinary tract infection) SNOMED Code(s): 21095429 Code(s): N39.0 - URINARY TRACT INFECTION, SITE NOT SPECIFIED Status: Acute Priority: High Current Visit: Yes Qualifiers: Urinary tract infection type: site unspecified Hematuria presence: without hematuria Qualified Code(s): N39.0 - Urinary tract infection, site not specified (7) Hypomagnesemia SNOMED Code(s): 510285019 Code(s): E83.42 - HYPOMAGNESEMIA Status: Acute Current Visit: Yes - Problem List Review Problem List Initiated/Reviewed/Updated: Yes - My Orders Last 24 Hours: My Active Orders 10/01/17 08:20 OCCULT BLOOD DIAGNOSTIC [OP] Routine 10/01/17 08:29 RED BLOOD CELLS LP [BBK] Routine Transfuse Red Blood Cells [COMM] Routine 10/01/17 08:30 Magnesium Rep Pharmacy to Dose [Pharmacy to Dose - Magnesium Replacement] 1 dose .XX ASDIRECTED Potassium Rep Pharmacy to Dose [Pharmacy to Dose - Potassium Replacement] 1 dose .XX ASDIRECTED 10/01/17 11:10 RT Incentive Spirometry [RC] ASDIRECTED 10/02/17 09:02 Consult to Physician [CONS] Routine 10/02/17 09:03 Notify Provider Consults [RC] ASDIRECTED 10/03/17 05:11 BASIC METABOLIC PANEL,BMP [CHEM] AM CBC WITH AUTO DIFF [HEME] AM MAGNESIUM [CHEM] AM 10/04/17 05:11 BASIC METABOLIC PANEL,BMP [CHEM] AM CBC WITH AUTO DIFF [HEME] AM MAGNESIUM [CHEM] AM 10/05/17 05:11 BASIC METABOLIC PANEL,BMP [CHEM] AM CBC WITH AUTO DIFF [HEME] AM MAGNESIUM [CHEM] AM 10/06/17 05:11 BASIC METABOLIC PANEL,BMP [CHEM] AM MAGNESIUM [CHEM] AM - Plan Plan:: Assessment/Plan: Acute: Stable Right Pelvic Ramus Fx (Inferior and Superior) - S/p Fall - Risk Factors: Osteoporosis, OA and Poor Vision - Conservative Management per Ortho - Dr. Barr following - PT/OT consult Non-displaced Fx 5th Proximal Metatarsal - S/p Fall - Risk Factors: Osteoporosis, OA and Poor Vision - Conservative Management per Ortho - can ambulate with stiff shoe - PT/OT Hypomagnesemia - Mg 1.7-->1.8 - 2/2 Inadequate intake - Replete and monitor - Will likely require supplementation at discharge Anemia -Hgb trending down since admission 11.1-->9.0-->8.3-->10.2 (post 1 unit)--> 9.4 -No known history of anemia -Stat CT scan of abdomen and pelvis shows nothing acute, no bleeding or hematoma -Has been receiving fluids -> stop for now -Type and screen -Will order 2 units PRBC - transfused one (10/01/17) and hold one -Occult stool - ordered -No obvious external bleeding/melena/hematochezia -Iron studies: WNL however slightly low transferrin, Normal B12, Normal Folate -Stop lovenox -Consulted Dr. Fraga - recommends no surgical needs, give blood if needed -Repeat H&H ordered for this afternoon Resolved: Hypomagnesemia - Mg 1.7-->1.8 - 2/2 Inadequate intake - Replete and monitor - Will likely require supplementation at discharge UTI, uncomplicated -UA positive for nitrite, moderate bacteria -Culture positive for E. Coli with multiple sensitivities -Asymptomatic -2gm rocephin given in ed --> decrease to 1gm -> completed treatment 10/01/17 S/p Fall - 2/2 Dizziness - BP stable, Not hypoglycemic - Did not trip over carpet or stuff - No complaints with vision S/p Dizziness - No hx/o abnormal rhythm - No hx/o autonomic dysfunction - EKG is normal rhythm - Telemetry and review BP medications Chronic: Glaucoma/Macular Degeneration CAD HTN HLD SOB-Intermittent Hypothyroidism GERD OA Osteoporosis Hx/o Finger Fx Hx/o Shoulder Blade Fx Headache Lymphoma Lung nodules - stable from prior exam Plan: Admit to [facility] with Tele Routine AM Labs Resume Home Meds High Fall Risks Ortho Consult PT/OT consult DVT prophylaxis: SCDs SW/CM for d/c planning--> will need rehab placement Code status: DNR/DNI; PCP: Dr. Bloom LOS >96 HR due to placement, need to investigate anemia further. Likely discharge 10/03/17
--- NOTE | 2017-10-02 11:05 | PCM.CONSN ---
- General Info Date of Service: 10/02/17 - Patient Data Vitals - Most Recent: Last Vital Signs Temp 97.7 F 10/02/17 03:36 Pulse 63 10/02/17 08:44 Resp 16 10/02/17 03:36 BP 137/54 L 10/02/17 08:44 Pulse Ox 95 10/02/17 11:00 Weight - Most Recent: 51.211 kg I&O - Last 24 Hours: Intake & Output 10/01/17 10/02/17 10/02/17 23:59 07:59 15:59 Intake Total 1000 250 380 Output Total 1850 500 Balance -850 -250 380 Lab Results Last 24 Hours: Laboratory Results - last 24 hr 09/29/17 10/01/17 10/02/17 Range/Units 05:50 15:45 05:45 WBC (3.98-10.04) K/mm3 RBC (3.98-5.22) M/mm3 Hgb 10.2 L (11.2-15.7) gm/L Hct 32.2 L (34.1-44.9) % MCV (79.4-94.8) fl MCH (25.6-32.2) pg MCHC (32.2-35.5) g/dl RDW Std Deviation (36.4-46.3) fL Plt Count (182-369) K/mm3 MPV (9.4-12.3) fl Neut % (Auto) (34.0-71.1) % Lymph % (Auto) (19.3-51.7) % [place] % (Auto) (4.7-12.5) % Eos % (Auto) (0.7-5.8) Baso % (Auto) (0.1-1.2) % Neut # (Auto) (1.56-6.13) K/mm3 Lymph # (Auto) (1.18-3.74) K/mm3 [place] # (Auto) (0.24-0.36) K/mm3 Eos # (Auto) (0.04-0.36) K/mm3 Baso # (Auto) (0.01-0.08) K/mm3 Manual Slide Review Sodium 134 L (136-145) mEq/L Potassium 4.1 (3.5-5.1) mEq/L Chloride 100 (98-107) mEq/L Carbon Dioxide 31 (21-32) mEq/L Anion Gap 7.1 (5-15) BUN 12 (7-18) mg/dL Creatinine 0.7 (0.55-1.02) mg/dL Est Cr Clr Drug Dosing 46.47 mL/min Estimated GFR (MDRD) > 60 (>60) mL/min BUN/Creatinine Ratio 17.1 (14-18) Glucose 88 (83-115) mg/dL Calcium 8.2 L (8.5-10.1) mg/dL Magnesium 1.8 (1.8-2.4) mg/dl Iron (50-170) ug/dL TIBC (100-400) ug/dL % Saturation (20-55) % Transferrin (202-364) mg/dL Vitamin B12 (193-986) pg/ml Folate (8.6-58.9) ng/mL Blood Type O NEGATIVE Gel Antibody Screen Negative Crossmatch See Detail 10/02/17 10/02/17 Range/Units 05:45 05:45 WBC 6.65 (3.98-10.04) K/mm3 RBC 3.13 L (3.98-5.22) M/mm3 Hgb 9.4 L (11.2-15.7) gm/L Hct 29.8 L (34.1-44.9) % MCV 95.2 H (79.4-94.8) fl MCH 30.0 (25.6-32.2) pg MCHC 31.5 L (32.2-35.5) g/dl RDW Std Deviation 46.6 H (36.4-46.3) fL Plt Count 121 L (182-369) K/mm3 MPV 9.8 (9.4-12.3) fl Neut % (Auto) 74.3 H (34.0-71.1) % Lymph % (Auto) 6.3 L (19.3-51.7) % [place] % (Auto) 13.2 H (4.7-12.5) % Eos % (Auto) 5.4 (0.7-5.8) Baso % (Auto) 0.5 (0.1-1.2) % Neut # (Auto) 4.94 (1.56-6.13) K/mm3 Lymph # (Auto) 0.42 L (1.18-3.74) K/mm3 [place] # (Auto) 0.88 H (0.24-0.36) K/mm3 Eos # (Auto) 0.36 (0.04-0.36) K/mm3 Baso # (Auto) 0.03 (0.01-0.08) K/mm3 Manual Slide Review Abnormal smear Sodium (136-145) mEq/L Potassium (3.5-5.1) mEq/L Chloride (98-107) mEq/L Carbon Dioxide (21-32) mEq/L Anion Gap (5-15) BUN (7-18) mg/dL Creatinine (0.55-1.02) mg/dL Est Cr Clr Drug Dosing mL/min Estimated GFR (MDRD) (>60) mL/min BUN/Creatinine Ratio (14-18) Glucose (83-115) mg/dL Calcium (8.5-10.1) mg/dL Magnesium (1.8-2.4) mg/dl Iron 82 (50-170) ug/dL TIBC 220 (100-400) ug/dL % Saturation 37 (20-55) % Transferrin 176 L (202-364) mg/dL Vitamin B12 388 (193-986) pg/ml Folate 29.5 (8.6-58.9) ng/mL Blood Type Gel Antibody Screen Crossmatch [place] Results Last 24 Hours: Microbiology 09/29/17 04:54 Urine Culture - Final Urine, Catheterized Escherichia Coli Med Orders - Current: Current Medications Acetaminophen (Tylenol) 650 mg PO Q4H PRN PRN Reason: Pain (Mild 1-3)/fever Hydrocodone Bitart/Acetaminophen ([place] 325-5 Mg) 1 tab PO Q4H PRN PRN Reason: Pain (moderate 4-6) Last Admin: 10/02/17 00:53 Dose: 1 tab Albuterol/Ipratropium (Duoneb 3.0-0.5 Mg/3 Ml) 3 ml NEB Q4H PRN PRN Reason: Shortness Of Breath/wheezing Bisacodyl (Dulcolax) 5 mg PO DAILY PRN PRN Reason: Constipation Calcium Carbonate (Calcium Carbonate/Vitamin D 600 Mg-200 Unit) 1 tab PO DAILY [facility] Last Admin: 10/02/17 08:45 Dose: 1 tab Docusate Sodium (Colace) 100 mg PO BID PRN PRN Reason: Constipation Enoxaparin Sodium (Lovenox) 30 mg SUBCUT Q24H [facility] Last Admin: 10/02/17 08:45 Dose: 30 mg Furosemide (Lasix) 20 mg PO DAILY [facility] Last Admin: 10/02/17 08:45 Dose: 20 mg Hydromorphone HCl (Dilaudid) 0.25 mg IVPUSH Q2H PRN PRN Reason: Pain (severe 7-10) Promethazine HCl 6.25 mg/ (Sodium Chloride) 50.25 mls @ 100 mls/hr IV Q6H PRN PRN Reason: Nausea/Vomiting Latanoprost (Xalatan 0.005% [facility]) 0 ml EYEBOTH BID [facility] Last Admin: 10/02/17 08:45 Dose: 1 drop Levothyroxine Sodium (Synthroid) 88 mcg PO ACBREAKFAST [facility] Last Admin: 10/02/17 06:21 Dose: 88 mcg Lorazepam (Ativan) 0.25 mg IV Q6H PRN PRN Reason: Anxiety Losartan Potassium (Cozaar) 100 mg PO BEDTIME [facility] Last Admin: 10/01/17 21:40 Dose: 100 mg Magnesium Sulfate (Pharmacy To Dose - Magnesium Replacement) 1 dose .XX ASDIRECTED [facility] Metoprolol Succinate (Toprol Xl) 50 mg PO DAILY [facility] Last Admin: 10/02/17 08:44 Dose: 50 mg Naphazoline HCl/Zinc Sulfate (Clear Eyes Itchy Eye Rlf Drops) 0 ml EYEBOTH ASDIRECTED PRN PRN Reason: Dry Eyes Ondansetron HCl (Zofran) 4 mg IV Q6H PRN PRN Reason: Nausea/Vomiting Last Admin: 10/01/17 09:10 Dose: 4 mg Aspirin/Acetaminophen/Caffeine (Excedrin Extra Strength) 0 each PO Q6H PRN PRN Reason: Headache Last Admin: 09/30/17 22:36 Dose: 1 each Polyethylene Glycol (Miralax) 17 gm PO DAILY PRN PRN Reason: Constipation Last Admin: 10/02/17 06:21 Dose: 17 gm Potassium Chloride (Pharmacy To Dose - Potassium Replacement) 1 dose .XX ASDIRECTED [facility] Senna/Docusate Sodium (Senna Plus) 1 tab PO BID PRN PRN Reason: Constipation Temazepam (Restoril) 7.5 mg PO BEDTIME PRN PRN Reason: Sleep Timolol Maleate (Timoptic 0.5% Ophth Soln) 0 ml EYERT BID [facility] Last Admin: 10/02/17 08:45 Dose: 1 drop Vit A/Vit C/Vit E/Selen/Cu/Zn/Lutei (Icaps Mv) 1 tab PO DAILY [facility] Last Admin: 10/02/17 08:44 Dose: 1 tab Discontinued Medications Fentanyl (Sublimaze) 25 mcg IVPUSH Q2H PRN PRN Reason: Pain Last Admin: 09/29/17 06:49 Dose: 25 mcg Fentanyl (Sublimaze) 50 mcg IVPUSH ONETIME ONE Stop: 09/29/17 10:09 Last Admin: 09/29/17 10:13 Dose: 50 mcg Sodium Chloride (Normal Saline) 500 mls @ 1,000 mls/hr IV ONETIME ONE Stop: 09/29/17 06:52 Last Admin: 09/29/17 06:43 Dose: 1,000 mls/hr Sodium Chloride (Normal Saline) 250 mls @ 80 mls/hr IV [facility] Last Admin: 09/29/17 07:11 Dose: 80 mls/hr Ceftriaxone Sodium 2 gm/ (Sodium Chloride) 100 mls @ 100 mls/hr IV ONETIME ONE Stop: 09/29/17 09:29 Last Admin: 09/29/17 10:12 Dose: 100 mls/hr Sodium Chloride (Normal Saline) 1,000 mls @ [facility] Admin: 10/01/17 05:19 Dose: 50 mls/hr Ceftriaxone Sodium 1 gm/ (Dextrose/Water) 100 mls @ 200 mls/hr IV Q24H [facility] Stop: 10/01/17 12:00 Last Admin: 10/01/17 09:54 Dose: 200 mls/hr Sodium Ferric Gluconat/Sucrose (250 mg/ Sodium Chloride) 120 mls @ 60 mls/hr IV ONETIME ONE Stop: 09/30/17 21:59 Last Admin: 09/30/17 23:23 Dose: Not Given Sodium Ferric Gluconat/Sucrose (250 mg/ Sodium Chloride) 120 mls @ 60 mls/hr IV ONETIME ONE Stop: 10/01/17 09:59 Last Admin: 10/01/17 12:27 Dose: Not Given Sodium Ferric Gluconat/Sucrose (250 mg/ Sodium Chloride) 120 mls @ 60 mls/hr IV ONETIME ONE Stop: 10/01/17 11:59 Iopamidol (Isovue-370 (76%)) 100 ml IVPUSH ONETIME ONE Stop: 09/29/17 06:49 Last Admin: 09/29/17 07:09 Dose: 100 ml Magnesium Oxide (Magnesium Oxide) 800 mg PO ONETIME ONE Stop: 09/30/17 09:01 Last Admin: 09/30/17 09:23 Dose: 800 mg Magnesium Oxide (Magnesium Oxide) 800 mg PO ONETIME ONE Stop: 10/01/17 09:01 Last Admin: 10/01/17 09:59 Dose: 800 mg Non-Formulary Medication (Acetaminophen/Caffeine [Excedrin Tension Headache]) 250 mg PO DAILY PRN PRN Reason: Pain Aspirin/Acetaminophen/Caffeine (Excedrin Extra Strength) 0 each PO ONETIME PRN PRN Reason: Headache Sodium Chloride (Saline Flush) 10 ml FLUSH ONETIME PRN PRN Reason: IV FLUSH Last Admin: 09/29/17 07:11 Dose: 10 ml Consult PN Assessment/Plan Procedures: Procedures ASSAY OF BLOOD OSMOLALITY (09/09/15) ASSAY OF CREATININE (12/30/14) ASSAY OF GGT (11/05/16) ASSAY OF LIPASE (11/04/16) ASSAY OF MAGNESIUM (11/04/16) ASSAY OF NATRIURETIC PEPTIDE (11/25/16) ASSAY OF SERUM SODIUM (09/09/15) ASSAY OF TRIGLYCERIDES (09/09/15) ASSAY OF TROPONIN QUANT (11/04/16) C-REACTIVE PROTEIN (11/05/16) CARDIOVASCULAR STRESS TEST (11/04/14) CHEST X-RAY 1 VIEW FRONTAL (11/04/16) CHEST X-RAY 2VW FRONTAL&LATL (09/09/15) COMPLETE CBC W/AUTO DIFF WBC (02/25/17) COMPREHEN METABOLIC PANEL (02/25/17) CT ABD & PELV W/CONTRAST (11/04/16) CT HEAD/BRAIN W/DYE (01/10/14) CT HEAD/BRAIN W/O DYE (07/19/15) CT SOFT TISSUE NECK W/DYE (08/14/15) CT THORAX W/DYE (11/04/16) CT UPPER EXTREMITY W/O DYE (09/20/15) ECHO EXAM OF ABDOMEN (11/05/16) ELECTROCARDIOGRAM TRACING (11/04/16) ELECTROLYTE PANEL (09/09/15) EMERGENCY DEPT VISIT (02/25/17) EMERGENCY DEPT VISIT (11/25/16) EMERGENCY DEPT VISIT (11/05/16) EMERGENCY DEPT VISIT (09/02/15) EMERGENCY DEPT VISIT (07/19/15) EXTREMITY STUDY (09/09/15) FIBRIN DEGRADATION QUANT (11/04/16) GAIT TRAINING THERAPY (09/09/15) HT MUSCLE IMAGE SPECT MULT (11/04/14) HYDRATE IV INFUSION ADD-ON (11/05/16) HYDRATION IV INFUSION INIT (02/25/17) METABOLIC PANEL TOTAL CA (09/09/15) OFFICE/OUTPATIENT VISIT EST (09/18/15) OT EVALUATION (09/09/15) PT EVALUATION (09/09/15) ROUTINE VENIPUNCTURE (02/25/17) SELF CARE MNGMENT TRAINING (09/09/15) THER/PROPH/DIAG INJ IV PUSH (11/25/16) THER/PROPH/DIAG IV INF INIT (11/05/16) THERAPEUTIC ACTIVITIES (09/09/15) THERAPEUTIC EXERCISES (09/09/15) TX/PRO/DX INJ NEW DRUG ADDON (11/25/16) TX/PRO/DX INJ SAME DRUG [employer] (11/05/16) URINALYSIS AUTO W/SCOPE (09/09/15) URINE CULTURE/COLONY COUNT (07/18/15) X-RAY EXAM OF SHOULDER (07/08/16) X-RAY EXAM OF SHOULDER (11/29/15) X-RAY EXAM OF SHOULDER (09/18/15) X-RAY EXAM OF SHOULDER BLADE (11/29/15) Problem List Initiated/Reviewed/Updated: Yes Plan: surgical consult dictated JULIANNE
[2017-10-02] MEDS: Ondansetron 4 MG/2 ML SDV IV PRN (12:04)
[2017-10-02] MEDS: Losartan 100 MG Tab PO SCH (21:12)
[2017-10-02] MEDS: CAFFEINE PO PRN (22:22)
[2017-10-02] MEDS: ASPIRIN PO PRN (22:22)
[2017-10-02] MEDS: ACETAMINOPHEN PO PRN (22:22)
[2017-10-03] MEDS ORDERED: Bisacodyl 10 MG Supp RECTAL ONE ×2 (01:01→01:27)
[2017-10-03] MEDS: Levothyroxine 88 MCG Tab PO SCH (05:51)
--- NOTE | 2017-10-03 07:54 | PCM.DCSUM1 ---
Discharge Summary - Hospital Course HPI Initial Comments: This is an 86 yo elderly white female with past medical hx/o Glaucoma/Macular Degeneration, CAD, HTN, HLD, SOB-Intermittent, Hypothyroidism, GERD, OA, Osteoporosis, Hx/o Finger Fx, Hx/o Shoulder Blade Fx, Headache, and Lymphoma not longer on chemo therapy who comes in for evaluation of right hip and foot pain. Patient reports 2 episode of falls; 1 last evening and the other was about early this morning on her way to the bathroom. She denies any prodromal syndromes but she fell and landed on her side. She denies losing consciousness, no bladder or bowel incontinence. After she fell, she reports pain in her hip and was unable to get up so she called her daughter and subsequently EMS was called for help.When EMS arrived to her home, she was found hypoxemic with an O2 sat of 86%. Her initial workup in emergency department shows a CBC remarkable for WBC of 13.6, RBC of 3.68, hemoglobin of 11.1, MCHC of 32.1, platelet of 158, MPV of 9.3 , neutrophils of 88.9%, lymphocytes of 2.6%, and eosinophils of 0.2%. Her chemistry is remarkable for BUN of 39, creatinine of 1.3, glucose of 118, magnesium of 1.7, AST of 39, proBNP of 6.6, and TSH of 4.469. Her initial troponin is less than 0.017. Her UA is not quite impressive for UTI but positive for nitrite and moderate amount of urine bacteria. Her CXR shows no acute abnormal findings. Thoracic spine x-ray report reads stable compression deformities of T8 and 11. Nothing acute is appreciated. Lumbar spine x-ray report reads nothing acute is appreciated. Hip x-ray report reads fractures within the inferior and superior pubic ramus to the right of the pubic symphysis. Non-displaced fracture within the base of the fifth metatarsal. Small navicular avulsion fracture. Ankle x-ray report reads non- displaced fracture within the proximal 5th metatarsal. Small cortical fracture off the dorsal navicular bone which may be acute. Chest and abdomen CT scan report reads nodules within the chest which appear fairly stable from previous scan. Cardiomegaly. Nothing acute is appreciated. Head CT scan report reads senescent change. Small opacity within the anterior left lobe and difficult to exclude foreign body. Nothing acute intra-cranial abnormalities seen. No acute skull abnormalities seen. Patient is being admitted for acute pelvic fracture and right proximal 5th metatarsal fracture. She is DNR/DNI. - Discharge Data Discharge Date: 10/03/17 (Admit date: 09/29/17) Discharge Disposition: DC/Tfer to SNF 03 Condition: Good - Discharge Diagnosis/Problem(s) (1) Anemia SNOMED Code(s): 342617254 ICD Code: D64.9 - ANEMIA, UNSPECIFIED Status: Acute Priority: High Current Visit: Yes Qualifiers: Anemia type: unspecified type Qualified Code(s): D64.9 - Anemia, unspecified (2) Fall SNOMED Code(s): 7591160, 192348958 ICD Code: W19.XXXA - UNSPECIFIED FALL, INITIAL ENCOUNTER Status: Acute Priority: High Current Visit: Yes Qualifiers: Encounter type: initial encounter Qualified Code(s): W19.XXXA - Unspecified fall, initial encounter (3) Foot fracture, right SNOMED Code(s): 94111263 ICD Code: S92.901A - UNSP FRACTURE OF RIGHT FOOT, INIT ENCNTR FOR CLOSED FRACTURE Status: Acute Priority: High Current Visit: Yes Qualifiers: Encounter type: initial encounter Fracture type: closed Qualified Code(s) : S92.901A - Unspecified fracture of right foot, initial encounter for closed fracture (4) Hypoxia SNOMED Code(s): 886808290 ICD Code: R09.02 - HYPOXEMIA Status: Acute Priority: High Current Visit : Yes (5) Pelvic fracture SNOMED Code(s): 48087809 ICD Code: S32.9XXA - FRACTURE OF UNSP PARTS OF LUMBOSACRAL SPINE AND PELVIS, INIT Status: Acute Priority: High Current Visit: Yes Qualifiers: Encounter type: initial encounter Pelvic bone location: pubis Sublocation of pubis: unspecified portion of pubis Fracture type: closed Laterality: right Qualified Code(s): S32.501A - Unspecified fracture of right pubis, initial encounter for closed fracture (6) UTI (urinary tract infection) SNOMED Code(s): 71292839 ICD Code: N39.0 - URINARY TRACT INFECTION, SITE NOT SPECIFIED Status: Acute Priority: High Current Visit: Yes Qualifiers: Urinary tract infection type: site unspecified Hematuria presence: without hematuria Qualified Code(s): N39.0 - Urinary tract infection, site not specified (7) Hypomagnesemia SNOMED Code(s): 702181557 ICD Code: E83.42 - HYPOMAGNESEMIA Status: Acute Current Visit: Yes (8) Weakness SNOMED Code(s): 60841311 ICD Code: R53.1 - WEAKNESS Status: Acute Priority: Medium Current Visit : Yes - Patient Summary/Data Consults: Consultations 09/29/17 11:56 Consult to Case Management [CONS] Routine Consult to Line Crew Supervisor [CONS] Routine Consult to Cook Pressure [CONS] Routine Consult to Spiritual Care [CONS] Routine OT Evaluation and Treatment [CONS] Routine PT Evaluation and Treatment [CONS] Routine Respiratory Care Assess and Treatment [CONS] Routine 09/29/17 22:44 Consult to Physician [CONS] Routine 10/02/17 09:02 Consult to Physician [CONS] Routine Labs Pending at D/C: None Recommended Follow-up Testing/Procedures: Follow-up with PCP within 7-10 days of discharge, sooner if needed. Recommend CBC at that time as she was anemic here. Follow-up with Dr. Barr within 14 days. Recommend workup for osteoporosis including possible DEXA scan at PCPs discretion. Hospital Course: Assessment/Plan: Acute: Stable Right Pelvic Ramus Fx (Inferior and Superior) - S/p Fall - Risk Factors: Osteoporosis, OA and Poor Vision - Conservative Management per Ortho - Dr. Barr following - PT/OT consult Non-displaced Fx 5th Proximal Metatarsal - S/p Fall - Risk Factors: Osteoporosis, OA and Poor Vision - Conservative Management per Ortho - can ambulate with stiff shoe - PT/OT Hypomagnesemia, stable - Mg 1.7-->1.8 - 2/2 Inadequate intake - Replete and monitor - Will likely need supplementation at discharge Anemia, improving -Hgb trending down since admission 11.1-->9.0-->8.3-->10.2 (post 1 unit)--> 9.4-->10.6-->10.3 -No known history of anemia -Stat CT scan of abdomen and pelvis shows nothing acute, no bleeding or hematoma -Has been receiving fluids -> stop for now -Type and screen -Will order 2 units PRBC - transfused one (10/01/17) and hold one -Occult stool - ordered -No obvious external bleeding/melena/hematochezia -Iron studies: WNL however slightly low transferrin, Normal B12, Normal Folate -Stop lovenox -Consulted Dr. Fraga - recommends no surgical needs, give blood if needed -Repeat H&H ordered for this afternoon -> improved Resolved: UTI, uncomplicated -UA positive for nitrite, moderate bacteria -Culture positive for E. Coli with multiple sensitivities -Asymptomatic -2gm rocephin given in ed --> decrease to 1gm -> completed treatment 10/01/17 S/p Fall - 2/ Dizziness - BP stable, Not hypoglycemic - Did not trip over carpet or stuff - No complaints with vision S/p Dizziness - No hx/o abnormal rhythm - No hx/o autonomic dysfunction - EKG is normal rhythm - Telemetry and review BP medications Chronic: Glaucoma/Macular Degeneration CAD HTN HLD SOB-Intermittent Hypothyroidism GERD OA Osteoporosis Hx/o Finger Fx Hx/o Shoulder Blade Fx Headache Lymphoma Lung nodules - stable from prior exam Plan: Admit to [facility] with Tele Routine AM Labs Resume Home Meds High Fall Risks Ortho Consult PT/OT consult DVT prophylaxis: SCDs SW/CM for d/c planning--> will need rehab placement Code status: DNR/DNI; PCP: Dr. Wolf Saavedra Sharlene did quite well. Dr. Barr saw her and recommended conservative care. He suggested 50% weight bearing with activity as tolerated. He was recommending a cam boot however she was unable to utilize this because it was too heavy. A surgical shoe did work and is now recommended. Her magnesium has been low or on the low side of normal. Will prescribe 7 days worth of supplementation. PCP can re-check this at followup. She was treated for a UTI and completed treatment with no complications. She denies any problems currently. She has been working with PT/OT. She is on oxygen and we have been attempting to wean. She may require it at the retirement. She became somewhat anemic while here, likely from a slow bleed around the broken pelvis. CT scan was obtained and showed nothing acute, no bleed or hematoma. Dr. Fraga was consulted and had no recommendations. She was transfused one unit and has been stable since. She reportedly has a longstanding history of very severe osteoporosis and we are recommending a DEXA scan and osteoporosis workup at the discretion of the PCP. She should follow-up with her PCP within 7-10 days of discharge. We recommend a CBC at that time to monitor her anemia. She should follow-up with Dr. Barr within 14 days of discharge. She will be discharged to [facility] today with a prescription for [place] for pain and magnesium supplementation. - Patient Instructions Diet: Heart Healthy Diet Activity: As Tolerated, Partial Weight Bearing (50%) Activity, Other: Surgical walking shoe on right foot for ambulation Driving: Do Not Drive Showering/Bathing: May Shower Notify Provider of: Fever, Increased Pain, Nausea and/or Vomiting - Discharge Plan Prescriptions/Med Rec: Acetaminophen/HYDROcodone [[place] 325-5 MG] 1 tab PO Q4H PRN #15 tablet PRN Reason: Pain (Moderate 4-6) Magnesium Oxide 400 mg PO DAILY #5 tablet Home Medications: Home Meds Levothyroxine [Synthroid] 88 mcg PO DAILY 11/11/14 [History] Lutein/Minerals/Vit A,C & E [Ocuvite] 1 tab PO DAILY 11/11/14 [History] Metoprolol Succinate [Toprol XL 50mg] 50 mg PO DAILY 11/11/14 [History] Timolol Maleate [Timoptic 0.5% Ophth Soln] 1 drop EYERT DAILY 07/19/15 [History] Losartan Potassium [Cozaar] 100 mg PO BEDTIME 07/21/15 [History] Ca Carbonate/Vitamin D3/Vit K [Calcium + D Soft Chewable Tab] 1 tab PO DAILY 03/04 [History] Bimatoprost [LUMIGAN 0.01% Ophth Soln] 1 drop EYEBOTH DAILY 02/25/17 [History] Aspirin/Acetaminophen/Caffeine [Migraine Formula Caplet] 1 tab PO Q6H PRN [History] Furosemide [Lasix] 20 mg PO DAILY 09/29/17 [History] Tetrahydrozoline HCl [Visine] 1 drop EYEBOTH ASDIRECTED PRN 09/29/17 [History] Acetaminophen/HYDROcodone [[place] 325-5 MG] 1 tab PO Q4H PRN #15 tablet 10/03/17 [Rx] Magnesium Oxide 400 mg PO DAILY #5 tablet 10/03/17 [Rx] Patient Handouts: Urinary Tract Infection, Adult, [id number], Simple Pelvic Fracture, Adult Referrals: Wilbert Bloom MD [Primary Care Provider] - - Discharge Summary/Plan Comment DC Time >30 min.: Yes (45 mins) - General Info Date of Service: 10/03/17 Admission Dx/Problem (Free Text: Admission Diagnosis/Problem Admission Diagnosis/Problem Hypoxia Subjective Update: In to see Sharlene. She is siting in the chair. No concerns. She only has pain with ambulation but has been working well with PT/OT. Nursing has no concerns. She is currently on oxygen and will be discharged to SNF on it if we are unable to wean. Functional Status: Reports: Pain Controlled, Tolerating Diet, Ambulating, Urinating. Denies: New Symptoms - Review of Systems General: Reports: Weakness (imroving ), Fatigue (improving ) HEENT: Reports: No Symptoms Pulmonary: Reports: No Symptoms. Denies: Shortness of Breath, Cough, Sputum, Wheezing Cardiovascular: Reports: No Symptoms. Denies: Chest Pain, Palpitations, Lightheadedness Gastrointestinal: Denies: Abdominal Pain, Constipation, Diarrhea, Nausea, Vomiting Genitourinary: Reports: No Symptoms Musculoskeletal: Reports: No Symptoms Skin: Reports: No Symptoms Neurological: Reports: No Symptoms Psychiatric: Reports: No Symptoms - Patient Data Vitals - Most Recent: Last Vital Signs Temp 97.9 F 10/03/17 02:09 Pulse 66 10/03/17 02:09 Resp 18 10/03/17 02:09 BP 126/72 10/03/17 02:09 Pulse Ox 92 L 10/03/17 02:09 Weight - Most Recent: 112 lb 14.4 oz I&O - Last 24 hours: Intake & Output 10/02/17 10/03/17 10/03/17 22:59 06:59 14:59 Intake Total 560 450 Output Total 1050 750 Balance -490 -300 Lab Results - Last 24 hrs: Laboratory Results - last 24 hr 09/29/17 10/02/17 10/02/17 Range/Units 05:50 05:45 05:45 WBC (3.98-10.04) K/mm3 RBC (3.98-5.22) M/mm3 Hgb (11.2-15.7) gm/L Hct (34.1-44.9) % MCV (79.4-94.8) fl MCH (25.6-32.2) pg MCHC (32.2-35.5) g/dl RDW Std Deviation (36.4-46.3) fL Plt Count (182-369) K/mm3 MPV (9.4-12.3) fl Neut % (Auto) (34.0-71.1) % Lymph % (Auto) (19.3-51.7) % [place] % (Auto) (4.7-12.5) % Eos % (Auto) (0.7-5.8) Baso % (Auto) (0.1-1.2) % Neut # (Auto) (1.56-6.13) K/mm3 Lymph # (Auto) (1.18-3.74) K/mm3 [place] # (Auto) (0.24-0.36) K/mm3 Eos # (Auto) (0.04-0.36) K/mm3 Baso # (Auto) (0.01-0.08) K/mm3 Manual Slide Review Abnormal smear Vitamin B12 388 (193-986) pg/ml Folate 29.5 (8.6-58.9) ng/mL Crossmatch See Detail 10/02/17 10/03/17 Range/Units 13:45 06:00 WBC 6.46 (3.98-10.04) K/mm3 RBC 3.48 L (3.98-5.22) M/mm3 Hgb 10.6 L 10.3 L (11.2-15.7) gm/L Hct 32.6 L 33.1 L (34.1-44.9) % MCV 95.1 H (79.4-94.8) fl MCH 29.6 (25.6-32.2) pg MCHC 31.1 L (32.2-35.5) g/dl RDW Std Deviation 45.2 (36.4-46.3) fL Plt Count 160 L (182-369) K/mm3 MPV 9.7 (9.4-12.3) fl Neut % (Auto) 77.2 H (34.0-71.1) % Lymph % (Auto) 4.3 L (19.3-51.7) % [place] % (Auto) 13.5 H (4.7-12.5) % Eos % (Auto) 4.5 (0.7-5.8) Baso % (Auto) 0.3 (0.1-1.2) % Neut # (Auto) 4.99 (1.56-6.13) K/mm3 Lymph # (Auto) 0.28 L (1.18-3.74) K/mm3 [place] # (Auto) 0.87 H (0.24-0.36) K/mm3 Eos # (Auto) 0.29 (0.04-0.36) K/mm3 Baso # (Auto) 0.02 (0.01-0.08) K/mm3 Manual Slide Review Vitamin B12 (193-986) pg/ml Folate (8.6-58.9) ng/mL Crossmatch [facility] Results - Last 24 hrs: Microbiology 10/03/17 04:20 Stool Occult Blood ([facility]) - Final Stool / Feces NEGATIVE OCCULT BLOOD Med Orders - Current: Current Medications Acetaminophen (Tylenol) 650 mg PO Q4H PRN PRN Reason: Pain (Mild 1-3)/fever Hydrocodone Bitart/Acetaminophen ([place] 325-5 Mg) 1 tab PO Q4H PRN PRN Reason: Pain (moderate 4-6) Last Admin: 10/02/17 14:01 Dose: 1 tab Albuterol/Ipratropium (Duoneb 3.0-0.5 Mg/3 Ml) 3 ml NEB Q4H PRN PRN Reason: Shortness Of Breath/wheezing Bisacodyl (Dulcolax) 5 mg PO DAILY PRN PRN Reason: Constipation Last Admin: 10/02/17 18:58 Dose: 5 mg Calcium Carbonate (Calcium Carbonate/Vitamin D 600 Mg-200 Unit) 1 tab PO DAILY [facility] Last Admin: 10/02/17 08:45 Dose: 1 tab Docusate Sodium (Colace) 100 mg PO BID PRN PRN Reason: Constipation Furosemide (Lasix) 20 mg PO DAILY [facility] Last Admin: 10/02/17 08:45 Dose: 20 mg Hydromorphone HCl (Dilaudid) 0.25 mg IVPUSH Q2H PRN PRN Reason: Pain (severe 7-10) Promethazine HCl 6.25 mg/ (Sodium Chloride) 50.25 mls @ 100 mls/hr IV Q6H PRN PRN Reason: Nausea/Vomiting Latanoprost (Xalatan 0.005% Ophth Soln) 0 ml EYEBOTH BID [facility] Last Admin: 10/02/17 21:15 Dose: 1 drop Levothyroxine Sodium (Synthroid) 88 mcg PO ACBREAKFAST [facility] Last Admin: 10/03/17 05:51 Dose: 88 mcg Lorazepam (Ativan) 0.25 mg IV Q6H PRN PRN Reason: Anxiety Losartan Potassium (Cozaar) 100 mg PO BEDTIME [facility] Last Admin: 10/02/17 21:12 Dose: 100 mg Magnesium Sulfate (Pharmacy To Dose - Magnesium Replacement) 1 dose .XX ASDIRECTED [facility] Metoprolol Succinate (Toprol Xl) 50 mg PO DAILY [facility] Last Admin: 10/02/17 08:44 Dose: 50 mg Naphazoline HCl/Zinc Sulfate (Clear Eyes Itchy Eye Rlf Drops) 0 ml EYEBOTH ASDIRECTED PRN PRN Reason: Dry Eyes Ondansetron HCl (Zofran) 4 mg IV Q6H PRN PRN Reason: Nausea/Vomiting Last Admin: 10/02/17 12:04 Dose: 4 mg Aspirin/Acetaminophen/Caffeine (Excedrin Extra Strength) 0 each PO Q6H PRN PRN Reason: Headache Last Admin: 10/02/17 22:22 Dose: 1 each Polyethylene Glycol (Miralax) 17 gm PO DAILY PRN PRN Reason: Constipation Last Admin: 10/02/17 06:21 Dose: 17 gm Potassium Chloride (Pharmacy To Dose - Potassium Replacement) 1 dose .XX ASDIRECTED [facility] Senna/Docusate Sodium (Senna Plus) 1 tab PO BID PRN PRN Reason: Constipation Temazepam (Restoril) 7.5 mg PO BEDTIME PRN PRN Reason: Sleep Timolol Maleate (Timoptic 0.5% Ophth Soln) 0 ml EYERT BID [facility] Last Admin: 10/02/17 21:15 Dose: 1 drop Vit A/Vit C/Vit E/Selen/Cu/Zn/Lutei (Icaps Mv) 1 tab PO DAILY [facility] Last Admin: 10/02/17 08:44 Dose: 1 tab Discontinued Medications Bisacodyl (Dulcolax) 10 mg RECTAL ONETIME ONE Stop: 10/03/17 01:02 Last Admin: 10/03/17 01:18 Dose: 10 mg Bisacodyl (Dulcolax) 10 mg RECTAL ONETIME ONE Stop: 10/03/17 01:28 Last Admin: 10/03/17 01:41 Dose: Not Given Enoxaparin Sodium (Lovenox) 30 mg SUBCUT Q24H [facility] Last Admin: 10/02/17 08:45 Dose: 30 mg Fentanyl (Sublimaze) 25 mcg IVPUSH Q2H PRN PRN Reason: Pain Last Admin: 09/29/17 06:49 Dose: 25 mcg Fentanyl (Sublimaze) 50 mcg IVPUSH ONETIME ONE Stop: 09/29/17 10:09 Last Admin: 09/29/17 10:13 Dose: 50 mcg Sodium Chloride (Normal Saline) 500 mls @ 1,000 mls/hr IV ONETIME ONE Stop: 09/29/17 06:52 Last Admin: 09/29/17 06:43 Dose: 1,000 mls/hr Sodium Chloride (Normal Saline) 250 mls @ [facility] Last Admin: 09/29/17 07:11 Dose: 80 mls/hr Ceftriaxone Sodium 2 gm/ (Sodium Chloride) 100 mls @ 100 mls/hr IV ONETIME ONE Stop: 09/29/17 09:29 Last Admin: 09/29/17 10:12 Dose: 100 mls/hr Sodium Chloride (Normal Saline) 1,000 mls @ 50 mls[facility]hr [facility] Last Admin: 10/01/17 05:19 Dose: 50 mls/hr Ceftriaxone Sodium 1 gm/ (Dextrose/Water) 100 mls @ 200 mls/hr IV Q24H [facility] Stop: 10/01/17 12:00 Last Admin: 10/01/17 09:54 Dose: 200 mls/hr Sodium Ferric Gluconat/Sucrose (250 mg/ Sodium Chloride) 120 mls @ 60 mls/hr IV ONETIME ONE Stop: 09/30/17 21:59 Last Admin: 09/30/17 23:23 Dose: Not Given Sodium Ferric Gluconat/Sucrose (250 mg/ Sodium Chloride) 120 mls @ 60 mls/hr IV ONETIME ONE Stop: 10/01/17 09:59 Last Admin: 10/01/17 12:27 Dose: Not Given Sodium Ferric Gluconat/Sucrose (250 mg/ Sodium Chloride) 120 mls @ 60 mls/hr IV ONETIME ONE Stop: 10/01/17 11:59 Iopamidol (Isovue-370 (76%)) 100 ml IVPUSH ONETIME ONE Stop: 09/29/17 06:49 Last Admin: 09/29/17 07:09 Dose: 100 ml Magnesium Oxide (Magnesium Oxide) 800 mg PO ONETIME ONE Stop: 09/30/17 09:01 Last Admin: 09/30/17 09:23 Dose: 800 mg Magnesium Oxide (Magnesium Oxide) 800 mg PO ONETIME ONE Stop: 10/01/17 09:01 Last Admin: 10/01/17 09:59 Dose: 800 mg Non-Formulary Medication (Acetaminophen/Caffeine [Excedrin Tension Headache]) 250 mg PO DAILY PRN PRN Reason: Pain Aspirin/Acetaminophen/Caffeine (Excedrin Extra Strength) 0 each PO ONETIME PRN PRN Reason: Headache Sodium Chloride (Saline Flush) 10 ml FLUSH ONETIME PRN PRN Reason: IV FLUSH Last Admin: 09/29/17 07:11 Dose: 10 ml - Exam Quality Assessment: Reports: Supplemental Oxygen (attempting to wean ), DVT Prophylaxis General: Reports: Alert, Oriented, Cooperative, No Acute Distress HEENT: Reports: Pupils Equal, Pupils Reactive, EOMI, Mucous Membr. Moist/[place] Neck: Reports: Supple, Trachea Midline, No JVD Lungs: Reports: Clear to Auscultation, Normal Respiratory Effort Cardiovascular: Reports: Regular Rate, Regular Rhythm GI/Abdominal Exam: Normal Bowel Sounds, Soft, Non-Tender, No Distention (Female) Exam: Deferred Rectal (Female) Exam: Deferred Back Exam: Reports: Normal Inspection, Full Range of Motion Extremities: Normal Inspection, Normal Range of Motion, Non-Tender, No Pedal Edema, Normal Capillary Refill Skin: Reports: Warm, Dry, Intact Neurological: Reports: No New Focal Deficit Psy/Mental Status: Reports: Alert, Normal Affect, Normal Mood
--- NOTE | 2017-10-03 07:55 | CONS ---
CONSULTING PHYSICIAN: Mauri Fraga MD DATE OF CONSULTATION: 10/02/2017 SURGICAL CONSULTATION HISTORY OF PRESENT ILLNESS: This is an 86-year-old, who came in on the , its Friday, status post a fall, complaining of right hip pain. She fell the day before, the evening. She fell asleep in a recliner, got up out of bed and fell. She is not sure why she fell and balanced, but there was no loss of consciousness. She was using a walker and then again fell backwards. Because of the pain, she was seen in the emergency room where x-rays demonstrated a pelvic fracture. She has a history of osteoporosis. Both the superior and inferior ramus adjacent to the pubic bone showed a fracture. I was asked to see the patient because her hemoglobin had dropped from the admission one of 9.0 to about 8.3. A unit of blood was given. The patient denies any loss of consciousness, weakness. She has pain in the hip. No sensorineural deficit. No nausea, vomiting, indigestion, bleeding, change in bowel habits, rectal bleeding, or vomiting. PAST MEDICAL HISTORY: Hypertension, gastroesophageal reflux disease, arthritis and osteoporosis, history of a fracture on both femurs, history of hypothyroidism, report of lymphoma. PAST SURGICAL HISTORY: Cholecystectomy, hysterectomy, salpingo-oophorectomy, ORIF of the hip. SOCIAL HISTORY: Negative. PHYSICAL EXAMINATION: GENERAL: Reveals very cooperative female. VITAL SIGNS: Temperature 98, pulse 75, respirations 19, blood pressure 137/53. EYES: Sclerae white. Extraocular muscle motion normal. ORAL CAVITY: Healthy mucous membrane with mouth and tongue. NECK: Supple. No nodes. No thyromegaly. Trachea midline. LUNGS: Clear. No rales, rhonchi, fremitus, dullness. HEART: Heart tones regular rate. ABDOMEN: Soft. No tenderness, guarding, rebound. EXTREMITIES: Upper extremities; no angulation or deformities. Lower extremities; some pain with palpation around the pubic bone and the ischial tuberosity and trochanter. No sensorineural deficit. Little swelling of the right leg. SKIN: Warm and dry. PSYCHIATRIC: Normal. ASSESSMENT: History of osteoporosis, fracture of the right inferior and superior pubic rami with a drop in hemoglobin. RECOMMENDATION: As per Orthopedics and Physical Therapy with respect in terms of treatment as per trauma guidelines. Transfuse as necessary. The drop in hemoglobin is likely due to bleeding around the fracture. CHANO /[id number]
[2017-10-03] MEDS: Calcium Carbonate/Vitamin D3 600 MG-200 Units Tab PO SCH (08:50)
[2017-10-03] MEDS: Metoprolol Succinate 50 MG Tab.ER PO SCH (08:50)
[2017-10-03] MEDS: Multivitamins with Minerals/Folic Acid/Lutein/Zeaxanth Tab PO SCH (08:50)
[2017-10-03] MEDS: Furosemide 20 MG Tab PO SCH (08:50)
[2017-10-03] MEDS: Latanoprost 0.005% Ophth Soln 2.5 ML Bottle EYEBOTH SCH (08:51)
[2017-10-03] MEDS: Timolol Maleate 0.5% Ophth Soln 5 ML Bottle EYERT SCH (08:51)
[2017-10-03 08:52] VITALS: BP 149/66
== END 2017-10-03 12:19 | DRG 536 ==
LOC: JD.ED 04:28 → JD.MS 10:28
PROVIDERS: ADMIT Internal Medicine; ATTEND Internal Medicine
PROC: 30233N1 Transfusion of Nonautologous Red Blood Cells into Peripheral Vein, Percutaneous Approach (ICD-10-PCS; principal; 2017-10-01)
DX: S32.810A Multiple fractures of pelvis with stable disruption of pelvic ring, initial encounter for closed fracture (principal); N39.0 Urinary tract infection, site not specified; C85.90 Non-Hodgkin lymphoma, unspecified, unspecified site; R09.02 Hypoxemia; D62 Acute posthemorrhagic anemia; S92.351A Displaced fracture of fifth metatarsal bone, right foot, initial encounter for closed fracture; E78.00 Pure hypercholesterolemia, unspecified; S92.251A Displaced fracture of navicular [scaphoid] of right foot, initial encounter for closed fracture; M43.8X4 Other specified deforming dorsopathies, thoracic region; E83.42 Hypomagnesemia; I25.10 Atherosclerotic heart disease of native coronary artery without angina pectoris; W18.30XA Fall on same level, unspecified, initial encounter; M81.0 Age-related osteoporosis without current pathological fracture; Z66 Do not resuscitate; Z88.8 Allergy status to other drugs, medicaments and biological substances; H40.9 Unspecified glaucoma; H35.30 Unspecified macular degeneration; I10 Essential (primary) hypertension; E78.5 Hyperlipidemia, unspecified; E03.9 Hypothyroidism, unspecified; R91.8 Other nonspecific abnormal finding of lung field; R51 Headache; K21.9 Gastro-esophageal reflux disease without esophagitis; Z91.81 History of falling; Z79.899 Other long term (current) drug therapy; Z79.82 Long term (current) use of aspirin; Z92.21 Personal history of antineoplastic chemotherapy; D63.8 Anemia in other chronic diseases classified elsewhere
CPT/HCPCS: 36415; 51702; 70450; 71045; 71260; 72072; 72100; 73502; 73610; 73630; 74177; 80053; 81001; 83735; 83880; 84439; 84443; 84484; 85025; 85610; 86850; 86900; 86901; 86922; 87086; 87088; 87186; 93005; 96361; 96365; 96375; 96376; 99285; J0696; J3010 ×3; J7030; J7040; J7050 ×3; Q9967; 36430; 74176; 74176-26; 80048; 82272; 82607; 82746; 83540; 84466; 85014; 85018; 94760; 97110-GO; 97110-GP; 97116-GP; 97162-GP; 97167-GO; 97530-GO; 97530-GP; 99222; 99231; 99232; 99239; A9270-GY; J1650; J2405; J7060; P9016

== ENCOUNTER 2017-12-03 21:31 | Emergency (ER) | payer MEDICARE, BC ==
[2017-12-03] MEDS ORDERED: Losartan 25 MG Tab PO ONE (22:20)
--- NOTE | 2017-12-03 22:25 | EDM.PDOC ---
ED HPI GENERAL MEDICAL PROBLEM - General Chief Complaint: Cardiovascular Problem Stated Complaint: HIGH BLOOD PRESSURE Time Seen by Provider: 12/03/17 21:49 Source of Information: Reports: Patient, Family History Limitations: Reports: Altered Mental Status (Daughter) - History of Present Illness INITIAL COMMENTS - FREE TEXT/NARRATIVE: Patient is a 87-year-old female presents emergency Department with hypertension. Patient has long-standing hypertension and has been taking her meds however today her blood pressure was not at its usual level. She saw the oncologist today, and in the office she was noted to have a pressure of around 170s systolic. Her normal pressure on a good day with taking her meds is around 1:30 systolic. She was instructed to go home and continue to monitor her pressure and to come to the emergency department if it continued to elevate. The daughter states that while at home they recorded a pressure that was 200 systolic so they came to the emergency department. Here on arrival her pressure was 196 systolic repeat pressure is 183 systolic and the last one was 173 systolic. Patient denies any complaints at this time no headache no chest pain no shortness of breath. She does say that she has shortness of breath chronically and she did have some earlier but none currently. No abdominal pain no diaphoresis nausea vomiting or diarrhea. Onset: Today, Gradual, Other (See history of present illness) Duration: Day(s): (1) Location: Reports: Other (See history of present illness) Quality: Reports: Other (See history of present illness) Severity: Severe (1 blood pressure at home was measured to be over 200 systolic. ) Improves with: Reports: Medication Worsens with: Reports: None Context: Reports: Other (See history of present illness) Associated Symptoms: Reports: No Other Symptoms. 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: NSAIDS Neck Pain Score (Numeric/FACES): 7 Headache Pain Score (Numeric/FACES): 2 - Related Data Allergies Allergy/AdvReac Type Severity Reaction Status Date / Time fluticasone Allergy Airway Verified 12/03/17 21:45 Tightness amlodipine AdvReac Headache Verified 12/03/17 21:45 Home Meds: Home Meds Levothyroxine [Synthroid] 88 mcg PO DAILY 11/11/14 [History] Lutein/Minerals/Vit A,C & E [Ocuvite] 1 tab PO DAILY 11/11/14 [History] Metoprolol Succinate [Toprol XL 50mg] 50 mg PO DAILY 11/11/14 [History] Timolol Maleate [Timoptic 0.5% Ophth Soln] 1 drop EYERT DAILY 07/19/15 [History] Losartan Potassium [Cozaar] 50 mg PO BEDTIME 07/21/15 [History] Bimatoprost [LUMIGAN 0.01% Ophth Soln] 1 drop EYEBOTH DAILY 02/25/17 [History] Aspirin/Acetaminophen/Caffeine [Migraine Formula Caplet] 1 tab PO Q6H PRN [History] Furosemide [Lasix] 20 mg PO DAILY 09/29/17 [History] Calcium Carb & Citrate/Vit D3 [Calcium + D3 ER Tablet] 1 tab PO DAILY 12/03/17 [ History] Carboxymethylcellulos/Glycerin [Refresh Optive Gel Eye Drops] 1 each EYEBOTH DAILY 12/03/17 [History] Denosumab [Prolia] 1 injection SQ ASDIRECTED 12/03/17 [History] Excedrin Extra Strength 12/03/17 [History] Past Medical History HEENT History: Reports: Glaucoma, Macular Degeneration Other HEENT History: 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, has upper and lower dentures Cardiovascular History: Reports: CAD, High Cholesterol, Hypertension Respiratory History: Reports: SOB Gastrointestinal History: Reports: GERD Genitourinary History: Reports: None 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: Musculoskeletal History: Reports: Arthritis, Fracture, Osteoporosis Other Musculoskeletal History: finger fracture, fractured shoulder blade Neurological History: Reports: Headaches, Chronic Psychiatric History: Reports: None Endocrine/Metabolic History: Reports: Hypothyroidism Hematologic History: Reports: None Immunologic History: Reports: None Oncologic (Cancer) History: Reports: Lymphoma Other Oncologic History: had radiation on throat-2008 Dermatologic History: Reports: None - Infectious Disease History Infectious Disease History: Reports: None - Past Surgical History HEENT Surgical History: Reports: Cataract Surgery, Eye Surgery, Tonsillectomy Other HEENT Surgeries/Procedures: shunt in L eye Cardiovascular Surgical History: Reports: Coronary Artery Stent GI Surgical History: Reports: Appendectomy, Cholecystectomy Female Surgical History: Reports: Hysterectomy, Salpingo-Oophorectomy Musculoskeletal Surgical History: Reports: ORIF, Other (See Below) Other Musculoskeletal Surgeries/Procedures:: rods placed in bilateral femurs Dermatological Surgical History: Reports: None Social & Family History - Family History Family Medical History: Noncontributory Cardiac: Reports: Pacemaker - Tobacco Use Smoking Status *Q: Never Smoker - Caffeine Use Caffeine Use: Reports: Coffee - Recreational Drug Use Recreational Drug Use: No - Living Situation & Occupation Living situation: Reports: , Alone Occupation: Retired ED ROS GENERAL - Review of Systems Review Of Systems: See Below Constitutional: Reports: No Symptoms HEENT: Reports: No Symptoms Respiratory: Reports: No Symptoms Cardiovascular: Reports: No Symptoms Endocrine: Reports: No Symptoms GI/Abdominal: Reports: No Symptoms : Reports: No Symptoms Musculoskeletal: Reports: No Symptoms Skin: Reports: No Symptoms Neurological: Reports: No Symptoms Psychiatric: Reports: No Symptoms Hematologic/Lymphatic: Reports: No Symptoms Immunologic: Reports: No Symptoms ED EXAM, GENERAL - Physical Exam Exam: See Below Exam Limited By: No Limitations General Appearance: Alert, WD/WN, No Apparent Distress Ears: Normal External Exam, Normal Canal, Hearing Grossly Normal, Normal TMs Ear Exam: Bilateral Ear: Auricle Normal, Canal Normal, TM normal Nose: Normal Inspection, Normal Mucosa, No Blood Throat/Mouth: Normal Inspection, Normal Lips, Normal Oropharynx, Normal Voice, No Airway Compromise Head: Atraumatic, Normocephalic Neck: Normal Inspection, Supple, Non-Tender Respiratory/Chest: No Respiratory Distress, Lungs Clear, Normal Breath Sounds, No Accessory Muscle Use, Chest Non-Tender Cardiovascular: Normal Peripheral Pulses, Regular Rate, Rhythm, No Edema, No Gallop, No JVD, No Murmur, No Rub GI/Abdominal: Normal Bowel Sounds, Soft, Non-Tender, No Organomegaly, No Distention, No Mass Back Exam: Normal Inspection, Full Range of Motion, NT Extremities: Normal Inspection, Normal Range of Motion, Non-Tender, Normal Capillary Refill, No Pedal Edema Neurological: Alert, Oriented, CN II-XII Intact, Normal Cognition Psychiatric: Normal Affect, Normal Mood Skin Exam: Warm, Dry, Intact, Normal Color, No Rash Course - Vital Signs Last Recorded V/S: Last Vital Signs Temp 98.3 F 12/03/17 21:40 Pulse 67 12/03/17 21:40 Resp 21 H 12/03/17 21:40 BP 153/69 H 12/03/17 22:35 Pulse Ox 94 L 07/18/18 21:40 - Orders/Labs/Meds Meds: Medications Discontinued Medications Generic Name Dose Route Start Last Admin Trade Name Denis PRN Reason Stop Dose Admin Losartan Potassium 25 mg 12/03/17 22:20 12/03/17 22:35 Cozaar PO 12/03/17 22:21 25 mg ONETIME ONE Administration Departure - Departure Time of Disposition: 22:41 Disposition: Home, Self-Care 01 Condition: Good Clinical Impression: Hypertension Qualifiers: Hypertension type: essential hypertension Qualified Code(s): I10 - Essential ( primary) hypertension Referrals: Wilbert Bloom MD [Primary Care Provider] - Forms: ED Department Discharge Additional Instructions: #1 continue to monitor blood pressure at home at least 3 times a day morning and noon and evening. Right the numbers in a book or note pad. #2. Follow up with your primary care physician. Take your daily blood pressure readings to the doctor. At that time your primary care physician may find the need to adjust your daily medications.
[2017-12-03 22:36] VITALS: BP 153/69
== END 2017-12-03 22:54 | disposition home or self-care (01) ==
LOC: JD.ED 21:31
DX: I10 Essential (primary) hypertension (principal); I25.810 Atherosclerosis of coronary artery bypass graft(s) without angina pectoris; E78.00 Pure hypercholesterolemia, unspecified; K21.9 Gastro-esophageal reflux disease without esophagitis; E03.9 Hypothyroidism, unspecified; Z88.8 Allergy status to other drugs, medicaments and biological substances; Z79.899 Other long term (current) drug therapy; Z79.82 Long term (current) use of aspirin
CPT/HCPCS: 99283; A9270

== ENCOUNTER 2020-01-17 06:55 | Inpatient (IN) | payer MEDICARE, BC ==
[2020-01-17] MEDS ORDERED: Sodium Chloride 0.9% 10 ML Syringe FLUSH PRN (07:19)
--- NOTE | 2020-01-17 08:09 | CR ---
Chest: 2 views of the chest were obtained. Comparison: Prior CT chest of 09/29/17. Prior chest x-ray of 09/29/17 is also available. Heart size slightly enlarged. Tortuous thoracic aorta is noted. Lung markings are increased which appear to be chronic. No acute parenchymal change is seen. Bony structures are osteopenic. Surgical clips are seen from previous cholecystectomy. Scoliosis is noted within the spine with scattered degenerative change. Impression: 1. Findings as noted above. 2. Nothing acute is definitely appreciated. Diagnostic code #2 This report was dictated in MDT
--- NOTE | 2020-01-17 08:10 | CR ---
Pelvis and left hip: AP view of the pelvis was obtained as well as AP and frog-leg lateral views left hip. Comparison: Prior pelvis study of 02/25/18. Intramedullary rods are noted within both hips. Mild joint space narrowing and slight femoral osteophytes are noted off the left hip. Bony structures are osteoporotic. Old fractures are noted within the inferior and superior right pubic ramus. Vascular calcification is noted. Impression: 1. Mild degenerative change within the left hip. 2. Old fractures within the right superior and inferior pubic ramus. 3. No definite acute abnormality is appreciated. Diagnostic code #2 This report was dictated in MDT
[2020-01-17] MEDS ORDERED: HYDROmorphone 0.5 MG/0.5 ML Syringe IVPUSH ONE (08:30)
--- NOTE | 2020-01-17 08:57 | EDM.PDOC ---
ED HPI GENERAL MEDICAL PROBLEM - General Chief Complaint: Chest Pain Stated Complaint: [facility] Time Seen by Provider: 01/17/20 07:02 Source of Information: Reports: Patient, EMS History Limitations: Reports: No Limitations - History of Present Illness INITIAL COMMENTS - FREE TEXT/NARRATIVE: The patient presents by [facility] for chest pain. This morning she stepped wrong and fell back hitting the wall and landing on her buttocks. She did not hit her head and she had no LOC. She then developed some mid chest pain. She has no shortness of breath with it. She does have pain upon palpation to her mid chest. She has a little pain to the left hip. She has no abdominal pain. She uses a walker to get around. She also has a post op shoe for her right foot. She has a toenail that curved under her toe that they are dealing with. Onset: Sudden Duration: Minutes: Location: Reports: Chest Quality: Reports: Sharp Severity: Moderate Improves with: Reports: Immobilization Worsens with: Reports: Other (palpation) Associated Symptoms: Reports: Chest Pain. Denies: Cough, Fever/Chills, Headaches, Nausea/Vomiting, Shortness of Breath Chest Pain Score (Numeric/FACES): 9 - Related Data Allergies Allergy/AdvReac Type Severity Reaction Status Date / Time fluticasone Allergy Airway Verified 01/17/20 07:03 Tightness amlodipine AdvReac Headache Verified 01/17/20 07:03 Home Meds: Home Meds Levothyroxine [Synthroid] 88 mcg PO DAILY 11/11/14 [History] Lutein/Minerals/Vit A,C & E [Ocuvite] 1 tab PO DAILY 11/11/14 [History] Metoprolol Succinate [Toprol XL 50mg] 50 mg PO DAILY 11/11/14 [History] timoloL maleate [Timoptic 0.5% Ophth Soln] 1 drop EYERT DAILY 07/19/15 [History] Losartan Potassium [Cozaar] 50 mg PO BEDTIME 07/21/15 [History] Bimatoprost [LUMIGAN 0.01% Ophth Soln] 1 drop EYEBOTH DAILY 02/25/17 [History] Aspirin/Acetaminophen/Caffeine [Migraine Formula Caplet] 1 tab PO Q6H PRN 09/29/17 [History] Furosemide [Lasix] 20 mg PO DAILY 09/29/17 [History] Calcium Carb, Citrate/Vit D3 [Calcium + D3 ER Tablet] 1 tab PO DAILY 12/03/17 [History] Carboxymethylcellulos/Glycerin [Refresh Optive Gel Eye Drops] 1 each EYEBOTH DAILY 12/03/17 [History] Denosumab [Prolia] 1 injection SQ ASDIRECTED 12/03/17 [History] Excedrin Extra Strength 12/03/17 [History] Past Medical History HEENT History: Reports: Glaucoma, Macular Degeneration Other HEENT History: 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, has upper and lower dentures Cardiovascular History: Reports: CAD, High Cholesterol, Hypertension Respiratory History: Reports: SOB Gastrointestinal History: Reports: GERD Genitourinary History: Reports: None 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: Musculoskeletal History: Reports: Arthritis, Fracture, Osteoporosis Other Musculoskeletal History: finger fracture, fractured shoulder blade Neurological History: Reports: Headaches, Chronic Psychiatric History: Reports: None Endocrine/Metabolic History: Reports: Hypothyroidism Hematologic History: Reports: None Immunologic History: Reports: None Oncologic (Cancer) History: Reports: Lymphoma Other Oncologic History: had radiation on -2008 Dermatologic History: Reports: None - Infectious Disease History Infectious Disease History: Reports: None - Past Surgical History HEENT Surgical History: Reports: Cataract Surgery, Eye Surgery, Tonsillectomy Other HEENT Surgeries/Procedures: shunt in L eye Cardiovascular Surgical History: Reports: Coronary Artery Stent GI Surgical History: Reports: Appendectomy, Cholecystectomy Female Surgical History: Reports: Hysterectomy, Salpingo-Oophorectomy Musculoskeletal Surgical History: Reports: ORIF, Other (See Below) Other Musculoskeletal Surgeries/Procedures:: rods placed in bilateral femurs Dermatological Surgical History: Reports: None Social & Family History - Family History Family Medical History: Noncontributory Cardiac: Reports: Pacemaker - Caffeine Use Caffeine Use: Reports: Coffee - Living Situation & Occupation Living situation: Reports: , Alone Occupation: Retired ED ROS GENERAL - Review of Systems Review Of Systems: See Below Constitutional: Reports: No Symptoms HEENT: Reports: No Symptoms Respiratory: Reports: No Symptoms Cardiovascular: Reports: Chest Pain Endocrine: Reports: No Symptoms GI/Abdominal: Reports: No Symptoms : Reports: No Symptoms Musculoskeletal: Reports: Other (Left hip pain) ED EXAM, GENERAL - Physical Exam Exam: See Below Exam Limited By: No Limitations General Appearance: Alert, No Apparent Distress Ears: Normal External Exam Nose: Normal Inspection Head: Atraumatic, Normocephalic Neck: Normal Inspection, Supple, Non-Tender Respiratory/Chest: No Respiratory Distress, Lungs Clear, Normal Breath Sounds, Other (Pain upon palpation to the left mid chest) Cardiovascular: Regular Rate, Rhythm, No Edema, No Murmur GI/Abdominal: Soft, Non-Tender, No Organomegaly, No Mass Back Exam: Normal Inspection Extremities: Other (Mild pain upon palpation to the left hip. Post op shoe on right foot) Neurological: Alert, Oriented, No Motor/Sensory Deficits EKG INTERPRETATION EKG Date: 01/17/20 Time: 08:12 Rhythm: NSR Rate (Beats/Min): 61 [place]: Normal P-Wave: Present QRS: Normal ST-T: Normal QT: Normal Course - Vital Signs Last Recorded V/S: Last Vital Signs Temp 97.7 F 01/17/20 07:03 Pulse 61 01/17/20 07:03 Resp 20 01/17/20 07:03 BP 210/82 H 01/17/20 07:03 Pulse Ox 94 L 01/17/20 07:03 - Orders/Labs/Meds Orders: Active Orders 24 hr Category Date Time Status Cardiac Monitoring [RC] . DIRECTED Care 01/17/20 07:19 Active EKG Documentation Completion [RC] STAT Care 01/17/20 07:20 Active Oxygen Therapy [RC] PRN Care 01/17/20 07:19 Active Peripheral IV Care [RC] . DIRECTED Care 01/17/20 07:20 Active ABG [BLOOD GAS ARTERIAL] [BG] Stat Lab 01/17/20 11:14 Ordered Sodium Chloride 0.9% [Saline Flush] Med 01/17/20 07:19 Active 10 ml FLUSH ASDIRECTED PRN Peripheral IV Insertion Adult [OM.PC] Stat Oth 01/17/20 07:19 Ordered Medication Orders Sodium Chloride (Saline Flush) 10 ml FLUSH ASDIRECTED PRN PRN Reason: Keep Vein Open Last Admin: 01/17/20 07:36 Dose: 10 ml Documented by: SU Labs: Laboratory Tests 01/17/20 01/17/20 Range/Units 07:57 07:57 WBC 6.13 (3.98-10.04) K/mm3 RBC 4.48 (3.98-5.22) M/mm3 Hgb 13.4 D (11.2-15.7) gm/dl Hct 42.6 (34.1-44.9) % MCV 95.1 H (79.4-94.8) fl MCH 29.9 (25.6-32.2) pg MCHC 31.5 L (32.2-35.5) g/dl RDW Std Deviation 45.1 (36.4-46.3) fL Plt Count 255 D (182-369) K/mm3 MPV 8.2 L (9.4-12.3) fl Neut % (Auto) 84.2 H (34.0-71.1) % Lymph % (Auto) 5.2 L (19.3-51.7) % [place] % (Auto) 8.6 (4.7-12.5) % Eos % (Auto) 0.7 (0.7-5.8) Baso % (Auto) 0.3 (0.1-1.2) % Neut # (Auto) 5.16 (1.56-6.13) K/mm3 Lymph # (Auto) 0.32 L (1.18-3.74) K/mm3 [place] # (Auto) 0.53 H (0.24-0.36) K/mm3 Eos # (Auto) 0.04 (0.04-0.36) K/mm3 Baso # (Auto) 0.02 (0.01-0.08) K/mm3 Manual Slide Review Abnormal smear Sodium 130 L (136-145) mEq/L Potassium 5.3 H (3.5-5.1) mEq/L Chloride 93 L (98-107) mEq/L Carbon Dioxide 33 H (21-32) mEq/L Anion Gap 9.3 (5-15) BUN 22 H (7-18) mg/dL Creatinine 1.1 H (0.55-1.02) mg/dL Est Cr Clr Drug Dosing TNP Estimated GFR (MDRD) 47 (>60) mL/min BUN/Creatinine Ratio 20.0 H (14-18) Glucose 101 (83-115) mg/dL Calcium 9.2 (8.5-10.1) mg/dL Total Bilirubin 0.2 (0.2-1.0) mg/dL AST 34 (15-37) U/L ALT 18 (14-59) U/L Alkaline Phosphatase 73 (46-116) U/L Troponin I < 0.017 (0.00-0.056) ng/mL Total Protein 7.1 (6.4-8.2) g/dl Albumin 3.2 L (3.4-5.0) g/dl Globulin 3.9 gm/dL Albumin/Globulin Ratio 0.8 L (1-2) Meds: Medications Generic Name Dose Route Start Last Admin Trade Name Freq PRN Reason Stop Dose Admin Sodium Chloride 10 ml 01/17/20 07:19 01/17/20 07:36 Saline Flush FLUSH 10 ml ASDIRECTED PRN Administration Keep Vein Open Discontinued Medications Generic Name Dose Route Start Last Admin Trade Name Freq PRN Reason Stop Dose Admin Hydromorphone HCl 0.25 mg 01/17/20 08:30 01/17/20 09:10 Dilaudid IVPUSH 01/17/20 08:31 0.25 mg ONETIME ONE Administration - Re-Assessments/Exams Free Text/Narrative Re-Assessment/Exam: 01/17/20 08:55 I ordered an IV saline lock, dilaudid 0.25mg IV, labs, CXR, and EKG. Her EKG shows a NSR with no acute changes. Her CXR shows nothing acute is definitely appreciated. Her hip x-ray shows mild degenerative change within the left hip. Old fractures within the right superior and inferior pubic ramus. No definite acute abnormality is appreciated. 01/17/20 11:56 I took the oxygen off and her oxygen saturations went down to the 70s. She recovered nicely with just 2 liters. She does not want to take a deep breath because of the pain. I feel she needs to be admitted. I called Dr Duncan and she agreed to the admission. Departure - Departure Time of Disposition: 12:00 Disposition: Admitted As Inpatient 67 Condition: Fair Clinical Impression: Hypoxia, Chest wall pain Fall Qualifiers: Encounter type: initial encounter Qualified Code(s): W19.XXXA - Unspecified fall, initial encounter Sepsis Event Note (ED) - Evaluation Sepsis Screening Result: No Definite Risk - Focused Exam Vital Signs: Vital Signs Temp Pulse Resp BP Pulse Ox 01/17/20 07:03 97.7 F 61 20 210/82 H 94 L - My Orders Last 24 Hours: My Active Orders 01/17/20 07:19 Cardiac Monitoring [RC] . DIRECTED Oxygen Therapy [RC] PRN Sodium Chloride 0.9% [Saline Flush] 10 ml FLUSH ASDIRECTED PRN Peripheral IV Insertion Adult [OM.PC] Stat 01/17/20 07:20 EKG Documentation Completion [RC] STAT Peripheral IV Care [RC] . DIRECTED 01/17/20 11:14 ABG [BLOOD GAS ARTERIAL] [BG] Stat - Assessment/Plan Last 24 Hours: My Active Orders 01/17/20 07:19 Cardiac Monitoring [RC] . DIRECTED Oxygen Therapy [RC] PRN Sodium Chloride 0.9% [Saline Flush] 10 ml FLUSH ASDIRECTED PRN Peripheral IV Insertion Adult [OM.PC] Stat 01/17/20 07:20 EKG Documentation Completion [RC] STAT Peripheral IV Care [RC] . DIRECTED 01/17/20 11:14 ABG [BLOOD GAS ARTERIAL] [BG] Stat
--- NOTE | 2020-01-17 11:40 | PCM.HP.2 ---
H&P History of Present Illness - General Date of Service: 01/17/20 Admit Problem/Dx: Admission Diagnosis/Problem Admission Diagnosis/Problem Hypoxia Source of Information: Patient, Old Records, Provider, RN, RN Notes Reviewed History Limitations: Reports: No Limitations - History of Present Illness Initial Comments - Free Text/Narative: This is an 89-year-old female who presents to ED via [place] [facility] after a fall resulting in chest pain. She reports that she was walking with her walker, misstepped and fell backwards landing on her buttocks. Denies hitting her head or losing consciousness. She states she then developed back pain which turned into chest pain. Denies shortness of breath. She also reports mild left hip pain. Does have a history of a prior pelvic fracture. She does have a postop shoe present on her foot. She reports that they have been dealing with a ingrown toenail there. In the ED she was afebrile. Pulse was 61. Respirations 20. Blood pressure was high at 210/82. Pulse ox 94% on room air. Twelve-lead EKG was obtained showing a sinus rhythm at 61 bpm with no ectopy. CBC is grossly normal. CMP shows a mildly low sodium of 130, although in reviewing prior records it appears she is usually hyponatremic. Potassium is slightly elevated at 5.3. Creatinine is slightly elevated 1.1 BUN is 22. GFR is 47. Troponin is negative. She is given 0.25 Dilaudid for pain. Chest x-ray is obtained showing nothing acute. Hip x-rays obtained showing mild degenerative change within the left hip. An old fracture within the right superior and inferior pubic rami is noted but nothing acute. In the ED she was requiring oxygen 2 L. ABG is pending. 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 She is a non-smoker. PCP is Dr. Bloom. She subsequently admitted to the medical floor observation status for pain control and further work-up/treatment of her hypoxia. Chest Pain Score (Numeric/FACES): 9 - Related Data Allergies/Adverse Reactions: Allergies Allergy/AdvReac Type Severity Reaction Status Date / Time fluticasone Allergy Airway Verified 01/17/20 13:18 Tightness amlodipine AdvReac Headache Verified 01/17/20 13:18 Home Medications: Home Meds Levothyroxine [Synthroid] 100 mcg PO DAILY 11/11/14 [History] Lutein/Minerals/Vit A,C & E [Ocuvite] 1 tab PO 2100 11/11/14 [History] Metoprolol Succinate [Toprol XL 50mg] 50 mg PO DAILY 11/11/14 [History] timoloL maleate [Timoptic 0.5% Ophth Soln] 1 drop EYEBOTH BID 07/19/15 [History] Losartan Potassium [Cozaar] 100 mg PO DAILY 07/21/15 [History] Bimatoprost [LUMIGAN 0.01% Ophth Soln] 1 drop EYEBOTH BID 02/25/17 [History] Furosemide [Lasix] 20 mg PO DAILY 09/29/17 [History] Calcium Carb, Citrate/Vit D3 [Calcium + D3 ER Tablet] 1 tab PO DAILY 12/03/17 [History] Carboxymethylcellulos/Glycerin [Refresh Optive Gel Eye Drops] 1 each EYEBOTH DAILY 12/03/17 [History] Denosumab [Prolia] 1 injection SQ ASDIRECTED 12/03/17 [History] Excedrin Extra Strength 1 tab PO Q6HR 12/03/17 [History] Spironolactone 50 mg PO DAILY 01/17/20 [History] Past Medical History HEENT History: Reports: Glaucoma, Macular Degeneration Other HEENT History: 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, has upper and lower dentures Cardiovascular History: Reports: CAD, High Cholesterol, Hypertension Respiratory History: Reports: SOB Gastrointestinal History: Reports: GERD Genitourinary History: Reports: None [employer] History: Reports: Musculoskeletal History: Reports: Arthritis, Fracture, Osteoporosis Other Musculoskeletal History: finger fracture, fractured shoulder blade Neurological History: Reports: Headaches, Chronic Psychiatric History: Reports: None Endocrine/Metabolic History: Reports: Hypothyroidism Hematologic History: Reports: None Immunologic History: Reports: None Oncologic (Cancer) History: Reports: Lymphoma Other Oncologic History: had radiation on throat-2008 Dermatologic History: Reports: None - Infectious Disease History Infectious Disease History: Reports: Chicken Pox, Measles, Mumps, Rheumatic Fever - Past Surgical History HEENT Surgical History: Reports: Cataract Surgery, Eye Surgery, Tonsillectomy Other HEENT Surgeries/Procedures: shunt in L eye Cardiovascular Surgical History: Reports: Coronary Artery Stent GI Surgical History: Reports: Appendectomy, Cholecystectomy Female Surgical History: Reports: Hysterectomy, Salpingo-Oophorectomy Musculoskeletal Surgical History: Reports: ORIF, Other (See Below) Other Musculoskeletal Surgeries/Procedures:: rods placed in bilateral femurs Dermatological Surgical History: Reports: None Social & Family History - Family History Family Medical History: Noncontributory Cardiac: Reports: Pacemaker - Tobacco Use Smoking Status *Q: Never Smoker Second Hand Smoke Exposure: No - Caffeine Use Caffeine Use: Reports: Coffee - Recreational Drug Use Recreational Drug Use: No - Living Situation & Occupation Living situation: Reports: , Alone Occupation: Retired H&P Review of Systems - Review of Systems: Review Of Systems: See Below General: Reports: No Symptoms. Denies: Fever, Chills, Malaise, Weakness, Fatigue HEENT: Reports: No Symptoms. Denies: Headaches, Sore Throat Pulmonary: Reports: No Symptoms. Denies: Shortness of Breath, Wheezing, Cough, Sputum Cardiovascular: Reports: No Symptoms, Chest Pain. Denies: Palpitations, Dyspnea on Exertion, Edema, Lightheadedness Gastrointestinal: Reports: No Symptoms. Denies: Abdominal Pain, Constipation, N ausea, Vomiting Genitourinary: Reports: No Symptoms Musculoskeletal: Reports: Neck Pain, Back Pain, Joint Pain (Left hip ) Skin: Reports: No Symptoms. Denies: Cyanosis Psychiatric: Reports: No Symptoms. Denies: Confusion Neurological: Reports: No Symptoms, Difficulty Walking (utilizes walker at baseline ). Denies: Confusion, Dizziness, Headache, Numbness, Seizure, Syncope, Tingling, Tremors, Trouble Speaking, Weakness, Change in Speech, Gait Disturbance Hematologic/Lymphatic: Reports: No Symptoms Immunologic: Reports: No Symptoms Exam - Exam Exam: See Below - Vital Signs Vital Signs: Last Vital Signs Temp 97.7 F 01/17/20 07:03 Pulse 61 01/17/20 07:03 Resp 20 01/17/20 07:03 BP 210/82 H 01/17/20 07:03 Pulse Ox 94 L 01/17/20 07:03 Weight: 88 lb - Exam Quality Assessment: Supplemental Oxygen (2L), DVT Prophylaxis General: Alert, Oriented, Cooperative HEENT: Conjunctiva Clear, EACs Clear, Hearing Intact, Mucosa Moist & [place], Posterior Pharynx Clear Neck: Supple, Trachea Midline Lungs: Clear to Auscultation, Normal Respiratory Effort, Other (Reducible pain while palpating ribs of left and right chest) Cardiovascular: Regular Rate, Regular Rhythm GI/Abdominal Exam: Normal Bowel Sounds, Soft, Non-Tender, No Distention (Female) Exam: Deferred Rectal (Female) Exam: Deferred Back Exam: Normal Inspection, Decreased Range of Motion, Other (Difficult to sit-up due to chest/back pain. Severe kyphosis ) Extremities: Normal Inspection, Normal Range of Motion, Non-Tender, No Pedal Edema, Other (Pain to left hip. Post-op shoe on right foot ) Skin: Warm, Dry, Intact Neurological: Cranial Nerves Intact (Grossly ) Neuro Extensive - Mental Status: Alert, Oriented x3, Normal Mood/Affect - Patient Data Lab Results Last 24 hrs: Laboratory Results - last 24 hr 01/17/20 01/17/20 Range/Units 07:57 07:57 WBC 6.13 (3.98-10.04) K/mm3 RBC 4.48 (3.98-5.22) M/mm3 Hgb 13.4 D (11.2-15.7) gm/dl Hct 42.6 (34.1-44.9) % MCV 95.1 H (79.4-94.8) fl MCH 29.9 (25.6-32.2) pg MCHC 31.5 L (32.2-35.5) g/dl RDW Std Deviation 45.1 (36.4-46.3) fL Plt Count 255 D (182-369) K/mm3 MPV 8.2 L (9.4-12.3) fl Neut % (Auto) 84.2 H (34.0-71.1) % Lymph % (Auto) 5.2 L (19.3-51.7) % [place] % (Auto) 8.6 (4.7-12.5) % Eos % (Auto) 0.7 (0.7-5.8) Baso % (Auto) 0.3 (0.1-1.2) % Neut # (Auto) 5.16 (1.56-6.13) K/mm3 Lymph # (Auto) 0.32 L (1.18-3.74) K/mm3 [place] # (Auto) 0.53 H (0.24-0.36) K/mm3 Eos # (Auto) 0.04 (0.04-0.36) K/mm3 Baso # (Auto) 0.02 (0.01-0.08) K/mm3 Manual Slide Review Abnormal smear Sodium 130 L (136-145) mEq/L Potassium 5.3 H (3.5-5.1) mEq/L Chloride 93 L (98-107) mEq/L Carbon Dioxide 33 H (21-32) mEq/L Anion Gap 9.3 (5-15) BUN 22 H (7-18) mg/dL Creatinine 1.1 H (0.55-1.02) mg/dL Est Cr Clr Drug Dosing TNP Estimated GFR (MDRD) 47 (>60) mL/min BUN/Creatinine Ratio 20.0 H (14-18) Glucose 101 (83-115) mg/dL Calcium 9.2 (8.5-10.1) mg/dL Total Bilirubin 0.2 (0.2-1.0) mg/dL AST 34 (15-37) U/L ALT 18 (14-59) U/L Alkaline Phosphatase 73 (46-116) U/L Troponin I < 0.017 (0.00-0.056) ng/mL Total Protein 7.1 (6.4-8.2) g/dl Albumin 3.2 L (3.4-5.0) g/dl Globulin 3.9 gm/dL Albumin/Globulin Ratio 0.8 L (1-2) Result Diagrams: 01/17/20 07:57 01/18/20 05:38 Sepsis Event Note - Evaluation Sepsis Screening Result: No Definite Risk - Focused Exam Vital Signs: Vital Signs Temp Pulse Resp BP Pulse Ox 01/17/20 07:03 97.7 F 61 20 210/82 H 94 L - Problem List (1) Glaucoma SNOMED Code(s): 90674161 ICD Code: H40.9 - UNSPECIFIED GLAUCOMA Status: Chronic Priority: Low Current Visit: No Qualifiers: Glaucoma type: unspecified Laterality: unspecified laterality Qualified Code(s): H40.9 - Unspecified glaucoma (2) Macular degeneration SNOMED Code(s): 617564300 ICD Code: H35.30 - UNSPECIFIED MACULAR DEGENERATION Status: Chronic Priority: Low Current Visit: No Qualifiers: Macular degeneration type: unspecified type Eye laterality: unspecified Qualified Code(s): H35.30 - Unspecified macular degeneration (3) CAD (coronary artery disease) SNOMED Code(s): 90097767 ICD Code: I25.10 - ATHSCL HEART DISEASE OF [place] CORONARY ARTERY W/O ANG PCTRS Status: Chronic Priority: Low Current Visit: No Qualifiers: Coronary Disease-Associated Artery/Lesion type: unspecified vessel or lesion type [place] vs. transplanted heart: unspecified whether [place] or transplanted heart Associated angina: angina presence unspecified Qualified Code(s): I25.10 - Atherosclerotic heart disease of [place] coronary artery without angina pectoris (4) HLD (hyperlipidemia) SNOMED Code(s): 23349336 ICD Code: E78.5 - HYPERLIPIDEMIA, UNSPECIFIED Status: Chronic Priority: Low Current Visit: No Qualifiers: Hyperlipidemia type: unspecified Qualified Code(s): E78.5 - Hyperlipidemia, unspecified (5) GERD (gastroesophageal reflux disease) SNOMED Code(s): 672093104 ICD Code: K21.9 - GASTRO-ESOPHAGEAL REFLUX DISEASE WITHOUT ESOPHAGITIS Status: Chronic Priority: Low Current Visit: No Qualifiers: Esophagitis presence: esophagitis presence not specified Qualified Code(s): K21.9 - Gastro-esophageal reflux disease without esophagitis (6) Arthritis SNOMED Code(s): 3164544 ICD Code: M19.90 - UNSPECIFIED OSTEOARTHRITIS, UNSPECIFIED SITE Status: Chronic Priority: Low Current Visit: No (7) Osteoporosis SNOMED Code(s): 94669593 ICD Code: M81.0 - AGE-RELATED OSTEOPOROSIS W/O CURRENT PATHOLOGICAL FRACTURE Status: Chronic Priority: Low Current Visit: No Qualifiers: Osteoporosis type: unspecified Presence of current pathological fracture: unspecified Qualified Code(s): M81.0 - Age-related osteoporosis without current pathological fracture (8) Chronic headache SNOMED Code(s): 955626668 ICD Code: R51 - HEADACHE Status: Chronic Priority: Low Current Visit: No Qualifiers: Headache type: unspecified Intractability: not intractable Qualified Code(s): R51 - Headache (9) Hypothyroidism SNOMED Code(s): 03997409 ICD Code: E03.9 - HYPOTHYROIDISM, UNSPECIFIED Status: Chronic Priority: Low Current Visit: No Qualifiers: Hypothyroidism type: unspecified Qualified Code(s): E03.9 - Hypothyroidism, unspecified (10) Chest wall pain SNOMED Code(s): 145147182 ICD Code: R07.89 - OTHER CHEST PAIN Status: Acute Priority: High Current Visit: Yes (11) Fall SNOMED Code(s): 8886164, 192932475 ICD Code: W19.XXXA - UNSPECIFIED FALL, INITIAL ENCOUNTER Status: Acute Priority: High Current Visit: Yes Qualifiers: Encounter type: initial encounter Qualified Code(s): W19.XXXA - Unspecified fall, initial encounter (12) Hypoxia SNOMED Code(s): 506031025 ICD Code: R09.02 - HYPOXEMIA Status: Acute Priority: High Current Visit: Yes (13) Hypertension SNOMED Code(s): 05079109 ICD Code: I10 - ESSENTIAL (PRIMARY) HYPERTENSION Status: Chronic Priority: Low Current Visit: No Qualifiers: Hypertension type: essential hypertension Qualified Code(s): I10 - Essential (primary) hypertension (14) Lymphoma SNOMED Code(s): 069155784 ICD Code: C85.90 - NON-HODGKIN LYMPHOMA, UNSPECIFIED, UNSPECIFIED SITE Status: Chronic Priority: Low Current Visit: No Qualifiers: Lymphoma type: unspecified type Lymphoma site: intra-abdominal nodes Qualified Code(s): C85.93 - Non-Hodgkin lymphoma, unspecified, intra-abdominal lymph nodes (15) Back pain SNOMED Code(s): 640691850 ICD Code: M54.9 - DORSALGIA, UNSPECIFIED Status: Acute Priority: High Current Visit: Yes Qualifiers: Back pain location: back pain in unspecified location Chronicity: unspe cified Back pain laterality: unspecified Qualified Code(s): M54.9 - Dorsalgia, unspecified Problem List Initiated/Reviewed/Updated: Yes Orders Last 24hrs: Active Orders 24 hr Category Date Time Status Admission Status [Patient Status] [ADT] Routine ADT 01/17/20 11:38 Active Cardiac Monitoring [RC] . DIRECTED Care 01/17/20 07:19 Active EKG Documentation Completion [RC] STAT Care 01/17/20 07:20 Active Oxygen Therapy [RC] PRN Care 01/17/20 07:19 Active Peripheral IV Care [RC] . DIRECTED Care 01/17/20 07:20 Active ABG [BLOOD GAS ARTERIAL] [BG] Stat Lab 01/17/20 11:14 Ordered Sodium Chloride 0.9% [Saline Flush] Med 01/17/20 07:19 Active 10 ml FLUSH ASDIRECTED PRN Peripheral IV Insertion Adult [OM.PC] Stat Oth 01/17/20 07:19 Ordered Medication Orders Sodium Chloride (Saline Flush) 10 ml FLUSH ASDIRECTED PRN PRN Reason: Keep Vein Open Last Admin: 01/17/20 07:36 Dose: 10 ml Documented by: SU Assessment/Plan Comment:: Assessment - day of admission 01/17/20 * 89 yo female who fell at home after tripping, landing on buttocks * Denies hitting head but reports back, left hip and chest pain * Denies any other recent falls * History of arthritis and osteoporosis; On Prolia * Utilizes walker. Has surgical shoe on right foot 2/2 toenail issue * CXR and left hip x-rays show nothing acute * Requiring 2L O2 in ED, refusing to take deep breath due to pain * Given 0.25 Dilaudid in ED * 12-lead EKG shows NSR at 61 BPM with no ectopy * Labs * WBC 6.13 * Hgb 13.4 * Platelet 255 * Sodium 130 * Potassium 5.3 * BUN 22 * Creatinine 1.1 * eGFR 47 * Troponin <0.017 * Albumin 3.4 * Admitted observation status for pain control and PT/OT PLAN Chest wall pain Fall Back pain Hypoxia * Pain medications as ordered * IS * O2 as needed * PT/OT * CM/SW Glaucoma Macular degeneration * Continue home eye drops CAD (coronary artery disease) HLD (hyperlipidemia) Hypertension * Home medications as ordered * Hold lasix for now GERD (gastroesophageal reflux disease) * No current concerns or home medications Arthritis Osteoporosis * No current concerns Chronic headache * No current concerns * Monitor Hypothyroidism * Continue home levothyroxine Lymphoma s/p throat radiation in 2008 * No current concerns PCP: Dr. Bloom DVT prophylaxis: Lovenox GI Prophylaxis: Not indicated Social: Patient lives at home alone. Utilizes walker. Disposition: Patient will be admitted to medical floor observation status for pain control, pulmonary toilet, and PT/OT. LOS likely 2 days. - Mortality Measure Prognosis:: Good
[2020-01-17] MEDS ORDERED: Ondansetron 4 MG/2 ML SDV IV PRN (11:57)
[2020-01-17] MEDS ORDERED: Morphine 2 MG/ML SYRINGE IVPUSH PRN (11:59)
[2020-01-17] MEDS: Acetaminophen/Codeine 300-30 MG Tab PO PRN (14:21)
[2020-01-17] MEDS: Enoxaparin 30 MG/0.3 ML Syringe SUBCUT SCH (14:21)
[2020-01-17] MEDS ORDERED: Sodium Chloride 0.9% 1,000 ML IV SCH (14:30)
[2020-01-17] MEDS ORDERED: hydrALAZINE 20 MG/ML SDV IVPUSH ONE (15:00)
[2020-01-17] MEDS: Morphine 2 MG/ML SYRINGE IVPUSH PRN ×2 (16:46→22:24)
[2020-01-17] MEDS: TIMOLOL MALEATE 0.5% EYEBOTH SCH (22:28)
[2020-01-17] MEDS: BIMATOPROST 0.01% EYEBOTH SCH (22:28)
[2020-01-18] MEDS: Acetaminophen/Codeine 300-30 MG Tab PO PRN ×4 (00:36→23:39)
[2020-01-18] MEDS: Acetaminophen 325 MG Tab PO PRN ×4 (00:37→16:09)
[2020-01-18] MEDS ORDERED: LEVOTHYROXINE 100 MCG PO SCH (06:00)
--- NOTE | 2020-01-18 07:15 | PCM.PN ---
- General Info Date of Service: 01/18/20 Admission Dx/Problem (Free Text): Admission Diagnosis/Problem Admission Diagnosis/Problem Hypoxia Functional Status: Reports: Pain Controlled (mostly - improved today), Tolerating Diet, Ambulating, Urinating, Incentive Spirometry. Denies: New Symptoms - Review of Systems General: Reports: Weakness, Fatigue (didnt sleep well last night ). Denies: Fever, Chills HEENT: Reports: No Symptoms. Denies: Headaches, Sore Throat Pulmonary: Reports: No Symptoms. Denies: Shortness of Breath, Pleuritic Chest Pain, Cough, Sputum, Wheezing Cardiovascular: Reports: No Symptoms, Chest Pain. Denies: Palpitations, Dyspnea on Exertion, Edema Gastrointestinal: Reports: Decreased Appetite. Denies: Abdominal Pain, Constipation, Diarrhea, Difficulty Swallowing, Nausea, Vomiting Genitourinary: Reports: No Symptoms. Denies: Pain Musculoskeletal: Reports: Neck Pain, Back Pain Skin: Reports: No Symptoms. Denies: Cyanosis Neurological: Reports: Numbness, Tingling, Difficulty Walking, Gait Disturbance. Denies: Confusion Psychiatric: Reports: No Symptoms - Patient Data Vitals - Most Recent: Last Vital Signs Temp 97.9 F 01/18/20 04:45 Pulse 73 01/18/20 04:45 Resp 18 01/18/20 04:45 BP 114/72 01/18/20 04:45 Pulse Ox 93 L 01/18/20 04:45 Weight - Most Recent: 88 lb 14.4 oz I&O - Last 24 Hours: Intake & Output 01/17/20 01/18/20 01/18/20 22:59 06:59 14:59 Intake Total 250 1150 Output Total 250 400 Balance 0 750 Lab Results Last 24 Hours: Laboratory Results - last 24 hr 01/17/20 01/17/20 01/17/20 Range/Units 07:57 07:57 07:57 WBC 6.13 (3.98-10.04) K/mm3 RBC 4.48 (3.98-5.22) M/mm3 Hgb 13.4 D (11.2-15.7) gm/dl Hct 42.6 (34.1-44.9) % MCV 95.1 H (79.4-94.8) fl MCH 29.9 (25.6-32.2) pg MCHC 31.5 L (32.2-35.5) g/dl RDW Std Deviation 45.1 (36.4-46.3) fL Plt Count 255 D (182-369) K/mm3 MPV 8.2 L (9.4-12.3) fl Neut % (Auto) 84.2 H (34.0-71.1) % Lymph % (Auto) 5.2 L (19.3-51.7) % [place] % (Auto) 8.6 (4.7-12.5) % Eos % (Auto) 0.7 (0.7-5.8) Baso % (Auto) 0.3 (0.1-1.2) % Neut # (Auto) 5.16 (1.56-6.13) K/mm3 Lymph # (Auto) 0.32 L (1.18-3.74) K/mm3 [place] # (Auto) 0.53 H (0.24-0.36) K/mm3 Eos # (Auto) 0.04 (0.04-0.36) K/mm3 Baso # (Auto) 0.02 (0.01-0.08) K/mm3 Manual Slide Review Abnormal smear Sodium 130 L (136-145) mEq/L Potassium 5.3 H (3.5-5.1) mEq/L Chloride 93 L (98-107) mEq/L Carbon Dioxide 33 H (21-32) mEq/L Anion Gap 9.3 (5-15) BUN 22 H (7-18) mg/dL Creatinine 1.1 H (0.55-1.02) mg/dL Est Cr Clr Drug Dosing TNP Estimated GFR (MDRD) 47 (>60) mL/min BUN/Creatinine Ratio 20.0 H (14-18) Glucose 101 (83-115) mg/dL Calcium 9.2 (8.5-10.1) mg/dL Phosphorus 2.9 (2.6-4.7) mg/dL Magnesium 1.9 (1.8-2.4) mg/dl Total Bilirubin 0.2 (0.2-1.0) mg/dL AST 34 (15-37) U/L ALT 18 (14-59) U/L Alkaline Phosphatase 73 (46-116) U/L Troponin I < 0.017 (0.00-0.056) ng/mL Total Protein 7.1 (6.4-8.2) g/dl Albumin 3.2 L (3.4-5.0) g/dl Globulin 3.9 gm/dL Albumin/Globulin Ratio 0.8 L (1-2) Free T4 (0.76-1.46) ng/dL TSH 3rd Generation 12.761 H (0.358-3.74) uIU/mL Urine Osmolality (400-1100) mosm/kg Ur Random Creatinine (30.0-125.0) mg/dL Ur Random Sodium (40-220) mEq/L COVID-19 (SEAN) (NEGATIVE) 01/17/20 01/17/20 01/17/20 Range/Units 07:57 11:15 12:01 WBC (3.98-10.04) K/mm3 RBC (3.98-5.22) M/mm3 Hgb (11.2-15.7) gm/dl Hct (34.1-44.9) % MCV (79.4-94.8) fl MCH (25.6-32.2) pg MCHC (32.2-35.5) g/dl RDW Std Deviation (36.4-46.3) fL Plt Count (182-369) K/mm3 MPV (9.4-12.3) fl Neut % (Auto) (34.0-71.1) % Lymph % (Auto) (19.3-51.7) % [place] % (Auto) (4.7-12.5) % Eos % (Auto) (0.7-5.8) Baso % (Auto) (0.1-1.2) % Neut # (Auto) (1.56-6.13) K/mm3 Lymph # (Auto) (1.18-3.74) K/mm3 [place] # (Auto) (0.24-0.36) K/mm3 Eos # (Auto) (0.04-0.36) K/mm3 Baso # (Auto) (0.01-0.08) K/mm3 Manual Slide Review Sodium (136-145) mEq/L Potassium (3.5-5.1) mEq/L Chloride (98-107) mEq/L Carbon Dioxide (21-32) mEq/L Anion Gap (5-15) BUN (7-18) mg/dL Creatinine (0.55-1.02) mg/dL Est Cr Clr Drug Dosing Estimated GFR (MDRD) (>60) mL/min BUN/Creatinine Ratio (14-18) Glucose (83-115) mg/dL Calcium (8.5-10.1) mg/dL Phosphorus (2.6-4.7) mg/dL Magnesium (1.8-2.4) mg/dl Total Bilirubin (0.2-1.0) mg/dL AST (15-37) U/L ALT (14-59) U/L Alkaline Phosphatase (46-116) U/L Troponin I (0.00-0.056) ng/mL Total Protein (6.4-8.2) g/dl Albumin (3.4-5.0) g/dl Globulin gm/dL Albumin/Globulin Ratio (1-2) Free T4 1.39 (0.76-1.46) ng/dL TSH 3rd Generation (0.358-3.74) uIU/mL Urine Osmolality (400-1100) mosm/kg Ur Random Creatinine 35.6 (30.0-125.0) mg/dL Ur Random Sodium 28 L (40-220) mEq/L COVID-19 (SEAN) Negative (NEGATIVE) 01/17/20 01/18/20 Range/Units 12:02 05:38 WBC (3.98-10.04) K/mm3 RBC (3.98-5.22) M/mm3 Hgb (11.2-15.7) gm/dl Hct (34.1-44.9) % MCV (79.4-94.8) fl MCH (25.6-32.2) pg MCHC (32.2-35.5) g/dl RDW Std Deviation (36.4-46.3) fL Plt Count (182-369) K/mm3 MPV (9.4-12.3) fl Neut % (Auto) (34.0-71.1) % Lymph % (Auto) (19.3-51.7) % [place] % (Auto) (4.7-12.5) % Eos % (Auto) (0.7-5.8) Baso % (Auto) (0.1-1.2) % Neut # (Auto) (1.56-6.13) K/mm3 Lymph # (Auto) (1.18-3.74) K/mm3 [place] # (Auto) (0.24-0.36) K/mm3 Eos # (Auto) (0.04-0.36) K/mm3 Baso # (Auto) (0.01-0.08) K/mm3 Manual Slide Review Sodium 131 L (136-145) mEq/L Potassium 4.8 (3.5-5.1) mEq/L Chloride 94 L (98-107) mEq/L Carbon Dioxide 28 (21-32) mEq/L Anion Gap 13.8 (5-15) BUN 18 (7-18) mg/dL Creatinine 0.9 (0.55-1.02) mg/dL Est Cr Clr Drug Dosing 27.51 Estimated GFR (MDRD) 59 (>60) mL/min BUN/Creatinine Ratio 20.0 H (14-18) Glucose 81 L (83-115) mg/dL Calcium 8.3 L (8.5-10.1) mg/dL Phosphorus 3.0 (2.6-4.7) mg/dL Magnesium 1.8 (1.8-2.4) mg/dl Total Bilirubin (0.2-1.0) mg/dL AST (15-37) U/L ALT (14-59) U/L Alkaline Phosphatase (46-116) U/L Troponin I (0.00-0.056) ng/mL Total Protein (6.4-8.2) g/dl Albumin (3.4-5.0) g/dl Globulin gm/dL Albumin/Globulin Ratio (1-2) Free T4 (0.76-1.46) ng/dL TSH 3rd Generation (0.358-3.74) uIU/mL Urine Osmolality 232 L (400-1100) mosm/kg Ur Random Creatinine (30.0-125.0) mg/dL Ur Random Sodium (40-220) mEq/L COVID-19 (SEAN) (NEGATIVE) Med Orders - Current: Current Medications Acetaminophen (Tylenol) 650 mg PO Q4H PRN PRN Reason: Pain (Mild 1-3)/fever Last Admin: 01/18/20 05:15 Dose: 650 mg Documented by: Acetaminophen/Codeine Phosphate (Tylenol With Codeine No.3 300mg/30mg) 1 tab PO Q6H PRN PRN Reason: moderate pain Last Admin: 01/18/20 00:36 Dose: 1 tab Documented by: Enoxaparin Sodium (Lovenox) 30 mg SUBCUT Q24H [facility] Last Admin: 01/17/20 14:21 Dose: 30 mg Documented by: Levothyroxine Sodium (Synthroid) 100 mcg PO ACBREAKFAST [facility] Last Admin: 01/18/20 05:15 Dose: 100 mcg Documented by: Losartan Potassium (Cozaar) 100 mg PO DAILY [facility] Metoprolol Succinate (Toprol Xl) 50 mg PO DAILY [facility] Morphine Sulfate (Morphine) 1 mg IVPUSH Q4H PRN PRN Reason: Breakthrough Pain Last Admin: 01/17/20 22:24 Dose: 1 mg Documented by: Bimatoprost 0.01% (Ptom) 1 drop EYEBOTH BID [facility] Last Admin: 01/17/20 22:28 Dose: 1 drop Documented by: Eye Relief Drops (Ptom) 0 each EYEBOTH DAILY [facility] Timolol Maleate 0.5% (Ptom) 1 drop EYEBOTH BID [facility] Last Admin: 01/17/20 22:28 Dose: 1 drop Documented by: Ondansetron HCl (Zofran) 4 mg IV Q6H PRN PRN Reason: Nausea/Vomiting Sodium Chloride (Saline Flush) 10 ml FLUSH ASDIRECTED PRN PRN Reason: Keep Vein Open Last Admin: 01/17/20 07:36 Dose: 10 ml Documented by: Discontinued Medications Hydralazine HCl (Apresoline) 10 mg IVPUSH ONETIME ONE Stop: 01/17/20 15:01 Last Admin: 01/17/20 15:23 Dose: 10 mg Documented by: Hydromorphone HCl (Dilaudid) 0.25 mg IVPUSH ONETIME ONE Stop: 01/17/20 08:31 Last Admin: 01/17/20 09:10 Dose: 0.25 mg Documented by: Sodium Chloride (Normal Saline) 1,000 mls @ 75 mls/hr IV ASDIRECTED [facility] Stop: 01/18/20 03:49 Last Admin: 01/17/20 15:24 Dose: 75 mls/hr Documented by: Morphine Sulfate (Morphine) 0.5 mg IVPUSH Q4H PRN PRN Reason: severe pain Last Admin: 01/17/20 12:57 Dose: 0.5 mg Documented by: Spironolactone 50 Mg (Ptom) 0 mg PO DAILY [facility] - Exam Quality Assessment: Supplemental Oxygen (1L), DVT Prophylaxis General: Alert, Oriented, Cooperative, No Acute Distress HEENT: Pupils Equal, Pupils Reactive, Mucous Membr. Moist/[place] Neck: Supple, Trachea Midline Lungs: Clear to Auscultation, Normal Respiratory Effort, Other (Contiued bilateral chest wall pain ) Cardiovascular: Regular Rate, Regular Rhythm GI/Abdominal Exam: Normal Bowel Sounds, Soft, Non-Tender, No Distention (Female) Exam: Deferred Back Exam: Decreased Range of Motion, Other (severe kyphosis ) Extremities: Normal Inspection, Normal Range of Motion, Non-Tender, No Pedal Edema Skin: Warm, Dry, Intact Neurological: No New Focal Deficit Psy/Mental Status: Alert, Normal Affect, Normal Mood Sepsis Event Note - Evaluation Sepsis Screening Result: No Definite Risk - Focused Exam Vital Signs: Vital Signs Temp Pulse Resp BP Pulse Ox 01/18/20 04:45 97.9 F 73 18 114/72 93 L 01/18/20 00:41 97.9 F 74 20 155/79 H 98 01/17/20 20:10 98.1 F 64 16 121/50 L 90 L - Problem List & Annotations (1) Glaucoma SNOMED Code(s): 24472094 Code(s): H40.9 - UNSPECIFIED GLAUCOMA Status: Chronic Priority: Low Current Visit: No Qualifiers: Glaucoma type: unspecified Laterality: unspecified laterality Qualified Code(s): H40.9 - Unspecified glaucoma (2) Macular degeneration SNOMED Code(s): 594129736 Code(s): H35.30 - UNSPECIFIED MACULAR DEGENERATION Status: Chronic Priority: Low Current Visit: No Qualifiers: Macular degeneration type: unspecified type Eye laterality: unspecified Qualified Code(s): H35.30 - Unspecified macular degeneration (3) CAD (coronary artery disease) SNOMED Code(s): 56012533 Code(s): I25.10 - ATHSCL HEART DISEASE OF [place] CORONARY ARTERY W/O ANG PCTRS Status: Chronic Priority: Low Current Visit: No Qualifiers: Coronary Disease-Associated Artery/Lesion type: unspecified vessel or lesion type [place] vs. transplanted heart: unspecified whether [place] or transplanted heart Associated angina: angina presence unspecified Qualified Code(s): I25.10 - Atherosclerotic heart disease of [place] coronary artery without angina pectoris (4) HLD (hyperlipidemia) SNOMED Code(s): 19011810 Code(s): E78.5 - HYPERLIPIDEMIA, UNSPECIFIED Status: Chronic Priority: Low Current Visit: No Qualifiers: Hyperlipidemia type: unspecified Qualified Code(s): E78.5 - Hyperlipidemia, unspecified (5) GERD (gastroesophageal reflux disease) SNOMED Code(s): 858100008 Code(s): K21.9 - GASTRO-ESOPHAGEAL REFLUX DISEASE WITHOUT ESOPHAGITIS Status: Chronic Priority: Low Current Visit: No Qualifiers: Esophagitis presence: esophagitis presence not specified Qualified Code(s): K21.9 - Gastro-esophageal reflux disease without esophagitis (6) Arthritis SNOMED Code(s): 2330553 Code(s): M19.90 - UNSPECIFIED OSTEOARTHRITIS, UNSPECIFIED SITE Status: Chronic Priority: Low Current Visit: No (7) Osteoporosis SNOMED Code(s): 93761061 Code(s): M81.0 - AGE-RELATED OSTEOPOROSIS W/O CURRENT PATHOLOGICAL FRACTURE Status: Chronic Priority: Low Current Visit: No Qualifiers: Osteoporosis type: unspecified Presence of current pathological fracture: unspecified Qualified Code(s): M81.0 - Age-related osteoporosis without current pathological fracture (8) Chronic headache SNOMED Code(s): 754013202 Code(s): R51 - HEADACHE Status: Chronic Priority: Low Current Visit: No Qualifiers: Headache type: unspecified Intractability: not intractable Qualified Code(s): R51 - Headache (9) Hypothyroidism SNOMED Code(s): 62541739 Code(s): E03.9 - HYPOTHYROIDISM, UNSPECIFIED Status: Chronic Priority: Low Current Visit: No Qualifiers: Hypothyroidism type: unspecified Qualified Code(s): E03.9 - Hypothyroidism, unspecified (10) Chest wall pain SNOMED Code(s): 631573824 Code(s): R07.89 - OTHER CHEST PAIN Status: Acute Priority: High Current Visit: Yes (11) Fall SNOMED Code(s): 9679968, 806166778 Code(s): W19.XXXA - UNSPECIFIED FALL, INITIAL ENCOUNTER Status: Acute Priority: High Current Visit: Yes Qualifiers: Encounter type: initial encounter Qualified Code(s): W19.XXXA - Unspecified fall, initial encounter (12) Hypoxia SNOMED Code(s): 277690045 Code(s): R09.02 - HYPOXEMIA Status: Acute Priority: High Current Visit: Yes (13) Hypertension SNOMED Code(s): 84810893 Code(s): I10 - ESSENTIAL (PRIMARY) HYPERTENSION Status: Chronic Priority: Low Current Visit: No Qualifiers: Hypertension type: essential hypertension Qualified Code(s): I10 - Essential (primary) hypertension (14) Lymphoma SNOMED Code(s): 412676438 Code(s): C85.90 - NON-HODGKIN LYMPHOMA, UNSPECIFIED, UNSPECIFIED SITE Status: Chronic Priority: Low Current Visit: No Qualifiers: Lymphoma type: unspecified type Lymphoma site: intra-abdominal nodes Qualified Code(s): C85.93 - Non-Hodgkin lymphoma, unspecified, intra-abdominal lymph nodes (15) Back pain SNOMED Code(s): 797235616 Code(s): M54.9 - DORSALGIA, UNSPECIFIED Status: Acute Priority: High Current Visit: Yes Qualifiers: Back pain location: back pain in unspecified location Chronicity: unspecified Back pain laterality: unspecified Qualified Code(s): M54.9 - Dorsalgia, unspecified (16) Neck pain SNOMED Code(s): 64410351 Code(s): M54.2 - CERVICALGIA Status: Acute Priority: High Current Visit: Yes (17) Weight loss SNOMED Code(s): 78703622, 941641441 Code(s): R63.4 - ABNORMAL WEIGHT LOSS Status: Acute Priority: High Current Visit: Yes (18) Hyponatremia SNOMED Code(s): 75923834 Code(s): E87.1 - HYPO-OSMOLALITY AND HYPONATREMIA Status: Chronic Priority: Medium Current Visit: Yes - Problem List Review Problem List Initiated/Reviewed/Updated: Yes - My Orders Last 24 Hours: My Active Orders 01/17/20 Lunch Heart Healthy Diet [DIET] 01/17/20 11:38 Admission Status [Patient Status] [ADT] Routine 01/17/20 11:57 Height and Weight [RC] 04 Intake and Output [RC] 04,16 Pulse Oximetry [RC] PRN Up With Assistance [RC] BID VTE/DVT Education [RC] DAILY Vital Signs [RC] Q4HR Consult to Case Management/Qa Test Lead [CONS] Routine Consult to Spiritual Care [CONS] Routine OT Evaluation and Treatment [CONS] Routine PT Evaluation and Treatment [CONS] Routine Acetaminophen [TylenoL] 650 mg PO Q4H PRN Ondansetron [Zofran] 4 mg IV Q6H PRN 01/17/20 11:59 Acetaminophen/Codeine [Tylenol with Codeine No.3 300MG/30MG] 1 tab PO Q6H PRN 01/17/20 12:01 RT Incentive Spirometry [RC] ASDIRECTED 01/17/20 13:00 Enoxaparin [Lovenox] 30 mg SUBCUT Q24H 01/17/20 13:32 Code Status [Resuscitation Status] Routine 01/17/20 14:01 Morphine 1 mg IVPUSH Q4H PRN 01/17/20 21:00 Bimatoprost 1 drop EYEBOTH BID timoloL maleate 1 drop EYEBOTH BID 01/18/20 06:00 Levothyroxine [Synthroid] 100 mcg PO ACBREAKFAST 01/18/20 09:00 Carboxymethylcellulos/Glycerin [Refresh Optive Gel Eye Drops] 0 each EYEBOTH DAILY Losartan [Cozaar] 100 mg PO DAILY Metoprolol Succinate [Toprol XL] 50 mg PO DAILY - Assessment Assessment:: Assessment - day of admission 01/17/20 * 89 yo female who fell at home after tripping, landing on buttocks * Denies hitting head but reports back, left hip and chest pain * Denies any other recent falls * History of arthritis and osteoporosis; On Prolia * Utilizes walker. Has surgical shoe on right foot 2/2 toenail issue * CXR and left hip x-rays show nothing acute * Requiring 2L O2 in ED, refusing to take deep breath due to pain * Given 0.25 Dilaudid in ED * 12-lead EKG shows NSR at 61 BPM with no ectopy * Labs * WBC 6.13 * Hgb 13.4 * Platelet 255 * Sodium 130 * Potassium 5.3 * BUN 22 * Creatinine 1.1 * eGFR 47 * Troponin <0.017 * Albumin 3.4 * Admitted observation status for pain control and PT/OT 01/18/20 * Pain has improved with pain medications * Down to 1L O2 * Continues to utilize IS * Last * Reports left arm numbness * PT/OT recommending SNF * Labs * sodium 131 * Potassium 4.8 * BUN 18 * Creatinine 0.9 * eGFR 59 * Urine osmolality on admission 232 * Urine random creatinine on admission 35.6 * Urine random sodium on admission 28 * Upgrade to inpatient as PT/OT are recommending SNF * Reports significant weight loss over past year and minimal appetite - consult dietary * Hyponatremia - acute on chronic * C-spine/Thoracic spine/Chest CT scan ordered - Plan Plan:: Chest wall pain Fall Neck pain Back pain Hypoxia * Pain medications as ordered * IS * O2 as needed * PT/OT * CM/SW * C-spine, lumbar spine, and chest CT without contrast Weight loss Hyponatremia * Regular diet * Consider fluid restriction * Dietary consult Glaucoma Macular degeneration * Continue home eye drops CAD (coronary artery disease) HLD (hyperlipidemia) Hypertension * Home medications as ordered * Hold lasix for now GERD (gastroesophageal reflux disease) * No current concerns or home medications Arthritis Osteoporosis * No current concerns Chronic headache * No current concerns * Monitor Hypothyroidism * Continue home levothyroxine Lymphoma s/p throat radiation in 2008 * No current concerns PCP: Dr. Bloom DVT prophylaxis: Lovenox GI Prophylaxis: Not indicated Social: Patient lives at home alone. Utilizes walker. Disposition: Patient will be upgraded to inpatient for pain control, pulmonary toilet, and PT/OT. Will likely require SNF at discharge per PT/OT recommendations.
[2020-01-18] MEDS: BIMATOPROST 0.01% EYEBOTH SCH ×2 (08:10→21:17)
[2020-01-18] MEDS: Losartan 100 MG Tab PO SCH (08:11)
[2020-01-18] MEDS: EYE RELIEF EYEBOTH SCH (08:12)
[2020-01-18] MEDS: TIMOLOL MALEATE 0.5% EYEBOTH SCH ×2 (08:15→21:17)
[2020-01-18] MEDS ORDERED: SPIRONOLACTONE 50 MG PO SCH (09:00)
[2020-01-18] MEDS ORDERED: Metoprolol Succinate 50 MG Tab.ER **PTOM PO SCH (09:00)
--- NOTE | 2020-01-18 11:29 | CT ---
CT chest Technique: Multiple axial sections were obtained through the chest. Intravenous contrast was not utilized. Comparison: Prior chest CT study of 09/11/11. Findings: No discrete rib fracture is appreciated. Fracture within the sternum is seen with mild displacement. Fracture is noted with compression at T8 which is most likely old. Mild compression deformity of T11 is seen which is most likely old. Fracture is noted within the vertebral body of L3 which appears to be acute. Mild retrolisthesis of the inferior posterior vertebral line into the central canal is seen by about 5 mm. Fracture does not appear to involve the posterior elements. Heart is enlarged. Coronary artery calcification is noted. Aorta shows atherosclerotic calcification without aneurysm. Apical scarring noted on both sides. Small pleural effusions are noted on both sides. Mild atelectasis seen within the right lung base. Nodule noted within the right upper lung measuring approximately 1.2 cm which is stable from prior chest CT. No acute parenchymal change is otherwise seen. Impression: 1. Sternal fracture with mild displacement. 2. Acute fracture within the L3 vertebral body with mild retrolisthesis of the inferior and posterior vertebral line into the central canal by 5 mm. 3. Compression deformities of T8 and T9 is seen which are most likely old. 4. Small bilateral pleural effusions with mild right basilar atelectasis. 5. Nodule within the right upper lung measuring 1.2 cm which is nonspecific regarding etiology but is seen on prior CT exam and appears without significant change. 6. Apical scarring. No acute parenchymal change is seen. Diagnostic code #5 This report was dictated in MDT
--- NOTE | 2020-01-18 11:30 | CT ---
CT cervical spine Technique: Multiple axial sections through the cervical spine were obtained. Reconstructed coronal and sagittal images were obtained. Comparison: No prior cervical spine imaging is available. Findings: Severe compression deformities are noted of T1 and T3. T1 vertebral compression deformity is sclerotic and is believed to be old. T3 compression deformity shows less sclerosis and could be acute or subacute. There is retrolisthesis of the vertebral lines into the central canal at both these levels. Severe disc space narrowing at C4-C5, C5-C6 and C6-C7. Moderate spondylolisthesis is noted at C5-C6 which is felt to be due to degenerative apophyseal change. No acute fracture line is seen within the cervical spine. Impression: 1. Compression deformity of T1 which is most likely old as it is sclerotic. 2. Severe compression deformity at T3 which could be subacute or acute as it appears less sclerotic. 3. There is posterior retrolisthesis of both vertebral bodies (of T1 and T3) into the central canal. At T1 this measures 6 mm and at T3 this measures 5 mm. Sufficient room appears posteriorly for the adjacent thoracic cord. 4. Degenerative change as noted above. No other acute bony abnormality is appreciated. Note: If further imaging for cord injury or edema is needed, MRI could then be considered. Diagnostic code #3 This report was dictated in MDT
--- NOTE | 2020-01-18 11:30 | CT ---
CT thoracic spine Technique: Multiple axial sections through the thoracic spine were obtained. Reconstructed coronal and sagittal images were obtained. Findings: Compression fracture is noted of T1 which appears sclerotic and most likely is old. Retrolisthesis of the posterior vertebral line is seen as mentioned on cervical spine report. Severe compression deformity of T3. This is less specific for age and could be acute or subacute. Retrolisthesis of the posterior vertebral line is seen as mentioned on cervical spine report. Milder compression deformities are seen within T8 and T11 which are most likely old. Fracture within the vertebral body of L3 which appears acute. Retrolisthesis of the posterior vertebral line into the central canal is seen as measured on chest CT. Other vertebral body heights are maintained. Kyphosis is present. Mild degenerative apophyseal change is scattered throughout the cervical spine. No other definite fracture is seen. No central canal stenosis is believed to be present. Impression: 1. Numerous compression deformities as noted above. Compression deformity within T3 could be acute or subacute. Fracture within L3 is definitely acute. 2. If patient has central cord symptoms, MRI could then be considered. Diagnostic code #5 This report was dictated in MDT
[2020-01-18] MEDS: Enoxaparin 30 MG/0.3 ML Syringe SUBCUT SCH (13:27)
[2020-01-18] MEDS: Morphine 2 MG/ML SYRINGE IVPUSH PRN ×2 (17:38→21:17)
[2020-01-19] MEDS: Acetaminophen 325 MG Tab PO PRN (05:45)
[2020-01-19] MEDS: Acetaminophen/Codeine 300-30 MG Tab PO PRN (05:45)
[2020-01-19] MEDS: Levothyroxine 100 MCG Tab PO SCH (05:45)
[2020-01-19] MEDS: Metoprolol Succinate 50 MG Tab.ER PO SCH (09:19)
[2020-01-19] MEDS: Losartan 100 MG Tab PO SCH (09:20)
[2020-01-19] MEDS: BIMATOPROST 0.01% EYEBOTH SCH ×2 (09:22→23:02)
[2020-01-19] MEDS: EYE RELIEF EYEBOTH SCH (09:23)
[2020-01-19] MEDS: TIMOLOL MALEATE 0.5% EYEBOTH SCH ×2 (09:23→23:03)
--- NOTE | 2020-01-19 09:42 | CR ---
Chest: AP view of the chest was obtained. Comparison: Prior chest x-ray of 01/17/20. Heart is enlarged. Lung markings are increased but felt to be accentuated from technique. Slight atelectasis is seen within the left base as well as within the left upper lung and left mid lung. Mild atelectasis within the right base is seen. Impression: 1. Scattered areas of atelectasis. 2. Increased central lung markings believed to be accentuated from technique and felt to be stable from prior exam. 3. Areas of atelectasis as noted above. 4. No definite pleural effusion is seen on plain film study. Diagnostic code #2 This report was dictated in MDT
[2020-01-19] MEDS: traMADol 50 MG Tab PO PRN (11:01)
[2020-01-19] MEDS: Enoxaparin 30 MG/0.3 ML Syringe SUBCUT SCH (12:40)
[2020-01-19] MEDS: Morphine 2 MG/ML SYRINGE IVPUSH PRN (16:33)
--- NOTE | 2020-01-19 18:31 | PCM.PN ---
- General Info Date of Service: 01/19/20 Subjective Update: Feeling a lot better Tolerating diet 01/15 - Patient Data Vitals - Most Recent: Last Vital Signs Temp 98.4 F 01/19/20 12:19 Pulse 60 01/19/20 17:17 Resp 18 01/19/20 17:16 BP 147/57 H 01/19/20 17:16 Pulse Ox 100 01/19/20 17:17 Weight - Most Recent: 39.916 kg - Exam General: Alert, Oriented, Cooperative, No Acute Distress HEENT: Pupils Equal, Pupils Reactive, Mucous Membr. Moist/[place] Neck: Supple, Trachea Midline, No JVD, No Thyromegaly Lungs: Clear to Auscultation, Normal Respiratory Effort, Decreased Breath Sounds. No: Crackles, Rales, Rhonchi, Rub, Stridor, Wheezing Cardiovascular: Regular Rate, Regular Rhythm. No: Murmurs, Gallops, Rubs GI/Abdominal Exam: Soft, Non-Tender, Distended. No: Guarding, Rigid, Rebound Extremities: Other (erythema over anterior LLE with raised pustules, no obvious purulent discharge, improved from admission smith) Peripheral Pulses: 2+: Radial (L), Radial (R) Sepsis Event Note - Evaluation Sepsis Screening Result: No Definite Risk - Problem List & Annotations (1) Fall SNOMED Code(s): 5577073, 753296056 Code(s): W19.XXXA - UNSPECIFIED FALL, INITIAL ENCOUNTER Status: Acute Priority: High Current Visit: Yes Qualifiers: Encounter type: initial encounter Qualified Code(s): W19.XXXA - Unspecified fall, initial encounter (2) Sternal fracture SNOMED Code(s): 98493726 Code(s): S22.20XA - UNSP FRACTURE OF STERNUM, INIT ENCNTR FOR CLOSED FRACTURE Status: Acute Current Visit: Yes (3) Compression fracture of L3 vertebra SNOMED Code(s): 527788015 Code(s): S32.030A - [place] COMPRESSION FRACTURE OF THIRD LUMBAR VERTEBRA, INIT Status: Acute Current Visit: Yes (4) Hyperkalemia SNOMED Code(s): 62563996 Code(s): E87.5 - HYPERKALEMIA Status: Acute Current Visit: Yes (5) Anemia SNOMED Code(s): 358849300 Code(s): D64.9 - ANEMIA, UNSPECIFIED Status: Acute Priority: High Current Visit: No Qualifiers: Anemia type: unspecified type Qualified Code(s): D64.9 - Anemia, unspecified (6) Arthritis SNOMED Code(s): 9442630 Code(s): M19.90 - UNSPECIFIED OSTEOARTHRITIS, UNSPECIFIED SITE Status: Chronic Priority: Low Current Visit: No (7) Back pain SNOMED Code(s): 699864159 Code(s): M54.9 - DORSALGIA, UNSPECIFIED Status: Acute Priority: High Current Visit: Yes Qualifiers: Back pain location: back pain in unspecified location Chronicity: unspecified Back pain laterality: unspecified Qualified Code(s): M54.9 - Dorsalgia, unspecified (8) CAD (coronary artery disease) SNOMED Code(s): 01377636 Code(s): I25.10 - ATHSCL HEART DISEASE OF [place] CORONARY ARTERY W/O ANG PCTRS Status: Chronic Priority: Low Current Visit: No Qualifiers: Coronary Disease-Associated Artery/Lesion type: unspecified vessel or lesion type [place] vs. transplanted heart: unspecified whether [place] or transplanted heart Associated angina: angina presence unspecified Qualified Code(s): I25.10 - Atherosclerotic heart disease of [place] coronary artery without angina pectoris (9) Chest wall pain SNOMED Code(s): 385983468 Code(s): R07.89 - OTHER CHEST PAIN Status: Acute Priority: High Current Visit: Yes (10) GERD (gastroesophageal reflux disease) SNOMED Code(s): 099629052 Code(s): K21.9 - GASTRO-ESOPHAGEAL REFLUX DISEASE WITHOUT ESOPHAGITIS Status: Chronic Priority: Low Current Visit: No Qualifiers: Esophagitis presence: esophagitis presence not specified Qualified Code(s): K21.9 - Gastro-esophageal reflux disease without esophagitis (11) Glaucoma SNOMED Code(s): 62051368 Code(s): H40.9 - UNSPECIFIED GLAUCOMA Status: Chronic Priority: Low Current Visit: No Qualifiers: Glaucoma type: unspecified Laterality: unspecified laterality Qualified Code(s): H40.9 - Unspecified glaucoma (12) Headache SNOMED Code(s): 28695801 Code(s): R51 - HEADACHE Status: Acute Current Visit: No Qualifiers: Headache type: unspecified Headache chronicity pattern: acute headache Intractability: not intractable Qualified Code(s): R51 - Headache (13) Hypertension SNOMED Code(s): 72562007 Code(s): I10 - ESSENTIAL (PRIMARY) HYPERTENSION Status: Chronic Priority: Low Current Visit: No Qualifiers: Hypertension type: essential hypertension Qualified Code(s): I10 - Essential (primary) hypertension (14) Hypomagnesemia SNOMED Code(s): 294028398 Code(s): E83.42 - HYPOMAGNESEMIA Status: Acute Current Visit: No (15) Hyponatremia SNOMED Code(s): 64606205 Code(s): E87.1 - HYPO-OSMOLALITY AND HYPONATREMIA Status: Chronic Priority: Medium Current Visit: Yes (16) Hypothyroidism SNOMED Code(s): 74620422 Code(s): E03.9 - HYPOTHYROIDISM, UNSPECIFIED Status: Chronic Priority: Low Current Visit: No Qualifiers: Hypothyroidism type: unspecified Qualified Code(s): E03.9 - Hypothyroidism, unspecified (17) Hypoxia SNOMED Code(s): 150131142 Code(s): R09.02 - HYPOXEMIA Status: Acute Priority: High Current Visit: Yes (18) Neck pain SNOMED Code(s): 27049629 Code(s): M54.2 - CERVICALGIA Status: Acute Priority: High Current Visit: Yes (19) Osteoporosis SNOMED Code(s): 32377790 Code(s): M81.0 - AGE-RELATED OSTEOPOROSIS W/O CURRENT PATHOLOGICAL FRACTURE Status: Chronic Priority: Low Current Visit: No Qualifiers: Osteoporosis type: unspecified Presence of current pathological fracture: unspecified Qualified Code(s): M81.0 - Age-related osteoporosis without current pathological fracture (20) Weight loss SNOMED Code(s): 77351737, 712241261 Code(s): R63.4 - ABNORMAL WEIGHT LOSS Status: Acute Priority: High Current Visit: Yes (21) Dyslipidemia SNOMED Code(s): 126810100 Code(s): E78.5 - HYPERLIPIDEMIA, UNSPECIFIED Status: Acute Current Visit: Yes - Problem List Review Problem List Initiated/Reviewed/Updated: Yes - Assessment Assessment:: Assessment - day of admission 01/17/20 - 89 yo female who fell at home after tripping, landing on buttocks - Denies hitting head but reports back, left hip and chest pain - Denies any other recent falls - History of arthritis and osteoporosis; On Prolia - Utilizes walker. Has surgical shoe on right foot 2/2 toenail issue - CXR and left hip x-rays show nothing acute - Requiring 2L O2 in ED, refusing to take deep breath due to pain - Given 0.25 Dilaudid in ED - 12-lead EKG shows NSR at 61 BPM with no ectopy - Labs - WBC 6.13 - Hgb 13.4 - Platelet 255 - Sodium 130 - Potassium 5.3 - BUN 22 - Creatinine 1.1 - eGFR 47 - Troponin <0.017 - Albumin 3.4 - Admitted observation status for pain control and PT/OT 01/18/20 - Pain has improved with pain medications - Down to 1L O2 - Continues to utilize IS - Last BM - - Reports left arm numbness - PT/OT recommending SNF - Labs - sodium 131 - Potassium 4.8 - BUN 18 - Creatinine 0.9 - eGFR 59 - Urine osmolality on admission 232 - Urine random creatinine on admission 35.6 - Urine random sodium on admission 28 - Upgrade to inpatient as PT/OT are recommending SNF - Reports significant weight loss over past year and minimal appetite - consult dietary - Hyponatremia - acute on chronic - Chest CT: 1. Sternal fracture with mild displacement. 2. Acute sure within the L3 vertebral body with mild retro-listhesis of the inferior and posterior vertebral line into the central canal by 5 mm. 3. Compression deformities of T8 and T9 is seen which are most likely old. 4. Small bilateral pleural effusions with mild right basilar atelectasis. 5. Nodule within the right upper lung measuring 1.2 cm which is nonspecific guarding etiology but is seen on prior CT exam and appears without significant change. 6. Apical scarring no acute parenchymal changes seen. - Cervical spine CT scan is obtained and interpreted by Dr. Robbins as: 1. Compression deformity of T1 which is most likely old as it is sclerotic. 2. Severe compression deformity at T3 which could be subacute or acute as it appears less sclerotic. 3. There is posterior retrolisthesis of both vertebral bodies (of T1 and T3) to the central canal. At T1 this measures 6 mm and at T3 this measures 5 mm. The fissure room appears posteriorly for the adjacent thoracic cord. 4. Degenerative changes noted above no other acute bony abnormality is appreciated. - CT scan of the thoracic spine is attained and interpreted by Dr. Robbins as: 1. Numerous compression deformities as noted above. Compression deformity within T3 could be acute or subacute. Fracture within L3 is definitely acute. 2. If patient has central cord symptoms, MRI could then be considered. - Dr. Sandhu, neurosurgeon with [facility] in [place] was contacted to discuss scan results. - He reported that these fractures are usually managed the same acutely with pain control, assuming the patient has no central canal signs. - Will review imaging and call if new concerns - Sternal pain > back pain 01/19/20 - Patient states Tylenol does not work and has never worked for her pain - VS trend - BP 114-157/67-102 - Tmax 98.1 - HR 64-74 - SatO2 > 93% on 1-2LPM NC - Lab results - Na up from 131 to 132 - K up from 4.8 to 5.2 - GFR down from 59 to 47 - Plan Plan:: Fall Displaced sternal fracture Compression fracture of L3 vertebra Osteoporosis - Discontinue Tylenol - Pain control with Tramadol - Incentive spirometry - PT/OT - SNF placement Anemia - Work up Hypertension - Continue home medications Hyponatremia/Hypomagnesemia/Hyperkalemia - High salt diet - Replace magnesium - Repeat labs Hypothyroidism - Continue home levothyroxine Abnormal weight loss - Dietary consult and follow up Glaucoma - Continue home drops PROPHYLAXIS DVT- compression stockings GI- not indicated CODE STATUS: DNR/DNI DISPOSITION: Patient will remain admitted for pain control and pending set up to be transferred back to retirement once she completes her 3 midnights of in hospital stay.
[2020-01-20] MEDS: Levothyroxine 100 MCG Tab PO SCH (05:42)
[2020-01-20] MEDS: traMADol 50 MG Tab PO PRN ×2 (05:42→22:09)
[2020-01-20] MEDS: Morphine 2 MG/ML SYRINGE IVPUSH PRN (07:12)
--- NOTE | 2020-01-20 08:00 | PCM.PN ---
- General Info Date of Service: 01/20/20 Admission Dx/Problem (Free Text): Admission Diagnosis/Problem Admission Diagnosis/Problem Hypoxia Subjective Update: Not much oral intake Increased pain overnight BM 01/15 Functional Status: Reports: Urinating, Incentive Spirometry. Denies: Pain Controlled, Tolerating Diet, New Symptoms - Review of Systems General: Reports: No Symptoms, Weakness, Fatigue, Malaise. Denies: Fever, Chills HEENT: Reports: No Symptoms. Denies: Headaches, Sore Throat Pulmonary: Reports: No Symptoms. Denies: Shortness of Breath, Cough, Sputum, Wheezing Cardiovascular: Reports: Chest Pain. Denies: Palpitations, Dyspnea on Exertion, Edema Gastrointestinal: Reports: No Symptoms. Denies: Abdominal Pain, Constipation, Diarrhea, Nausea, Vomiting Genitourinary: Reports: No Symptoms. Denies: Pain Musculoskeletal: Reports: Neck Pain, Back Pain Skin: Reports: No Symptoms. Denies: Cyanosis Neurological: Reports: No Symptoms, Numbness, Tingling, Difficulty Walking, Weakness, Gait Disturbance. Denies: Confusion, Headache, Pre-Existing Deficit, Seizure, Syncope, Tremors Psychiatric: Reports: No Symptoms - Patient Data Vitals - Most Recent: Last Vital Signs Temp 97.9 F 01/20/20 04:52 Pulse 60 01/20/20 04:52 Resp 18 01/20/20 04:52 BP 110/73 01/20/20 04:52 Pulse Ox 100 01/20/20 04:52 Weight - Most Recent: 86 lb 8 oz I&O - Last 24 Hours: Intake & Output 01/19/20 01/20/20 01/20/20 22:59 06:59 14:59 Intake Total 150 200 Output Total 300 Balance -150 200 Lab Results Last 24 Hours: Laboratory Results - last 24 hr 01/20/20 01/20/20 Range/Units 04:50 04:50 WBC 11.75 H (3.98-10.04) K/mm3 RBC 4.48 (3.98-5.22) M/mm3 Hgb 13.4 (11.2-15.7) gm/dl Hct 44.8 (34.1-44.9) % MCV 100.0 H D (79.4-94.8) fl MCH 29.9 (25.6-32.2) pg MCHC 29.9 L (32.2-35.5) g/dl RDW Std Deviation 50.6 H (36.4-46.3) fL Plt Count 198 (182-369) K/mm3 MPV 9.6 (9.4-12.3) fl Neut % (Auto) 90.8 H (34.0-71.1) % Lymph % (Auto) 2.3 L (19.3-51.7) % [place] % (Auto) 6.5 (4.7-12.5) % Eos % (Auto) 0.1 L (0.7-5.8) Baso % (Auto) 0.1 (0.1-1.2) % Neut # (Auto) 10.68 H (1.56-6.13) K/mm3 Lymph # (Auto) 0.27 L (1.18-3.74) K/mm3 [place] # (Auto) 0.76 H (0.24-0.36) K/mm3 Eos # (Auto) 0.01 L (0.04-0.36) K/mm3 Baso # (Auto) 0.01 (0.01-0.08) K/mm3 Manual Slide Review Abnormal smear Sodium 132 L (136-145) mEq/L Potassium 5.4 H (3.5-5.1) mEq/L Chloride 94 L (98-107) mEq/L Carbon Dioxide 27 (21-32) mEq/L Anion Gap 16.4 H (5-15) BUN 42 H (7-18) mg/dL Creatinine 1.6 H (0.55-1.02) mg/dL Est Cr Clr Drug Dosing 15.05 mL/min Estimated GFR (MDRD) 30 (>60) mL/min BUN/Creatinine Ratio 26.3 H (14-18) Glucose 84 (83-115) mg/dL Calcium 8.6 (8.5-10.1) mg/dL Phosphorus 4.8 H (2.6-4.7) mg/dL Magnesium 2.1 (1.8-2.4) mg/dl Total Bilirubin 0.3 (0.2-1.0) mg/dL AST 29 (15-37) U/L ALT 17 (14-59) U/L Alkaline Phosphatase 72 (46-116) U/L Total Protein 6.5 (6.4-8.2) g/dl Albumin 2.8 L (3.4-5.0) g/dl Globulin 3.7 gm/dL Albumin/Globulin Ratio 0.8 L (1-2) Med Orders - Current: Current Medications Enoxaparin Sodium (Lovenox) 30 mg SUBCUT Q24H [facility] Last Admin: 01/19/20 12:40 Dose: 30 mg Documented by: Levothyroxine Sodium (Synthroid) 100 mcg PO ACBREAKFAST [facility] Last Admin: 01/20/20 05:42 Dose: 100 mcg Documented by: Losartan Potassium (Cozaar) 100 mg PO DAILY [facility] Last Admin: 01/19/20 09:20 Dose: 100 mg Documented by: Metoprolol Succinate (Toprol Xl) 50 mg PO DAILY [facility] Last Admin: 01/19/20 09:19 Dose: 50 mg Documented by: Morphine Sulfate (Morphine) 1 mg IVPUSH Q4H PRN PRN Reason: Breakthrough Pain Last Admin: 01/20/20 07:12 Dose: 1 mg Documented by: Bimatoprost 0.01% (Ptom) 1 drop EYEBOTH BID [facility] Last Admin: 01/19/20 23:02 Dose: 1 drop Documented by: Eye Relief Drops (Ptom) 0 each EYEBOTH DAILY [facility] Last Admin: 01/19/20 09:23 Dose: 1 each Documented by: Timolol Maleate 0.5% (Ptom) 1 drop EYEBOTH BID [facility] Last Admin: 01/19/20 23:03 Dose: 1 drop Documented by: Ondansetron HCl (Zofran) 4 mg IV Q6H PRN PRN Reason: Nausea/Vomiting Senna/Docusate Sodium (Senna Plus) 1 tab PO BID [facility] Last Admin: 01/19/20 23:02 Dose: 1 tab Documented by: Sodium Chloride (Saline Flush) 10 ml FLUSH ASDIRECTED PRN PRN Reason: Keep Vein Open Last Admin: 01/17/20 07:36 Dose: 10 ml Documented by: Tramadol HCl (Ultram) 50 - 100 mg PO Q12H PRN PRN Reason: PAIN Last Admin: 01/20/20 05:42 Dose: 50 mg Documented by: Discontinued Medications Acetaminophen (Tylenol) 650 mg PO Q4H PRN PRN Reason: Pain (Mild 1-3)/fever Last Admin: 01/19/20 05:45 Dose: 650 mg Documented by: Acetaminophen/Codeine Phosphate (Tylenol With Codeine No.3 300mg/30mg) 1 tab PO Q6H PRN PRN Reason: moderate pain Last Admin: 01/19/20 05:45 Dose: 1 tab Documented by: Hydralazine HCl (Apresoline) 10 mg IVPUSH ONETIME ONE Stop: 01/17/20 15:01 Last Admin: 01/17/20 15:23 Dose: 10 mg Documented by: Hydromorphone HCl (Dilaudid) 0.25 mg IVPUSH ONETIME ONE Stop: 01/17/20 08:31 Last Admin: 01/17/20 09:10 Dose: 0.25 mg Documented by: Sodium Chloride (Normal Saline) 1,000 mls @ 75 mls/hr IV ASDIRECTED [facility] Stop: 01/18/20 03:49 Last Admin: 01/17/20 15:24 Dose: 75 mls/hr Documented by: Levothyroxine Sodium (Synthroid) 100 mcg PO ACBREAKFAST [facility] Last Admin: 01/18/20 05:15 Dose: 100 mcg Documented by: Metoprolol Succinate (Toprol Xl) 50 mg PO DAILY [facility] Last Admin: 01/18/20 08:13 Dose: 50 mg Documented by: Morphine Sulfate (Morphine) 0.5 mg IVPUSH Q4H PRN PRN Reason: severe pain Last Admin: 01/17/20 12:57 Dose: 0.5 mg Documented by: Spironolactone 50 Mg (Ptom) 0 mg PO DAILY [facility] - Exam Quality Assessment: Supplemental Oxygen (1L), DVT Prophylaxis General: Alert, Oriented, Cooperative, No Acute Distress (when lying still. Reports pain on movement ) HEENT: Pupils Equal, Pupils Reactive Neck: Supple, Trachea Midline Lungs: Clear to Auscultation, Normal Respiratory Effort Cardiovascular: Regular Rate, Irregular Rhythm GI/Abdominal Exam: Normal Bowel Sounds, Soft, Non-Tender, No Distention (Female) Exam: Deferred Back Exam: Decreased Range of Motion Extremities: Normal Inspection, Normal Range of Motion, No Pedal Edema Skin: Warm, Dry, Intact Neurological: No New Focal Deficit Psy/Mental Status: Alert Sepsis Event Note - Evaluation Sepsis Screening Result: No Definite Risk - Focused Exam Vital Signs: Vital Signs Temp Pulse Resp BP Pulse Ox 01/20/20 04:52 97.9 F 60 18 110/73 100 - Problem List & Annotations (1) Glaucoma SNOMED Code(s): 35063007 Code(s): H40.9 - UNSPECIFIED GLAUCOMA Status: Chronic Priority: Low Current Visit: No Qualifiers: Glaucoma type: unspecified Laterality: unspecified laterality Qualified Code(s): H40.9 - Unspecified glaucoma (2) Macular degeneration SNOMED Code(s): 517304148 Code(s): H35.30 - UNSPECIFIED MACULAR DEGENERATION Status: Chronic Priority: Low Current Visit: No Qualifiers: Macular degeneration type: unspecified type Eye laterality: unspecified Qualified Code(s): H35.30 - Unspecified macular degeneration (3) CAD (coronary artery disease) SNOMED Code(s): 47367147 Code(s): I25.10 - ATHSCL HEART DISEASE OF [place] CORONARY ARTERY W/O ANG PCTRS Status: Chronic Priority: Low Current Visit: No Qualifiers: Coronary Disease-Associated Artery/Lesion type: unspecified vessel or lesion type [place] vs. transplanted heart: unspecified whether [place] or transplanted heart Associated angina: angina presence unspecified Qualified Code(s): I25.10 - Atherosclerotic heart disease of [place] coronary artery without angina pectoris (4) HLD (hyperlipidemia) SNOMED Code(s): 08999819 Code(s): E78.5 - HYPERLIPIDEMIA, UNSPECIFIED Status: Chronic Priority: Low Current Visit: No Qualifiers: Hyperlipidemia type: unspecified Qualified Code(s): E78.5 - Hyperlipidemia, unspecified (5) GERD (gastroesophageal reflux disease) SNOMED Code(s): 629669752 Code(s): K21.9 - GASTRO-ESOPHAGEAL REFLUX DISEASE WITHOUT ESOPHAGITIS Status: Chronic Priority: Low Current Visit: No Qualifiers: Esophagitis presence: esophagitis presence not specified Qualified Code(s): K21.9 - Gastro-esophageal reflux disease without esophagitis (6) Arthritis SNOMED Code(s): 1892086 Code(s): M19.90 - UNSPECIFIED OSTEOARTHRITIS, UNSPECIFIED SITE Status: Chronic Priority: Low Current Visit: No (7) Osteoporosis SNOMED Code(s): 61719146 Code(s): M81.0 - AGE-RELATED OSTEOPOROSIS W/O CURRENT PATHOLOGICAL FRACTURE Status: Chronic Priority: Low Current Visit: No Qualifiers: Osteoporosis type: unspecified Presence of current pathological fracture: unspecified Qualified Code(s): M81.0 - Age-related osteoporosis without current pathological fracture (8) Chronic headache SNOMED Code(s): 264668472 Code(s): R51 - HEADACHE Status: Chronic Priority: Low Current Visit: No Qualifiers: Headache type: unspecified Intractability: not intractable Qualified Code(s): R51 - Headache (9) Hypothyroidism SNOMED Code(s): 59787984 Code(s): E03.9 - HYPOTHYROIDISM, UNSPECIFIED Status: Chronic Priority: Low Current Visit: No Qualifiers: Hypothyroidism type: unspecified Qualified Code(s): E03.9 - Hypothyroidism, unspecified (10) Chest wall pain SNOMED Code(s): 331005256 Code(s): R07.89 - OTHER CHEST PAIN Status: Acute Priority: High Current Visit: Yes (11) Fall SNOMED Code(s): 2360162, 904407198 Code(s): W19.XXXA - UNSPECIFIED FALL, INITIAL ENCOUNTER Status: Acute Priority: High Current Visit: Yes Qualifiers: Encounter type: initial encounter Qualified Code(s): W19.XXXA - Unspecified fall, initial encounter (12) Hypoxia SNOMED Code(s): 010636545 Code(s): R09.02 - HYPOXEMIA Status: Acute Priority: High Current Visit: Yes (13) Hypertension SNOMED Code(s): 06495746 Code(s): I10 - ESSENTIAL (PRIMARY) HYPERTENSION Status: Chronic Priority: Low Current Visit: No Qualifiers: Hypertension type: essential hypertension Qualified Code(s): I10 - Essential (primary) hypertension (14) Lymphoma SNOMED Code(s): 417333726 Code(s): C85.90 - NON-HODGKIN LYMPHOMA, UNSPECIFIED, UNSPECIFIED SITE St atus: Chronic Priority: Low Current Visit: No Qualifiers: Lymphoma type: unspecified type Lymphoma site: intra-abdominal nodes Qualified Code(s): C85.93 - Non-Hodgkin lymphoma, unspecified, intra-abdominal lymph nodes (15) Back pain SNOMED Code(s): 056695376 Code(s): M54.9 - DORSALGIA, UNSPECIFIED Status: Acute Priority: High Current Visit: Yes Qualifiers: Back pain location: back pain in unspecified location Chronicity: unspecified Back pain laterality: unspecified Qualified Code(s): M54.9 - Dorsalgia, unspecified (16) Neck pain SNOMED Code(s): 64878521 Code(s): M54.2 - CERVICALGIA Status: Acute Priority: High Current Visit: Yes (17) Weight loss SNOMED Code(s): 37620379, 809229687 Code(s): R63.4 - ABNORMAL WEIGHT LOSS Status: Acute Priority: High Current Visit: Yes (18) Hyponatremia SNOMED Code(s): 22191614 Code(s): E87.1 - HYPO-OSMOLALITY AND HYPONATREMIA Status: Chronic Priority: Medium Current Visit: Yes (19) Compression fracture of L3 vertebra SNOMED Code(s): 963275733 Code(s): S32.030A - WEDGE COMPRESSION FRACTURE OF THIRD LUMBAR VERTEBRA, INIT Status: Acute Priority: High Current Visit: Yes Qualifiers: Encounter type: initial encounter Qualified Code(s): S32.030A - Wedge compression fracture of third lumbar vertebra, initial encounter for closed fracture (20) Hyperkalemia SNOMED Code(s): 62646080 Code(s): E87.5 - HYPERKALEMIA Status: Acute Priority: High Current Visit: Yes (21) Sternal fracture SNOMED Code(s): 58562543 Code(s): S22.20XA - UNSP FRACTURE OF STERNUM, INIT ENCNTR FOR CLOSED FRACTURE Status: Acute Priority: High Current Visit: Yes Qualifiers: Encounter type: initial encounter Sternal location: unspecified Fracture type: closed Qualified Code(s): S22.20XA - Unspecified fracture of sternum, initial encounter for closed fracture (22) Weakness SNOMED Code(s): 28040828 Code(s): R53.1 - WEAKNESS Status: Acute Priority: Medium Current Visit: Yes (23) Macrocytosis without anemia SNOMED Code(s): 447924486 Code(s): D75.89 - OTHER SPECIFIED DISEASES OF BLOOD AND BLOOD-FORMING ORGANS Status: Acute Priority: High Current Visit: Yes - Problem List Review Problem List Initiated/Reviewed/Updated: Yes - My Orders Last 24 Hours: My Active Orders 01/19/20 09:00 Metoprolol Succinate [Toprol XL] 50 mg PO DAILY - Assessment Assessment:: Assessment - day of admission 01/17/20 - 89 yo female who fell at home after tripping, landing on buttocks - Denies hitting head but reports back, left hip and chest pain - Denies any other recent falls - History of arthritis and osteoporosis; On Prolia - Utilizes walker. Has surgical shoe on right foot 2/2 toenail issue - CXR and left hip x-rays show nothing acute - Requiring 2L O2 in ED, refusing to take deep breath due to pain - Given 0.25 Dilaudid in ED - 12-lead EKG shows NSR at 61 BPM with no ectopy - Labs - WBC 6.13 - Hgb 13.4 - Platelet 255 - Sodium 130 - Potassium 5.3 - BUN 22 - Creatinine 1.1 - eGFR 47 - Troponin <0.017 - Albumin 3.4 - Admitted observation status for pain control and PT/OT 01/18/20 - Pain has improved with pain medications - Down to 1L O2 - Continues to utilize IS - Last - - Reports left arm numbness - PT/OT recommending SNF - Labs - sodium 131 - Potassium 4.8 - BUN 18 - Creatinine 0.9 - eGFR 59 - Urine osmolality on admission 232 - Urine random creatinine on admission 35.6 - Urine random sodium on admission 28 - Upgrade to inpatient as PT/OT are recommending SNF - Reports significant weight loss over past year and minimal appetite - consult dietary - Hyponatremia - acute on chronic - Chest CT: 1. Sternal fracture with mild displacement. 2. Acute sure within the L3 vertebral body with mild retro-listhesis of the inferior and posterior vertebral line into the central canal by 5 mm. 3. Compression deformities of T8 and T9 is seen which are most likely old. 4. Small bilateral pleural effusions with mild right basilar atelectasis. 5. Nodule within the right upper lung measuring 1.2 cm which is nonspecific guarding etiology but is seen on prior CT exam and appears without significant change. 6. Apical scarring no acute parenchymal changes seen. - Cervical spine CT scan is obtained and interpreted by Dr. Robbins as: 1. Compression deformity of T1 which is most likely old as it is sclerotic. 2. Severe compression deformity at T3 which could be subacute or acute as it appears less sclerotic. 3. There is posterior retrolisthesis of both vertebral bodies (of T1 and T3) to the central canal. At T1 this measures 6 mm and at T3 this measures 5 mm. The fissure room appears posteriorly for the adjacent thoracic cord. 4. Degenerative changes noted above no other acute bony abnormality is appreciated. - CT scan of the thoracic spine is attained and interpreted by Dr. Robbins as: 1. Numerous compression deformities as noted above. Compression deformity within T3 could be acute or subacute. Fracture within L3 is definitely acute. 2. If patient has central cord symptoms, MRI could then be considered. - Dr. Sandhu, neurosurgeon with [facility] in [place] was contacted to discuss scan results. - He reported that these fractures are usually managed the same acutely with pain control, assuming the patient has no central canal signs. - Will review imaging and call if new concerns - Sternal pain > back pain - Discussed sternal Fx with Dr. Piper - reports pain control but nothing surgical to offer 01/19/20 - Patient states Tylenol does not work and has never worked for her pain - VS trend - BP 114-157/67-102 - Tmax 98.1 - HR 64-74 - SatO2 > 93% on 1-2LPM NC - Lab results - Na up from 131 to 132 - K up from 4.8 to 5.2 - GFR down from 59 to 47 01/20/2020 - Received morphine and tramadol this AM - Continued pain - Requiring 1L O2 - No fevers or signs of infection - Continuing PT/OT - Lab results -MCV up from 95.1 to 100.0 -Sodium stable at 132 -Potassium up from 5.2 to 5.4 -Creatinine 1.6 -GFR down to 30 -Anion gap up to 16.4 -IV fluids given - Plan Plan:: Fall Displaced sternal fracture Compression fracture of L3 vertebra Osteoporosis Weakness - Discontinue Tylenol - Pain control with Tramadol - Incentive spirometry - PT/OT - SNF placement Hypertension - Continue home medications Hyponatremia/Hypomagnesemia/Hyperkalemia - High salt diet - Replace magnesium - Repeat labs - Poor oral intake - IV fluids as ordered Macrocytosis -Work-up Hypothyroidism - Continue home levothyroxine Abnormal weight loss - Dietary consult and follow up Glaucoma - Continue home drops PCP: Dr. Bloom PROPHYLAXIS DVT- compression stockings GI- not indicated CODE STATUS: DNR/DNI DISPOSITION: Patient will remain admitted for pain control and SNF placement. LOS >96 hrs due to difficulty obtaining pain control, Placement.
[2020-01-20] MEDS: Losartan 100 MG Tab PO SCH (08:36)
[2020-01-20] MEDS: Metoprolol Succinate 50 MG Tab.ER PO SCH (08:37)
[2020-01-20] MEDS: BIMATOPROST 0.01% EYEBOTH SCH ×2 (08:40→22:10)
[2020-01-20] MEDS: EYE RELIEF EYEBOTH SCH (08:40)
[2020-01-20] MEDS: TIMOLOL MALEATE 0.5% EYEBOTH SCH ×2 (08:40→22:10)
[2020-01-20] MEDS: Sodium Chloride 0.9% 1,000 ML IV SCH ×2 (09:28→22:11)
[2020-01-20] MEDS: Enoxaparin 30 MG/0.3 ML Syringe SUBCUT SCH (15:42)
[2020-01-21] MEDS ORDERED: Sodium Polystyrene Sulfonate 15 GM/60 ML Susp 60 ML Bot PO SCH (08:00)
[2020-01-21] MEDS: Metoprolol Succinate 50 MG Tab.ER PO SCH ×2 (08:16→10:25)
[2020-01-21] MEDS: Losartan 100 MG Tab PO SCH (08:17)
[2020-01-21] MEDS: Levothyroxine 100 MCG Tab PO SCH ×2 (08:17→10:24)
--- NOTE | 2020-01-21 09:24 | PCM.PN ---
- General Info Date of Service: 01/21/20 Admission Dx/Problem (Free Text): Admission Diagnosis/Problem Admission Diagnosis/Problem Hypoxia Functional Status: Reports: Urinating (minimal ). Denies: Pain Controlled, Tolerating Diet (not eating or drinking), Ambulating - Review of Systems General: Reports: Weakness, Fatigue, Malaise. Denies: Fever HEENT: Reports: No Symptoms. Denies: Headaches, Sore Throat Pulmonary: Reports: Shortness of Breath, Pleuritic Chest Pain Cardiovascular: Reports: Chest Pain Gastrointestinal: Reports: No Symptoms. Denies: Abdominal Pain, Constipation, Diarrhea, Nausea, Vomiting Genitourinary: Reports: No Symptoms Musculoskeletal: Reports: Neck Pain, Back Pain Neurological: Reports: Numbness, Tingling, Difficulty Walking, Weakness, Gait Disturbance. Denies: Confusion Psychiatric: Reports: No Symptoms - Patient Data Vitals - Most Recent: Last Vital Signs Temp 97.7 F 01/21/20 08:14 Pulse 76 01/21/20 08:16 Resp 20 01/21/20 08:14 BP 141/70 H 01/21/20 08:17 Pulse Ox 93 L 01/21/20 08:14 Weight - Most Recent: 87 lb 12.8 oz I&O - Last 24 Hours: Intake & Output 01/20/20 01/21/20 01/21/20 22:59 06:59 14:59 Intake Total 700 1044 Output Total 50 Balance 650 1044 Lab Results Last 24 Hours: Laboratory Results - last 24 hr 01/20/20 01/21/20 01/21/20 Range/Units 04:50 05:50 05:50 Percent Retic 1.01 (0.50-1.70) % Sodium 133 L (136-145) mEq/L Potassium 5.7 H (3.5-5.1) mEq/L Chloride 99 (98-107) mEq/L Carbon Dioxide 25 (21-32) mEq/L Anion Gap 14.7 (5-15) BUN 56 H (7-18) mg/dL Creatinine 1.5 H (0.55-1.02) mg/dL Est Cr Clr Drug Dosing 16.06 mL/min Estimated GFR (MDRD) 33 (>60) mL/min BUN/Creatinine Ratio 37.3 H (14-18) Glucose 93 (83-115) mg/dL Calcium 8.2 L (8.5-10.1) mg/dL Phosphorus 3.6 (2.6-4.7) mg/dL Magnesium 2.4 (1.8-2.4) mg/dl Vitamin B12 (193-986) pg/ml Procalcitonin 0.23 H (<0.10) ng/mL 01/21/20 Range/Units 05:50 Percent Retic (0.50-1.70) % Sodium (136-145) mEq/L Potassium (3.5-5.1) mEq/L Chloride (98-107) mEq/L Carbon Dioxide (21-32) mEq/L Anion Gap (5-15) BUN (7-18) mg/dL Creatinine (0.55-1.02) mg/dL Est Cr Clr Drug Dosing mL/min Estimated GFR (MDRD) (>60) mL/min BUN/Creatinine Ratio (14-18) Glucose (83-115) mg/dL Calcium (8.5-10.1) mg/dL Phosphorus (2.6-4.7) mg/dL Magnesium (1.8-2.4) mg/dl Vitamin B12 916 (193-986) pg/ml Procalcitonin (<0.10) ng/mL Med Orders - Current: Current Medications Enoxaparin Sodium (Lovenox) 30 mg SUBCUT Q24H [facility] Last Admin: 01/20/20 15:42 Dose: 30 mg Documented by: Sodium Chloride (Normal Saline) 1,000 mls @ 75 mls/hr IV ASDIRECTED [facility] Stop: 01/21/20 21:34 Last Admin: 01/20/20 22:11 Dose: 75 mls/hr Documented by: Levothyroxine Sodium (Synthroid) 100 mcg PO ACBREAKFAST [facility] Last Admin: 01/21/20 08:17 Dose: 100 mcg Documented by: Losartan Potassium (Cozaar) 100 mg PO DAILY [facility] Last Admin: 01/21/20 08:17 Dose: 100 mg Documented by: Metoprolol Succinate (Toprol Xl) 50 mg PO DAILY [facility] Last Admin: 01/21/20 08:16 Dose: 50 mg Documented by: Morphine Sulfate (Morphine) 1 mg IVPUSH Q4H PRN PRN Reason: Breakthrough Pain Last Admin: 01/20/20 07:12 Dose: 1 mg Documented by: Bimatoprost 0.01% (Ptom) 1 drop EYEBOTH BID [facility] Last Admin: 01/20/20 22:10 Dose: 1 drop Documented by: Eye Relief Drops (Ptom) 0 each EYEBOTH DAILY [facility] Last Admin: 01/20/20 08:40 Dose: 1 each Documented by: Timolol Maleate 0.5% (Ptom) 1 drop EYEBOTH BID [facility] Last Admin: 01/20/20 22:10 Dose: 1 drop Documented by: Ondansetron HCl (Zofran) 4 mg IV Q6H PRN PRN Reason: Nausea/Vomiting Senna/Docusate Sodium (Senna Plus) 1 tab PO BID [facility] Last Admin: 01/21/20 08:17 Dose: 1 tab Documented by: Sodium Chloride (Saline Flush) 10 ml FLUSH ASDIRECTED PRN PRN Reason: Keep Vein Open Last Admin: 01/17/20 07:36 Dose: 10 ml Documented by: Sodium Polystyrene Sulfonate (Kayexalate) 15 gm PO Q8H [facility] Tramadol HCl (Ultram) 50 - 100 mg PO Q12H PRN PRN Reason: PAIN Last Admin: 01/20/20 22:09 Dose: 50 mg Documented by: Discontinued Medications Acetaminophen (Tylenol) 650 mg PO Q4H PRN PRN Reason: Pain (Mild 1-3)/fever Last Admin: 01/19/20 05:45 Dose: 650 mg Documented by: Acetaminophen/Codeine Phosphate (Tylenol With Codeine No.3 300mg/30mg) 1 tab PO Q6H PRN PRN Reason: moderate pain Last Admin: 01/19/20 05:45 Dose: 1 tab Documented by: Hydralazine HCl (Apresoline) 10 mg IVPUSH ONETIME ONE Stop: 01/17/20 15:01 Last Admin: 01/17/20 15:23 Dose: 10 mg Documented by: Hydromorphone HCl (Dilaudid) 0.25 mg IVPUSH ONETIME ONE Stop: 01/17/20 08:31 Last Admin: 01/17/20 09:10 Dose: 0.25 mg Documented by: Sodium Chloride (Normal Saline) 1,000 mls @ 75 mls/hr IV ASDIRECTED [facility] Stop: 01/18/20 03:49 Last Admin: 01/17/20 15:24 Dose: 75 mls/hr Documented by: Levothyroxine Sodium (Synthroid) 100 mcg PO ACBREAKFAST [facility] Last Admin: 01/18/20 05:15 Dose: 100 mcg Documented by: Metoprolol Succinate (Toprol Xl) 50 mg PO DAILY [facility] Last Admin: 01/18/20 08:13 Dose: 50 mg Documented by: Morphine Sulfate (Morphine) 0.5 mg IVPUSH Q4H PRN PRN Reason: severe pain Last Admin: 01/17/20 12:57 Dose: 0.5 mg Documented by: Spironolactone 50 Mg (Ptom) 0 mg PO DAILY [facility] - Exam Quality Assessment: No: Supplemental Oxygen (discontinued - cumfort care ), DVT Prophylaxis (discontinued - comfort care ) General: Oriented (answers simple questions ), Cooperative, Moderate Distress (reports pain at times ), Lethargic HEENT: Pupils Equal Neck: Supple, Trachea Midline Lungs: Normal Respiratory Effort, Decreased Breath Sounds Cardiovascular: Regular Rate, Irregular Rhythm (PACs) GI/Abdominal Exam: Normal Bowel Sounds, Soft, Non-Tender, No Distention (Female) Exam: Deferred Extremities: Normal Inspection, Normal Range of Motion, Non-Tender, No Pedal Edema Skin: Warm, Dry, Intact Neurological: No New Focal Deficit Sepsis Event Note - Evaluation Sepsis Screening Result: No Definite Risk - Focused Exam Vital Signs: Vital Signs Temp Temp Pulse Resp BP BP Pulse Ox 01/21/20 08:17 141/70 H 01/21/20 08:16 76 141/70 H 01/21/20 08:14 97.7 F 76 20 141/70 H 93 L 01/21/20 04:00 98.4 F 18 124/57 L 94 L 01/20/20 22:05 73 17 94 L 01/20/20 22:00 99.0 F 130/98 H - Problem List & Annotations (1) Glaucoma SNOMED Code(s): 61738962 Code(s): H40.9 - UNSPECIFIED GLAUCOMA Status: Chronic Priority: Low Current Visit: No Qualifiers: Glaucoma type: unspecified Laterality: unspecified laterality Qualified Code(s): H40.9 - Unspecified glaucoma (2) Macular degeneration SNOMED Code(s): 749562596 Code(s): H35.30 - UNSPECIFIED MACULAR DEGENERATION Status: Chronic Priority: Low Current Visit: No Qualifiers: Macular degeneration type: unspecified type Eye laterality: unspecified Qualified Code(s): H35.30 - Unspecified macular degeneration (3) CAD (coronary artery disease) SNOMED Code(s): 78311320 Code(s): I25.10 - ATHSCL HEART DISEASE OF [place] CORONARY ARTERY W/O ANG PCTRS Status: Chronic Priority: Low Current Visit: No Qualifiers: Coronary Disease-Associated Artery/Lesion type: unspecified vessel or lesion type [place] vs. transplanted heart: unspecified whether [place] or transplanted heart Associated angina: angina presence unspecified Qualified Code(s): I25.10 - Atherosclerotic heart disease of [place] coronary artery without angina pectoris (4) HLD (hyperlipidemia) SNOMED Code(s): 85473466 Code(s): E78.5 - HYPERLIPIDEMIA, UNSPECIFIED Status: Chronic Priority: Low Current Visit: No Qualifiers: Hyperlipidemia type: unspecified Qualified Code(s): E78.5 - Hyperlipidemia, unspecified (5) GERD (gastroesophageal reflux disease) SNOMED Code(s): 431239276 Code(s): K21.9 - GASTRO-ESOPHAGEAL REFLUX DISEASE WITHOUT ESOPHAGITIS Status: Chronic Priority: Low Current Visit: No Qualifiers: Esophagitis presence: esophagitis presence not specified Qualified Code(s): K21.9 - Gastro-esophageal reflux disease without esophagitis (6) Arthritis SNOMED Code(s): 1850172 Code(s): M19.90 - UNSPECIFIED OSTEOARTHRITIS, UNSPECIFIED SITE Status: Chronic Priority: Low Current Visit: No (7) Osteoporosis SNOMED Code(s): 67563734 Code(s): M81.0 - AGE-RELATED OSTEOPOROSIS W/O CURRENT PATHOLOGICAL FRACTURE Status: Chronic Priority: Low Current Visit: No Qualifiers: Osteoporosis type: unspecified Presence of current pathological fracture: unspecified Qualified Code(s): M81.0 - Age-related osteoporosis without current pathological fracture (8) Chronic headache SNOMED Code(s): 702406037 Code(s): R51 - HEADACHE Status: Chronic Priority: Low Current Visit: No Qualifiers: Headache type: unspecified Intractability: not intractable Qualified Code(s): R51 - Headache (9) Hypothyroidism SNOMED Code(s): 64048900 Code(s): E03.9 - HYPOTHYROIDISM, UNSPECIFIED Status: Chronic Priority: Low Current Visit: No Qualifiers: Hypothyroidism type: unspecified Qualified Code(s): E03.9 - Hypothyroidism, unspecified (10) Chest wall pain SNOMED Code(s): 732733692 Code(s): R07.89 - OTHER CHEST PAIN Status: Acute Priority: High Current Visit: Yes (11) Fall SNOMED Code(s): 3649679, 456815688 Code(s): W19.XXXA - UNSPECIFIED FALL, INITIAL ENCOUNTER Status: Acute Priority: High Current Visit: Yes Qualifiers: Encounter type: initial encounter Qualified Code(s): W19.XXXA - Unspecified fall, initial encounter (12) Hypoxia SNOMED Code(s): 595957010 Code(s): R09.02 - HYPOXEMIA Status: Acute Priority: High Current Visit: Yes (13) Hypertension SNOMED Code(s): 12420355 Code(s): I10 - ESSENTIAL (PRIMARY) HYPERTENSION Status: Chronic Priority: Low Current Visit: No Qualifiers: Hypertension type: essential hypertension Qualified Code(s): I10 - Essential (primary) hypertension (14) Lymphoma SNOMED Code(s): 601910961 Code(s): C85.90 - NON-HODGKIN LYMPHOMA, UNSPECIFIED, UNSPECIFIED SITE Status: Chronic Priority: Low Current Visit: No Qualifiers: Lymphoma type: unspecified type Lymphoma site: intra-abdominal nodes Qualified Code(s): C85.93 - Non-Hodgkin lymphoma, unspecified, intra-abdominal lymph nodes (15) Back pain SNOMED Code(s): 864412233 Code(s): M54.9 - DORSALGIA, UNSPECIFIED Status: Acute Priority: High Current Visit: Yes Qualifiers: Back pain location: back pain in unspecified location Chronicity: unspecified Back pain laterality: unspecified Qualified Code(s): M54.9 - Dorsalgia, unspecified (16) Neck pain SNOMED Code(s): 14407878 Code(s): M54.2 - CERVICALGIA Status: Acute Priority: High Current Visit: Yes (17) Weight loss SNOMED Code(s): 56454470, 481285222 Code(s): R63.4 - ABNORMAL WEIGHT LOSS Status: Acute Priority: High Current Visit: Yes (18) Hyponatremia SNOMED Code(s): 70592278 Code(s): E87.1 - HYPO-OSMOLALITY AND HYPONATREMIA Status: Chronic Priority: Medium Current Visit: Yes (19) Compression fracture of L3 vertebra SNOMED Code(s): 313795608 Code(s): S32.030A - WEDGE COMPRESSION FRACTURE OF THIRD LUMBAR VERTEBRA, INIT Status: Acute Priority: High Current Visit: Yes Qualifiers: Encounter type: initial encounter Qualified Code(s): S32.030A - Wedge compression fracture of third lumbar vertebra, initial encounter for closed fracture (20) Hyperkalemia SNOMED Code(s): 62622667 Code(s): E87.5 - HYPERKALEMIA Status: Acute Priority: High Current Visit: Yes (21) Sternal fracture SNOMED Code(s): 84399369 Code(s): S22.20XA - UNSP FRACTURE OF STERNUM, INIT ENCNTR FOR CLOSED FRACTURE Status: Acute Priority: High Current Visit: Yes Qualifiers: Encounter type: initial encounter Sternal location: unspecified Fracture type: closed Qualified Code(s): S22.20XA - Unspecified fracture of sternum, initial encounter for closed fracture (22) Weakness SNOMED Code(s): 12759157 Code(s): R53.1 - WEAKNESS Status: Acute Priority: Medium Current Visit: Yes (23) Macrocytosis without anemia SNOMED Code(s): 205717865 Code(s): D75.89 - OTHER SPECIFIED DISEASES OF BLOOD AND BLOOD-FORMING ORGANS Status: Acute Priority: High Current Visit: Yes (24) Failure to thrive SNOMED Code(s): 91343796 Code(s): TKW3908 - Status: Acute Priority: High Current Visit: Yes Qualifiers: Failure to thrive age range: in adult Qualified Code(s): R62.7 - Adult failure to thrive (25) End of life care SNOMED Code(s): 959573907, 572746430 Code(s): Z51.5 - ENCOUNTER FOR PALLIATIVE CARE Status: Acute Priority: High Current Visit: Yes - Problem List Review Problem List Initiated/Reviewed/Updated: Yes - My Orders Last 24 Hours: My Active Orders 01/21/20 05:50 FOLATE, RBC [REF] AM 01/21/20 07:55 Patient Status [ADT] Routine 01/21/20 08:00 Sodium Polystyrene Sulfonate [Kayexalate] 15 gm PO Q8H - Assessment Assessment:: Assessment - day of admission 01/17/20 - 89 yo female who fell at home after tripping, landing on buttocks - Denies hitting head but reports back, left hip and chest pain - Denies any other recent falls - History of arthritis and osteoporosis; On Prolia - Utilizes walker. Has surgical shoe on right foot 2/2 toenail issue - CXR and left hip x-rays show nothing acute - Requiring 2L O2 in ED, refusing to take deep breath due to pain - Given 0.25 Dilaudid in ED - 12-lead EKG shows NSR at 61 BPM with no ectopy - Labs - WBC 6.13 - Hgb 13.4 - Platelet 255 - Sodium 130 - Potassium 5.3 - BUN 22 - Creatinine 1.1 - eGFR 47 - Troponin <0.017 - Albumin 3.4 - Admitted observation status for pain control and PT/OT 01/18/20 - Pain has improved with pain medications - Down to 1L O2 - Continues to utilize IS - Last - Reports left arm numbness - PT/OT recommending SNF - Labs - sodium 131 - Potassium 4.8 - BUN 18 - Creatinine 0.9 - eGFR 59 - Urine osmolality on admission 232 - Urine random creatinine on admission 35.6 - Urine random sodium on admission 28 - Upgrade to inpatient as PT/OT are recommending SNF - Reports significant weight loss over past year and minimal appetite - consult dietary - Hyponatremia - acute on chronic - Chest CT: 1. Sternal fracture with mild displacement. 2. Acute sure within the L3 vertebral body with mild retro-listhesis of the inferior and posterior vertebral line into the central canal by 5 mm. 3. Compression deformities of T8 and T9 is seen which are most likely old. 4. Small bilateral pleural effusions with mild right basilar atelectasis. 5. Nodule within the right upper lung measuring 1.2 cm which is nonspecific guarding etiology but is seen on prior CT exam and appears without significant change. 6. Apical scarring no acute parenchymal changes seen. - Cervical spine CT scan is obtained and interpreted by Dr. Robbins as: 1. Compression deformity of T1 which is most likely old as it is sclerotic. 2. Severe compression deformity at T3 which could be subacute or acute as it appears less sclerotic. 3. There is posterior retrolisthesis of both vertebral bodies (of T1 and T3) to the central canal. At T1 this measures 6 mm and at T3 this measures 5 mm. The fissure room appears posteriorly for the adjacent thoracic cord. 4. Degenerative changes noted above no other acute bony abnormality is appreciated. - CT scan of the thoracic spine is attained and interpreted by Dr. Robbins as: 1. Numerous compression deformities as noted above. Compression deformity within T3 could be acute or subacute. Fracture within L3 is definitely acute. 2. If patient has central cord symptoms, MRI could then be considered. - Dr. Sandhu, neurosurgeon with [facility] in [place] was contacted to discuss scan results. - He reported that these fractures are usually managed the same acutely with pain control, assuming the patient has no central canal signs. - Will review imaging and call if new concerns - Sternal pain > back pain - Discussed sternal Fx with Dr. Piper - reports pain control but nothing surgical to offer 01/19/20 - Patient states Tylenol does not work and has never worked for her pain - VS trend - BP 114-157/67-102 - Tmax 98.1 - HR 64-74 - SatO2 > 93% on 1-2LPM NC - Lab results - Na up from 131 to 132 - K up from 4.8 to 5.2 - GFR down from 59 to 47 01/20/2020 - Received morphine and tramadol this AM - Continued pain - Requiring 1L O2 - No fevers or signs of infection - Continuing PT/OT - Lab results -MCV up from 95.1 to 100.0 -Sodium stable at 132 -Potassium up from 5.2 to 5.4 -Creatinine 1.6 -GFR down to 30 -Anion gap up to 16.4 -IV fluids given 01/21/2020 In to see Sharlene. She has not had any real oral intake over the past 2 days. Patient continues to complain of significant pain even with increased oral medications to the point where she becomes sedated. Patient is alert enough to answer basic questions and states that she wants to and that she is ready to give up. She reports she is having sever pain all over. Discussion had with patient's daughter, who is also her POA, and she agrees patient has been talking to her who several years ago while laying in bed. She reports patient has been telling her that she would like to as well. We discussed comfort care and daughter agrees that this would be in line with what her mother would like. Discussed options during comfort care and she reports we should stop oxygen, IV fluids, lab draws, therapies, telemetry, and home medications. They would like medications for pain/anxiety only. CODE STATUS updated to comfort care. [employer] made aware of situation. We will continue to attempt to obtain better pain control now utilizing comfort care. Daughter is aware that increased pain control may mean more sedation and respiratory depression for patient. She states that she would just like her mother to be comfortable. - Plan Plan:: End of life care -Discontinue O2 -Discontinue home medications -Discontinued PT/OT -Discontinued IV fluids -Discontinue telemetry -Discontinue lab draws -Morphine for pain -Ativan for anxiety -Spiritual care consultation -Vital signs per shift -Bedrest -Regular diet if able to tolerate per comfort care -Eased visitor restrictions for comfort care INACTIVE: Fall Displaced sternal fracture Compression fracture of L3 vertebra Osteoporosis Weakness Failure to thrive Hypertension Hyponatremia/Hypomagnesemia/Hyperkalemia Macrocytosis Hypothyroidism Abnormal weight loss Glaucoma PCP: Dr. Bloom PROPHYLAXIS DVT- compression stockings GI- not indicated CODE STATUS: DNR/DNI DISPOSITION: Patient will remain admitted for pain control and SNF placement. LOS >96 hrs due to difficulty obtaining pain control, placement, now comfort care
[2020-01-21] MEDS ORDERED: Morphine 2 MG/ML SYRINGE IVPUSH PRN (11:05)
[2020-01-21] MEDS ORDERED: LORazepam 0.5 MG Tab PO PRN (11:06)
[2020-01-21 11:53] VITALS: BP 155/83; PULSE 77
[2020-01-21] MEDS: EYE RELIEF EYEBOTH SCH (11:53)
[2020-01-21] MEDS: BIMATOPROST 0.01% EYEBOTH SCH (11:53)
[2020-01-21] MEDS: TIMOLOL MALEATE 0.5% EYEBOTH SCH (11:53)
--- NOTE | 2020-01-21 14:08 | PCM.DCSUM1 ---
Discharge Summary - Hospital Course HPI Initial Comments: This is an 89-year-old female who presents to ED via [facility] after a fall resulting in chest pain. She reports that she was walking with her walker, misstepped and fell backwards landing on her buttocks. Denies hitting her head or losing consciousness. She states she then developed back pain which turned into chest pain. Denies shortness of breath. She also reports mild left hip pain. Does have a history of a prior pelvic fracture. She does have a postop shoe present on her foot. She reports that they have been dealing with a ingrown toenail there. In the ED she was afebrile. Pulse was 61. Respirations 20. Blood pressure was high at 210/82. Pulse ox 94% on room air. Twelve-lead EKG was obtained showing a sinus rhythm at 61 bpm with no ectopy. CBC is grossly normal. CMP shows a mildly low sodium of 130, although in reviewing prior records it appears she is usually hyponatremic. Potassium is slightly elevated at 5.3. Creatinine is slightly elevated 1.1 BUN is 22. GFR is 47. Troponin is negative. She is given 0.25 Dilaudid for pain. Chest x-ray is obtained showing nothing acute. Hip x-rays obtained showing mild degenerative change within the left hip. An old fracture within the right superior and inferior pubic rami is noted but nothing acute. In the ED she was requiring oxygen 2 L. ABG is pending. 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 She is a non-smoker. PCP is Dr. Bloom. She subsequently admitted to the medical floor observation status for pain control and further work-up/treatment of her hypoxia. Diagnosis: Stroke: No - Discharge Data Discharge Date: 01/21/20 (Admit date: 01/17/20) Discharge Disposition: 20 Preliminary Cause of *Q: Cardiac Arrest Condition: - Referral to Home Health Primary Care Physician: Wilbert Bloom MD - Discharge Diagnosis/Problem(s) (1) Glaucoma SNOMED Code(s): 78734590 ICD Code: H40.9 - UNSPECIFIED GLAUCOMA Status: Chronic Priority: Low Current Visit: No Qualifiers: Glaucoma type: unspecified Laterality: unspecified laterality Qualified Code(s): H40.9 - Unspecified glaucoma (2) Macular degeneration SNOMED Code(s): 374254072 ICD Code: H35.30 - UNSPECIFIED MACULAR DEGENERATION Status: Chronic Priority: Low Current Visit: No Qualifiers: Macular degeneration type: unspecified type Eye laterality: unspecified Qualified Code(s): H35.30 - Unspecified macular degeneration (3) CAD (coronary artery disease) SNOMED Code(s): 04828628 ICD Code: I25.10 - ATHSCL HEART DISEASE OF [place] CORONARY ARTERY W/O ANG PCTRS Status: Chronic Priority: Low Current Visit: No Qualifiers: Coronary Disease-Associated Artery/Lesion type: unspecified vessel or lesion type [place] vs. transplanted heart: unspecified whether [place] or transplanted heart Associated angina: angina presence unspecified Qualified Code(s): I25.10 - Atherosclerotic heart disease of [place] coronary artery without angina pectoris (4) HLD (hyperlipidemia) SNOMED Code(s): 63410719 ICD Code: E78.5 - HYPERLIPIDEMIA, UNSPECIFIED Status: Chronic Priority: Low Current Visit: No Qualifiers: Hyperlipidemia type: unspecified Qualified Code(s): E78.5 - Hyperlipidemia, unspecified (5) GERD (gastroesophageal reflux disease) SNOMED Code(s): 179951640 ICD Code: K21.9 - GASTRO-ESOPHAGEAL REFLUX DISEASE WITHOUT ESOPHAGITIS Status: Chronic Priority: Low Current Visit: No Qualifiers: Esophagitis presence: esophagitis presence not specified Qualified Code(s): K21.9 - Gastro-esophageal reflux disease without esophagitis (6) Arthritis SNOMED Code(s): 4501232 ICD Code: M19.90 - UNSPECIFIED OSTEOARTHRITIS, UNSPECIFIED SITE Status: Chronic Priority: Low Current Visit: No (7) Osteoporosis SNOMED Code(s): 68033688 ICD Code: M81.0 - AGE-RELATED OSTEOPOROSIS W/O CURRENT PATHOLOGICAL FRACTURE Status: Chronic Priority: Low Current Visit: No Qualifiers: Osteoporosis type: unspecified Presence of current pathological fracture: unspecified Qualified Code(s): M81.0 - Age-related osteoporosis without current pathological fracture (8) Chronic headache SNOMED Code(s): 622218676 ICD Code: R51 - HEADACHE Status: Chronic Priority: Low Current Visit: No Qualifiers: Headache type: unspecified Intractability: not intractable Qualified Code(s): R51 - Headache (9) Hypothyroidism SNOMED Code(s): 39290067 ICD Code: E03.9 - HYPOTHYROIDISM, UNSPECIFIED Status: Chronic Priority: Low Current Visit: No Qualifiers: Hypothyroidism type: unspecified Qualified Code(s): E03.9 - Hypothyroidism, unspecified (10) Chest wall pain SNOMED Code(s): 601260431 ICD Code: R07.89 - OTHER CHEST PAIN Status: Acute Priority: High Curr ent Visit: Yes (11) Fall SNOMED Code(s): 0970259, 892153327 ICD Code: W19.XXXA - UNSPECIFIED FALL, INITIAL ENCOUNTER Status: Acute Priority: High Current Visit: Yes Qualifiers: Encounter type: initial encounter Qualified Code(s): W19.XXXA - Unspecified fall, initial encounter (12) Hypoxia SNOMED Code(s): 131165467 ICD Code: R09.02 - HYPOXEMIA Status: Acute Priority: High Current Visit: Yes (13) Hypertension SNOMED Code(s): 94383520 ICD Code: I10 - ESSENTIAL (PRIMARY) HYPERTENSION Status: Chronic Priority: Low Current Visit: No Qualifiers: Hypertension type: essential hypertension Qualified Code(s): I10 - [place] tial (primary) hypertension (14) Lymphoma SNOMED Code(s): 318868849 ICD Code: C85.90 - NON-HODGKIN LYMPHOMA, UNSPECIFIED, UNSPECIFIED SITE Status: Chronic Priority: Low Current Visit: No Qualifiers: Lymphoma type: unspecified type Lymphoma site: intra-abdominal nodes Qualified Code(s): C85.93 - Non-Hodgkin lymphoma, unspecified, intra-abdominal lymph nodes (15) Back pain SNOMED Code(s): 485327825 ICD Code: M54.9 - DORSALGIA, UNSPECIFIED Status: Acute Priority: High Current Visit: Yes Qualifiers: Back pain location: back pain in unspecified location Chronicity: unspecified Back pain laterality: unspecified Qualified Code(s): M54.9 - Dorsalgia, unspecified (16) Neck pain SNOMED Code(s): 58953253 ICD Code: M54.2 - CERVICALGIA Status: Acute Priority: High Current Visit: Yes (17) Weight loss SNOMED Code(s): 53307472, 369896491 ICD Code: R63.4 - ABNORMAL WEIGHT LOSS Status: Acute Priority: High Current Visit: Yes (18) Hyponatremia SNOMED Code(s): 94434850 ICD Code: E87.1 - HYPO-OSMOLALITY AND HYPONATREMIA Status: Chronic Priority: Medium Current Visit: Yes (19) Compression fracture of L3 vertebra SNOMED Code(s): 122198234 ICD Code: S32.030A - WEDGE COMPRESSION FRACTURE OF THIRD LUMBAR VERTEBRA, INIT Status: Acute Priority: High Current Visit: Yes Qualifiers: Encounter type: initial encounter Qualified Code(s): S32.030A - Wedge compression fracture of third lumbar vertebra, initial encounter for closed fracture (20) Hyperkalemia SNOMED Code(s): 33522129 ICD Code: E87.5 - HYPERKALEMIA Status: Acute Priority: High Current Visit: Yes (21) Sternal fracture SNOMED Code(s): 41184377 ICD Code: S22.20XA - UNSP FRACTURE OF STERNUM, INIT ENCNTR FOR CLOSED FRACTURE Status: Acute Priority: High Current Visit: Yes Qualifiers: Encounter type: initial encounter Sternal location: unspecified Fracture type: closed Qualified Code(s): S22.20XA - Unspecified fracture of sternum, initial encounter for closed fracture (22) Weakness SNOMED Code(s): 96932111 ICD Code: R53.1 - WEAKNESS Status: Acute Priority: Medium Current Visit: Yes (23) Macrocytosis without anemia SNOMED Code(s): 483638391 ICD Code: D75.89 - OTHER SPECIFIED DISEASES OF BLOOD AND BLOOD-FORMING ORGANS Status: Acute Priority: High Current Visit: Yes (24) Failure to thrive SNOMED Code(s): 85800088 ICD Code: QPL2397 - Status: Acute Priority: High Current Visit: Yes Qualifiers: Failure to thrive age range: in adult Qualified Code(s): R62.7 - Adult failure to thrive (25) End of life care SNOMED Code(s): 465899147, 897109484 ICD Code: Z51.5 - ENCOUNTER FOR PALLIATIVE CARE Status: Acute Priority: High Current Visit: Yes - Patient Summary/Data Consults: Consultations 01/17/20 11:57 Consult to Case Management/Snow Groomer [CONS] Routine Consult to Spiritual Care [CONS] Routine 09/01/20 10:13 Consult to Hose Maker [CONS] Routine Labs Pending at D/C: None Hospital Course: Assessment - day of admission 01/17/20 - 89 yo female who fell at home after tripping, landing on buttocks - Denies hitting head but reports back, left hip and chest pain - Denies any other recent falls - History of arthritis and osteoporosis; On Prolia - Utilizes walker. Has surgical shoe on right foot 2/2 toenail issue - CXR and left hip x-rays show nothing acute - Requiring 2L O2 in ED, refusing to take deep breath due to pain - Given 0.25 Dilaudid in ED - 12-lead EKG shows NSR at 61 BPM with no ectopy - Labs - WBC 6.13 - Hgb 13.4 - Platelet 255 - Sodium 130 - Potassium 5.3 - BUN 22 - Creatinine 1.1 - eGFR 47 - Troponin <0.017 - Albumin 3.4 - Admitted observation status for pain control and PT/OT 01/18/20 - Pain has improved with pain medications - Down to 1L O2 - Continues to utilize IS - Last - - Reports left arm numbness - PT/OT recommending SNF - Labs - sodium 131 - Potassium 4.8 - BUN 18 - Creatinine 0.9 - eGFR 59 - Urine osmolality on admission 232 - Urine random creatinine on admission 35.6 - Urine random sodium on admission 28 - Upgrade to inpatient as PT/OT are recommending SNF - Reports significant weight loss over past year and minimal appetite - consult dietary - Hyponatremia - acute on chronic - Chest CT: 1. Sternal fracture with mild displacement. 2. Acute sure within the L3 vertebral body with mild retro-listhesis of the inferior and posterior vertebral line into the central canal by 5 mm. 3. Compression deformities of T8 and T9 is seen which are most likely old. 4. Small bilateral pleural effusions with mild right basilar atelectasis. 5. Nodule within the right upper lung measuring 1.2 cm which is nonspecific guarding etiology but is seen on prior CT exam and appears without significant change. 6. Apical scarring no acute parenchymal changes seen. - Cervical spine CT scan is obtained and interpreted by Dr. Robbins as: 1. Compression deformity of T1 which is most likely old as it is sclerotic. 2. Severe compression deformity at T3 which could be subacute or acute as it appears less sclerotic. 3. There is posterior retrolisthesis of both vertebral bodies (of T1 and T3) to the central canal. At T1 this measures 6 mm and at T3 this measures 5 mm. The fissure room appears posteriorly for the adjacent thoracic cord. 4. Degenerative changes noted above no other acute bony abnormality is appreciated. - CT scan of the thoracic spine is attained and interpreted by Dr. Robbins as: 1. Numerous compression deformities as noted above. Compression deformity within T3 could be acute or subacute. Fracture within L3 is definitely acute. 2. If patient has central cord symptoms, MRI could then be considered. - Dr. Sandhu, neurosurgeon with [facility] in [place] was contacted to discuss scan results. - He reported that these fractures are usually managed the same acutely with pain control, assuming the patient has no central canal signs. - Will review imaging and call if new concerns - Sternal pain > back pain - Discussed sternal Fx with Dr. Piper - reports pain control but nothing surgical to offer 01/19/20 - Patient states Tylenol does not work and has never worked for her pain - VS trend - BP 114-157/67-102 - Tmax 98.1 - HR 64-74 - SatO2 > 93% on 1-2LPM NC - Lab results - Na up from 131 to 132 - K up from 4.8 to 5.2 - GFR down from 59 to 47 01/20/2020 - Received morphine and tramadol this AM - Continued pain - Requiring 1L O2 - No fevers or signs of infection - Continuing PT/OT - Lab results -MCV up from 95.1 to 100.0 -Sodium stable at 132 -Potassium up from 5.2 to 5.4 -Creatinine 1.6 -GFR down to 30 -Anion gap up to 16.4 -IV fluids given 01/21/2020 In to see Sharlene. She has not had any real oral intake over the past 2 days. Patient continues to complain of significant pain even with increased oral medications to the point where she becomes sedated. Patient is alert enough to answer basic questions and states that she wants to and that she is ready to give up. She reports she is having sever pain all over. Discussion had with patient's daughter, who is also her POA, and she agrees patient has been talking to her who several years ago while laying in bed. She reports patient has been telling her that she would like to as well. We discussed comfort care and daughter agrees that this would be in line with what her mother would like. Discussed options during comfort care and she reports we should stop oxygen, IV fluids, lab draws, therapies, telemetry, and home medications. They would like medications for pain/anxiety only. CODE STATUS updated to comfort care. Sample Wrapper made aware of situation. We will continue to attempt to obtain better pain control now utilizing comfort care. Daughter is aware that increased pain control may mean more sedation and respiratory depression for kirstin varma. She states that she would just like her mother to be comfortable. 01/21/2020 addendum Notified by nursing that patient has . Found patient in room with nursing, family, and Dr. Duncan. Family was at bedside when patient and noted she took a deep breath and then went apneic. Patient is pulseless and apneic. Time of 1400. Family asks that we contact [facility] service. - Discharge Plan *PRESCRIPTION DRUG MONITORING PROGRAM REVIEWED*: No *COPY OF PRESCRIPTION DRUG MONITORING REPORT IN PATIENT KAREN: No Home Medications: Home Meds Levothyroxine [Synthroid] 100 mcg PO DAILY 11/11/14 [History] Lutein/Minerals/Vit A,C & E [Ocuvite] 1 tab PO 2100 11/11/14 [History] Metoprolol Succinate [Toprol XL 50mg] 50 mg PO DAILY 11/11/14 [History] timoloL maleate [Timoptic 0.5% Ophth Soln] 1 drop EYEBOTH BID 07/19/15 [History] Losartan Potassium [Cozaar] 100 mg PO DAILY 07/21/15 [History] Bimatoprost [LUMIGAN 0.01% Ophth Soln] 1 drop EYEBOTH BID 02/25/17 [History] Furosemide [Lasix] 20 mg PO DAILY 09/29/17 [History] Calcium Carb, Citrate/Vit D3 [Calcium + D3 ER Tablet] 1 tab PO DAILY 12/03/17 [History] Carboxymethylcellulos/Glycerin [Refresh Optive Gel Eye Drops] 1 each EYEBOTH DAILY 12/03/17 [History] Denosumab [Prolia] 1 injection SQ ASDIRECTED 12/03/17 [History] Excedrin Extra Strength 1 tab PO Q6HR 12/03/17 [History] Spironolactone 50 mg PO DAILY 01/17/20 [History] Forms: ED Department Discharge Referrals: Wilbert Bloom MD [Primary Care Provider] - - Discharge Summary/Plan Comment DC Time >30 min.: No - General Info Date of Service: 01/21/20 Admission Dx/Problem (Free Text: Admission Diagnosis/Problem Admission Diagnosis/Problem Hypoxia - Review of Systems Systems Review Comment: Patient unresponsive - Patient Data Vitals - Most Recent: Last Vital Signs Temp 97.5 F 01/21/20 11:01 Pulse 77 01/21/20 11:01 Resp 20 01/21/20 11:01 BP 155/83 H 01/21/20 11:01 Pulse Ox 97 01/21/20 11:01 Weight - Most Recent: 87 lb 12.8 oz I&O - Last 24 hours: Intake & Output 01/20/20 01/21/20 01/21/20 22:59 06:59 14:59 Intake Total 700 1044 Output Total 50 Balance 650 1044 Lab Results - Last 24 hrs: Laboratory Results - last 24 hr 01/20/20 01/21/20 01/21/20 Range/Units 04:50 05:50 05:50 Percent Retic 1.01 (0.50-1.70) % Sodium 133 L (136-145) mEq/L Potassium 5.7 H (3.5-5.1) mEq/L Chloride 99 (98-107) mEq/L Carbon Dioxide 25 (21-32) mEq/L Anion Gap 14.7 (5-15) BUN 56 H (7-18) mg/dL Creatinine 1.5 H (0.55-1.02) mg/dL Est Cr Clr Drug Dosing 16.06 mL/min Estimated GFR (MDRD) 33 (>60) mL/min BUN/Creatinine Ratio 37.3 H (14-18) Glucose 93 (83-115) mg/dL Calcium 8.2 L (8.5-10.1) mg/dL Phosphorus 3.6 (2.6-4.7) mg/dL Magnesium 2.4 (1.8-2.4) mg/dl Vitamin B12 (193-986) pg/ml Procalcitonin 0.23 H (<0.10) ng/mL 01/21/20 Range/Units 05:50 Percent Retic (0.50-1.70) % Sodium (136-145) mEq/L Potassium (3.5-5.1) mEq/L Chloride (98-107) mEq/L Carbon Dioxide (21-32) mEq/L Anion Gap (5-15) BUN (7-18) mg/dL Creatinine (0.55-1.02) mg/dL Est Cr Clr Drug Dosing mL/min Estimated GFR (MDRD) (>60) mL/min BUN/Creatinine Ratio (14-18) Glucose (83-115) mg/dL Calcium (8.5-10.1) mg/dL Phosphorus (2.6-4.7) mg/dL Magnesium (1.8-2.4) mg/dl Vitamin B12 916 (193-986) pg/ml Procalcitonin (<0.10) ng/mL Med Orders - Current: Current Medications Lorazepam (Ativan) 0.5 mg PO Q4H PRN PRN Reason: Anxiety Morphine Sulfate (Morphine) 1 mg IVPUSH Q2H PRN PRN Reason: Pain Last Admin: 01/21/20 11:10 Dose: 1 mg Documented by: Ondansetron HCl (Zofran) 4 mg IV Q6H PRN PRN Reason: Nausea/Vomiting Sodium Chloride (Saline Flush) 10 ml FLUSH ASDIRECTED PRN PRN Reason: Keep Vein Open Last Admin: 01/17/20 07:36 Dose: 10 ml Documented by: Discontinued Medications Acetaminophen (Tylenol) 650 mg PO Q4H PRN PRN Reason: Pain (Mild 1-3)/fever Last Admin: 01/19/20 05:45 Dose: 650 mg Documented by: Acetaminophen/Codeine Phosphate (Tylenol With Codeine No.3 300mg/30mg) 1 tab PO Q6H PRN PRN Reason: moderate pain Last Admin: 01/19/20 05:45 Dose: 1 tab Documented by: Enoxaparin Sodium (Lovenox) 30 mg SUBCUT Q24H [place] Last Admin: 01/20/20 15:42 Dose: 30 mg Documented by: Hydralazine HCl (Apresoline) 10 mg IVPUSH ONETIME ONE Stop: 01/17/20 15:01 Last Admin: 01/17/20 15:23 Dose: 10 mg Documented by: Hydromorphone HCl (Dilaudid) 0.25 mg IVPUSH ONETIME ONE Stop: 01/17/20 08:31 Last Admin: 01/17/20 09:10 Dose: 0.25 mg Documented by: Sodium Chloride (Normal Saline) 1,000 mls @ 75 mls/hr IV ASDIRECTED [facility] Stop: 01/18/20 03:49 Last Admin: 01/17/20 15:24 Dose: 75 mls/hr Documented by: Sodium Chloride (Normal Saline) 1,000 mls @ 75 mls/hr IV ASDIRECTED [facility] Stop: 01/21/20 21:34 Last Admin: 01/20/20 22:11 Dose: 75 mls/hr Documented by: Levothyroxine Sodium (Synthroid) 100 mcg PO ACBREAKFAST [facility] Last Admin: 01/18/20 05:15 Dose: 100 mcg Documented by: Levothyroxine Sodium (Synthroid) 100 mcg PO ACBREAKFAST [facility] Last Admin: 01/21/20 10:24 Dose: Not Given Documented by: Losartan Potassium (Cozaar) 100 mg PO DAILY [facility] Last Admin: 01/21/20 08:17 Dose: 100 mg Documented by: Metoprolol Succinate (Toprol Xl) 50 mg PO DAILY [facility] Last Admin: 01/18/20 08:13 Dose: 50 mg Documented by: Metoprolol Succinate (Toprol Xl) 50 mg PO DAILY [facility] Last Admin: 01/21/20 10:25 Dose: Not Given Documented by: Morphine Sulfate (Morphine) 0.5 mg IVPUSH Q4H PRN PRN Reason: severe pain Last Admin: 01/17/20 12:57 Dose: 0.5 mg Documented by: Morphine Sulfate (Morphine) 1 mg IVPUSH Q4H PRN PRN Reason: Breakthrough Pain Last Admin: 01/20/20 07:12 Dose: 1 mg Documented by: Bimatoprost 0.01% (Ptom) 1 drop EYEBOTH BID [facility] Last Admin: 01/21/20 11:53 Dose: Not Given Documented by: Eye Relief Drops (Ptom) 0 each EYEBOTH DAILY [facility] Last Admin: 01/21/20 11:53 Dose: Not Given Documented by: Spironolactone 50 Mg (Ptom) 0 mg PO DAILY [facility] Timolol Maleate 0.5% (Ptom) 1 drop EYEBOTH BID [facility] Last Admin: 01/21/20 11:53 Dose: Not Given Documented by: Senna/Docusate Sodium (Senna Plus) 1 tab PO BID [facility] Last Admin: 01/21/20 10:25 Dose: Not Given Documented by: Sodium Polystyrene Sulfonate (Kayexalate) 15 gm PO Q8H [facility] Last Admin: 01/21/20 10:25 Dose: Not Given Documented by: Tramadol HCl (Ultram) 50 - 100 mg PO Q12H PRN PRN Reason: PAIN Last Admin: 01/20/20 22:09 Dose: 50 mg Documented by: - Exam Physical Findings Comments:: Patient found pulseless and apneic.
== END 2020-01-21 14:00 | disposition expired | DRG 551 ==
LOC: JD.ED 06:55 → JD.MS 11:38 → OBSVTOIN 01-18 10:19 → JD.MS 01-18 10:20
PROVIDERS: ADMIT Internal Medicine; ATTEND Internal Medicine
DX: S32.030A Wedge compression fracture of third lumbar vertebra, initial encounter for closed fracture (principal); E43 Unspecified severe protein-calorie malnutrition; S22.20XA Unspecified fracture of sternum, initial encounter for closed fracture; C85.93 Non-Hodgkin lymphoma, unspecified, intra-abdominal lymph nodes; C85.90 Non-Hodgkin lymphoma, unspecified, unspecified site; E87.1 Hypo-osmolality and hyponatremia; Z68.1 Body mass index [BMI] 19.9 or less, adult; R64 Cachexia; Z51.5 Encounter for palliative care; Z66 Do not resuscitate; R09.02 Hypoxemia; H40.9 Unspecified glaucoma; H35.30 Unspecified macular degeneration; I25.10 Atherosclerotic heart disease of native coronary artery without angina pectoris; I46.9 Cardiac arrest, cause unspecified; E78.5 Hyperlipidemia, unspecified; E83.42 Hypomagnesemia; K21.9 Gastro-esophageal reflux disease without esophagitis; M19.90 Unspecified osteoarthritis, unspecified site; E78.00 Pure hypercholesterolemia, unspecified; R51 Headache; M81.0 Age-related osteoporosis without current pathological fracture; H91.91 Unspecified hearing loss, right ear; E03.9 Hypothyroidism, unspecified; I10 Essential (primary) hypertension; Z20.828 Contact with and (suspected) exposure to other viral communicable diseases; M54.9 Dorsalgia, unspecified; M54.2 Cervicalgia; E87.5 Hyperkalemia; D75.89 Other specified diseases of blood and blood-forming organs; R62.7 Adult failure to thrive; W01.0XXA Fall on same level from slipping, tripping and stumbling without subsequent striking against object, initial encounter; Z79.890 Hormone replacement therapy; Z79.899 Other long term (current) drug therapy; Z87.81 Personal history of (healed) traumatic fracture; Z88.8 Allergy status to other drugs, medicaments and biological substances; Z86.19 Personal history of other infectious and parasitic diseases; Z98.49 Cataract extraction status, unspecified eye; Z90.89 Acquired absence of other organs; Z95.5 Presence of coronary angioplasty implant and graft; Z90.710 Acquired absence of both cervix and uterus; Z90.79 Acquired absence of other genital organ(s); Z98.890 Other specified postprocedural states; Z99.81 Dependence on supplemental oxygen; Z92.3 Personal history of irradiation; Z90.49 Acquired absence of other specified parts of digestive tract
CPT/HCPCS: 71046; 73502; 72128; 96361 ×2; 97162; 97530 ×2; 96374; 99285; 93005; 96372; 96376; 96375; 97166; 85025; 36415 ×2; 80053; 80048; 84100 ×2; 83735 ×2; 84484; 84443; 84439; 82570; 84300; 83935; A9270 ×14; J1650; J0360; J2270 ×3; J7030; J1170; U0002; G0378 ×3; 51798; 71250; 71250-26; 72125; 72125-26; 82607; 84145; 85045; 93010; 94761; 97110-GP; 99220; 99232; 99238